=== PATIENT | male | born 1940 | race Caucasian/White ===

== ENCOUNTER → 2018-08-09 08:14 | Outpatient (CLI) | payer MEDICARE, SELFPAY ==
--- NOTE | 2018-08-09 08:40 | RAD_ITS ---
STUDY: X-RAY - LUMBAR SPINE REASON FOR EXAM: Male, 77 years old. Back pain and bilateral feet numbness TECHNIQUE: 5 view(s) of the lumbar spine were obtained. COMPARISON: 01/31/2015 FINDINGS: Normal lumbar lordosis. There is no substantial scoliosis. There is a normal alignment of the vertebrae. There is multilevel endplate spondylosis of the lumbar vertebrae. There is multi-level degenerative disc disease with multi-level disc space narrowing. There is no demonstrated fracture. The soft tissue structures are unremarkable. RAD/L/S Spine Min 4 Views IMPRESSION: Degenerative changes. No significant change since 2014. Electronically Signed: Lenin Xavier DO at 9:00 EST Tel , Service support ,
[2018-08-09 10:36] LABS: Absolute Lymphocyte Count 2.75 X10^3/ul (0.83-4.51); Absolute Neutrophil Count 6.9 X10^3/uL (2.0-7.7); Basophil# 0.03 X10^3/uL; Basophil% 0.3 % (0-1); Eosinophil# 0.17 X10^3/uL; Eosinophils% 1.6 % (0-5); Hematocrit 42.6 % (40-54); Hemoglobin 14.1 g/dl (13.0-16.5); Lymphocyte # 2.75 X10^3/ul (4.0); Lymphocyte % 25.7 % (19-41); Mean Corp Hgb Conc 33.1 g/gl (32-36); Mean Corpuscular Hgb 30.5 pg (27.0-32.0); Mean Corpuscular Volume 92.2 fL (80-94); Mean Platelet Vol. 9.9 fl (6.2-12.0); Monocyte# 0.79 X10^3/uL; Monocyte% 7.4 % (0-10); Neutrophil # 6.89 X10^3/uL (2.7-7.7); Neutrophil % 64.5 % (47-70); Platelet Count 263 K/mm3 (150-450); RBC Distribution Width CV 13.8 % (11.6-14.6); RBC Distribution Width SD 45.6 fl (35.1-43.9); Red Blood Count 4.62 M/mm3 (4.6-6.2); White Blood Count 10.7 K/mm3 (4.4-11.0)
[2018-08-09 10:37] LABS: Color, Urine Yellow (Yellow); Glucose, Dipstick Normal (Normal); Ketone-Dipstick Negative (Negative); Leukocyte Esterase-Dipstick Negative /ul (Negative); Nitrite-Dipstick Negative (Negative); Occult Blood-Urine 10 /ul (Negative); Protein-Dipstick 100 mg/dl (Negative); Urine Bilirubin Dipstick Negative (Negative); Urine Clarity Clear (Clear); Urine Urobilinogen Normal (Normal)
[2018-08-09 10:42] LABS: POSITIVE COUNT NO; POSITIVE DIFFERENTIAL NO; POSITIVE MORPHOLOGY NO
[2018-08-09 11:12] LABS: ALB/GLOB Ratio 0.9 RATIO (0.9-2.4); AST(SGOT) 22 U/L (15-37); Alanine Aminotransfer ALT/SGPT 33 U/L (16-61); Albumin, Serum 3.5 g/dL (3.2-5.0); Alkaline Phosphatase 79 U/L (45-117); Anion Gap 10 (5-15); BUN 15 mg/dL (7-18); BUN/Creat Ratio 13.3 RATIO (10-20); Calcium,Total 8.7 mg/dL (8.5-10.1); Chloride 101 mmol/L (98-107); Cholesterol 205 mg/dL (200); Creatinine, Serum 1.13 mg/dL (0.70-1.30); EST Glomerular Filtration Rate 67 mL/min (>60); Est Glom Filt Rate - Afr Amer 81 mL/min (>60); Globulin 3.9 g/dL (2.2-4.2); Glucose 93 mg/dL (74-106); High Density Lipoprotein 45 mg/dL; PSA,Total - Annual Screen 0.73 ng/mL (0.00-4.00); Potassium 3.7 mmol/L (3.5-5.1); Protein, Total 7.4 g/dL (6.4-8.2); Sodium Level 142 mmol/L (136-145); Triglycerides 185 mg/dL; Very Low Density Lipoprotein 37 mg/dL (5-40)
[2018-08-09 11:16] LABS: Vitamin B12 632 pg/mL (211-911)
--- OUTSIDE RECORDS SUMMARY | 2018-09-20 20:42 | XMS RPT_ITS ---
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, Hospital unspecified / Repository G60.9(ICD-10) 08/09/2018 Unknown Z12.5 - Encounter Charli Delvalle Active [place] for screening for [facility] malignant neoplasm Hospital of prostate / Repository Z12.5(ICD-10) 08/09/2018 Unknown M54.16 - MookCharli miles Active [place] Radiculopathy, [facility] lumbar region / Hospital M54.16(ICD-10) Repository PROCEDURES PROCEDURES No Procedure Records FoundRESULTS RESULTS L/S SPINE MIN 4 Observed: 08/09/2018 Status: F Source: [place] VIEWS 8:40 AM [facility] REPOSITORY [facility] Imaging Services [address] [place] [address] L/S Spine Min 4 Views MR#: [id number] Acct: [id number] Name: BARON MCCABE Rep #: [id number] : 1940 M 77 From: Lenin Xavier DO PCP: Charli Delvalle MD Status: REG CLI Study: L/S Spine Min 4 Views Date of Exam: 08/09/18 Exam# [id number] Ordering Dr: Charli Delvalle MD STUDY: X-RAY - LUMBAR SPINE REASON FOR EXAM: Male, 77 years old. Back pain and bilateral feet numbness TECHNIQUE: 5 view(s) of the lumbar spine were obtained. COMPARISON: 01/31/2015 FINDINGS: Normal lumbar lordosis. There is no substantial scoliosis. There is a normal alignment of the vertebrae. There is multilevel endplate spondylosis of the lumbar vertebrae. There is multi-level degenerative disc disease with multi-level disc space narrowing. There is no demonstrated fracture. The soft tissue structures are unremarkable. RAD/L/S Spine Min 4 Views IMPRESSION: Degenerative changes. No significant change since 2014. Electronically Signed: Lenin Xavier DO at 9:00 EST Tel , Service support , CC: Charli Delvalle MD [employer] Engineer: Signed URINALYSIS, ROUTINE Collected: 08/09/2018 Status: F Source: [place] (DIPSTICK) 8:23 AM [facility] REPOSITORY Order Comment: How was Urine Obtained? CLEAN CATCH TYPE CODE TESTS RESULT OUT OF RANGE REFERENCE UNITS LAB L400.3000 Yellow COLOR Normal Yellow LAB L400.3050 Clear Normal CLARITY Clear LAB L400.3200 Normal mg/dl Normal GLUCOSE, UR Normal LAB L400.3300 Negative mg/dL Normal BILIRUBIN URINE Negative LAB L400.3400 Negative mg/dl Normal KETONE UR Negative LAB L400.3465 1.002-1.030 Normal SP.GR. DIPSTX 1.010 LAB L400.3550 5.0 - 8.0 pH UR Normal 8.0 LAB L400.3600 Negative mg/dl High PROT DIPSTX 100 LAB L400.3700 Normal mg/dl Normal UROBILI Normal LAB L400.3750 Negative Normal NITRITE UR Negative LAB L400.3780 Negative /ul High 10 OCCULT BLOOD-UR LAB L400.3800 Negative /ul LEUK Normal ESTERASE Negative Performed By: #### L400.2010 #### [facility] [place], [address] CBC W/DIFF, AUTOMATED Collected: 08/09/2018 Status: F Source: [place] 8:23 AM [facility] REPOSITORY TYPE CODE TESTS RESULT OUT OF RANGE REFERENCE UNITS LAB L100.1000 4.4-11.0 K/mm3 Normal WBC 10.7 LAB L100.1200 4.6-6.2 M/mm3 Normal RBC 4.62 LAB L100.1300 13.0-16.5 g/dl Normal HGB 14.1 LAB L100.1400 40-54 % Normal HCT 42.6 LAB L100.1500 80-94 fL Normal MCV 92.2 LAB L100.1600 27.0-32.0 pg Normal MCH 30.5 LAB L100.1700 32-36 g/gl Normal MCHC 33.1 LAB L100.1810 11.6-14.6 % Normal RDW CV 13.8 LAB L100.1820 35.1-43.9 fl High RDW SD 45.6 LAB L100.1900 150-450 K/mm3 Normal PLT 263 LAB L100.2000 6.2-12.0 fl Normal MPV 9.9 LAB L100.2100 47-70 % Normal NEUT% 64.5 LAB L100.2200 19-41 % Normal LY% 25.7 LAB L100.2300 0-10 % Normal MONO% 7.4 LAB L100.2400 0-5 % Normal EO% 1.6 LAB L100.2500 0-1 % Normal BASO% 0.3 LAB L100.2550 0.0-0.9 % Normal IM GRAN % 0.500 Result Comment: IG% - Immature Granulocytes (promyelocytes, myelocytes and metamyelocytes) > 1% indicates that a LEFT SHIFT is Present. LAB L100.2620 2.0-7.7 X10 3/uL Normal Absolute Neut 6.9 LAB L100.2720 0.83-4.51 X10 3/ul Normal Absolute Lymph 2.75 Performed By: #### L100.0100 #### [facility] [address] [place], [address] COMPREHENSIVE METABOLIC Collected: 08/09/2018 Status: F Source: [place] [facility] 8:23 AM [facility] REPOSITORY TYPE CODE TESTS RESULT OUT OF RANGE REFERENCE UNITS LAB L501.0100 74-106 mg/dL Normal GLU 93 Result Comment: Please note revised GLUCOSE reference range effective 2017. LAB L501.1000 7-18 mg/dL Normal BUN 15 LAB L501.1100 0.70-1.30 mg/dL Normal CREAT,SERUM 1.13 Result Comment: The validity of the calculated GFR AND GFRAA in patients over 70 years has not been determined. Clinical correlation is essential. LAB L501.1110 >60 mL/min Normal EST GFR 67 Result Comment: Non- GFR Calc LAB L501.1115 >60 mL/min Normal EST GFR - AA 81 Result Comment: GFR Calc LAB L501.1300 10-20 RATIO Normal BUN/CRE 13.3 LAB L501.1500 6.4-8.2 g/dL T Normal PROT 7.4 LAB L501.1800 3.2-5.0 g/dL Normal ALB 3.5 LAB L501.1950 2.2-4.2 g/dL Normal GLOB 3.9 LAB L501.2000 0.9-2.4 RATIO Normal A/G 0.9 LAB L501.2200 8.5-10.1 mg/dL CA Normal 8.7 LAB L501.4100 15-37 U/L Normal AST 22 LAB L501.4305 45-117 U/L Normal ALK P 79 LAB L501.4405 16-61 U/L Normal ALT 33 LAB L501.4600 0.20-1.00 mg/dL T Normal BILI 0.50 LAB L501.5300 136-145 mmol/L NA Normal 142 LAB L501.5600 3.5-5.1 mmol/L K Normal 3.7 LAB L501.5900 98-107 mmol/L CL Normal 101 LAB L501.6100 21.0-32.0 mmol/L Normal CO2 31.0 LAB L501.6200 5-15 Normal GAP 10 Performed By: #### L500.4050, L500.4100, L501.9910 #### [facility] [address] [facility]. [place], [place], [address] LIPID PROFILE Collected: 08/09/2018 Status: F Source: [place] 8:23 AM [facility] REPOSITORY TYPE CODE TESTS RESULT OUT OF RANGE REFERENCE UNITS LAB L501.4900 200 mg/dL High CHOL 205 Result Comment: <200 mg/dL Desirable 200-240 mg/dL Borderline >240 mg/dL High Risk LAB L501.5000 mg/dL Normal TRIG 185 Result Comment: The drugs N-Acetylcysteine and Metamizole may falsely depress this assay. Serum Triglycerides Reference Interval Normal <150 mg/dL Borderline high 150 - 199 mg/dL High 200 - 499 mg/dL Very High > or = 500 mg/dL LAB L501.6400 mg/dL Normal HDL 45 Result Comment: The drugs N-Acetylcysteine and Metamizole may falsely depress this assay. Reference Range HDL <40 mg/dL Low HDL Cholesterol HDL >or= 60 mg/dL High HDL Cholesterol LAB L501.6500 0-130 mg/dL Normal LDL 123 LAB L501.6600 5-40 mg/dL Normal VLDL 37 Performed By: #### L500.4050, L500.4100, L501.9910 #### [facility] [address] [facility]. [place], [place], [address] PSA,TOTAL - ANNUAL Collected: 08/09/2018 Status: F Source: [place] SCREEN 8:23 AM [facility] REPOSITORY TYPE CODE TESTS RESULT OUT OF RANGE REFERENCE UNITS LAB L501.9910 0.00-4.00 ng/mL Normal PSA,TOT 0.73 SCREEN Result Comment: This test was performed using the TPSA assay method for the [employer] chemistry system. Values obtained with different assay methods cannot be used interchangably. When changing PSA assays in the course of monitoring a patient, additional sequential testing should be carried out to confirm baseline values. Performed By: #### L500.4050, L500.4100, L501.9910 #### [facility] [address] [place], [address] VITAMIN B12 Collected: 08/09/2018 Status: F Source: [place] 8:23 AM [facility] REPOSITORY TYPE CODE TESTS RESULT OUT OF RANGE REFERENCE UNITS LAB L503.0105 211-911 pg/mL Normal Vitamin B12 632 Performed By: #### L503.0105 #### [facility] [address] [place], [address] ALLERGIES ALLERGIES DATE TYPE / CODE NAME / CODE REACTION SEVERITY SOURCE 09/04/2014 Drug Penicillins/ Rash Unknown [facility] Allergy/4160 [id number]([facility] [address](SNOMED XNORM) Repository CT) ENCOUNTERS ENCOUNTERS ADMIT/DISCHARGE ACCOUNT ADMITTING ENCOUNTER LOCATION SOURCE NUMBER CLASS 08/09/2018 [id number] Ambulatory [place] [facility] ing:MTLAB Repository PAYERS PAYERS ENCOUNTER GUARANTOR PAYER SUBSCRIBER SOURCE 08/09/2018 Baron Ruby Primary Baron Mccabe [id number] Insurance:CHRISTOPHER Mccabe SRDOB: Community [place] [employer] [id number] Number: Repository [id number]: [phone] [id number] [phone] () Date:[id number] [address] [place] [id number]: 08/09/2018 Secondary NOT GIVENUNK [place] Insurance:SELF PAY [facility] Number: Effective Repository Date:2018-08-09
== END ==
PROVIDERS: Family Provider Family Medicine; PCP Family Medicine; Referring Provider Family Medicine; Visit Provider Family Medicine
DX: Z00.00 Encounter for general adult medical examination without abnormal findings (principal); I10 Essential (primary) hypertension; G60.9 Hereditary and idiopathic neuropathy, unspecified; Z12.5 Encounter for screening for malignant neoplasm of prostate; M54.16 Radiculopathy, lumbar region
CPT/HCPCS: 36415; 72110; 80053; 80061; 81002; 82607; 84153; 85025; G0103

== ENCOUNTER → 2019-08-15 09:26 | Outpatient (CLI) | payer MEDICARE, SELFPAY ==
[2019-08-15 12:47] LABS: Color, Urine Yellow (Yellow); Glucose, Dipstick Normal (Normal); Ketone-Dipstick Negative (Negative); Leukocyte Esterase-Dipstick Negative /ul (Negative); Nitrite-Dipstick Negative (Negative); Occult Blood-Urine 10 /ul (Negative); Protein-Dipstick 100 mg/dl (Negative); Urine Bilirubin Dipstick Negative (Negative); Urine Clarity Clear (Clear); Urine Urobilinogen Normal (Normal)
[2019-08-15 12:49] LABS: Absolute Lymphocyte Count 1.77 X10^3/uL (0.83-4.51); Basophil# 0.06 X10^3/uL; Basophil% 0.5 % (0-1); Eosinophil# 0.13 X10^3/uL; Hematocrit 43.5 % (40-54); Hemoglobin 14.2 g/dL (13.0-16.5); Lymphocyte # 1.77 X10^3/ul (4.0); Lymphocyte % 13.3 % (19-41); Mean Corp Hgb Conc 32.6 g/dL (32-36); Mean Corpuscular Hgb 29.5 pg (27.0-32.0); Mean Corpuscular Volume 90.2 fL (80-94); Mean Platelet Vol. 10.2 fl (6.2-12.0); Monocyte# 1.24 X10^3/uL; Monocyte% 9.3 % (0-10); NRBC Flagged by Analyzer 0 % (0-5); Neutrophil # 10.03 X10^3/uL (2.7-7.7); Neutrophil % 75.1 % (47-70); Platelet Count 200 K/mm3 (150-450); RBC Distribution Width CV 14.6 % (11.6-14.6); RBC Distribution Width SD 48.4 fl (35.1-43.9); Red Blood Count 4.82 M/mm3 (4.6-6.2); White Blood Count 13.3 K/mm3 (4.4-11.0)
[2019-08-15 13:15] LABS: AST(SGOT) 21 U/L (15-37); Alanine Aminotransfer ALT/SGPT 27 U/L (16-61); Albumin, Serum 3.7 g/dL (3.2-5.0); Alkaline Phosphatase 91 U/L (45-117); Anion Gap 6 (5-15); BUN 18 mg/dL (7-18); BUN/Creat Ratio 14.8 RATIO (10-20); Chloride 102 mmol/L (98-107); Cholesterol 212 mg/dL (200); Creatinine, Serum 1.22 mg/dL (0.70-1.30); EST Glomerular Filtration Rate 61 mL/min (>60); Est Glom Filt Rate - Afr Amer 74 mL/min (>60); Globulin 3.6 g/dL (2.2-4.2); Glucose 101 mg/dL (74-106); High Density Lipoprotein 45 mg/dL; PSA,Total - Annual Screen 0.85 ng/mL (0.00-4.00); Potassium 3.6 mmol/L (3.5-5.1); Protein, Total 7.3 g/dL (6.4-8.2); Sodium Level 139 mmol/L (136-145); Triglycerides 143 mg/dL; Very Low Density Lipoprotein 29 mg/dL (5-40)
[2019-08-15 14:48] LABS: Vitamin B12 755 pg/mL (211-911)
== END ==
PROVIDERS: Family Provider Family Medicine; PCP Family Medicine; Referring Provider Family Medicine; Visit Provider Family Medicine
DX: Z00.00 Encounter for general adult medical examination without abnormal findings (principal); I10 Essential (primary) hypertension; G60.9 Hereditary and idiopathic neuropathy, unspecified; Z12.5 Encounter for screening for malignant neoplasm of prostate
CPT/HCPCS: 36415; 80053; 80061; 81002; 82607; 84153; 85025; G0103

== ENCOUNTER → 2019-11-08 15:02 | Outpatient (CLI) | payer MEDICARE, SELFPAY ==
--- NOTE | 2019-11-08 15:05 | RAD_ITS ---
STUDY: X-RAY - RIGHT KNEE REASON FOR EXAM: Right knee pain, several recent falls. TECHNIQUE: 4 view(s) of the knee. COMPARISON: Radiographs 01/17/2010. FINDINGS: Normal visualized distal femur. Normal visualized proximal tibia and fibula. Normal proximal tibiofibular articulation. There is moderate joint space narrowing of the medial femorotibial compartment, increased since the prior study. Normal lateral femorotibial compartment. Normal patellofemoral articulation. There is a joint effusion. RAD/Knee 4 or More Views IMPRESSION: Arthrosis of the medial femorotibial compartment. Joint effusion. Electronically Signed: Asa Lilly MD at 9:55 EST Tel , Service support ,
== END ==
PROVIDERS: PCP Family Medicine; Referring Provider Family Medicine; Visit Provider Family Medicine
DX: M25.561 Pain in right knee (principal)
CPT/HCPCS: 73564

== ENCOUNTER 2020-01-23 17:12 | Inpatient (IN) | payer OTHER, MEDICARE, SELFPAY ==
[2020-01-23] VITALS (8 sets, daily range): BP systolic 112–157; BP diastolic 50–98; PULSE 82–90; RESP 17–26; TEMP 37.1–37.7; O2SAT 91–96; BMI 37.9; BMI 37.5
--- NOTE | 2020-01-23 17:38 | ED.VIS.GEN ---
History of Present Illness Chief Complaint: Fever Informant: Patient Onset: Today Narrative: Patient presents with a fever up to 101.5 at home today. He took Tylenol approximately 5-1/2 hours ago. Patient's only complaint is pain to his bilateral lower extremities. Last Wednesday, 5 days ago, patient had a fall at work. He got his legs caught in some fire machinery and fell approximately 2 feet to the ground. He was seen at [facility] and had x-rays which were unremarkable. He continues to have swelling and bruising to his lower extremities. He also reports mild left rib pain, worse with cough. He did strike his ribs at the time. Patient denies significant cough or shortness of breath. He denies urinary symptoms. - Past Medical History (1) HTN (hypertension) Status: Chronic Past Medical History - Allergies and Home Meds Allergies/Adverse Reactions: Allergies Penicillins [PCN] Allergy (Verified 01/23/20 17:13) Rash oxycodone Adverse Reaction (Verified 01/23/20 17:31) PT UNSURE OF REACTION Primary Care Physician: Charli Delvalle MD [Primary Care Provider] - Prior records reviewed: Yes Surgical History: repair Smoking Status: Former smoker Review of Systems General: Reports: Fever Eyes: Denies: Visual changes - bilaterally ENT: Denies: Bilateral ear pain Cardiovascular: Reports: Chest pain - Left rib pain Respiratory: Denies: Dyspnea, Cough Gastrointestinal: Denies: Abdominal pain, Nausea, Vomiting, Diarrhea Musculoskeletal: Reports: Swelling, Extremity Pain Skin: Reports: - - Ecchymoses Neurological: Denies: Headache Hematologic: Denies: Easy bruising, Easy bleeding Allergy: Denies: Uticaria Physical Exam Vital Signs/Narrative: Vital Signs Temp Pulse Resp BP Pulse Ox 01/23/20 17:28 84 23 H 95 01/23/20 17:14 98.7 F 90 17 130/80 H 94 Inital Vital Signs reviewed: Yes General: Well nourished, Well developed Head: Normocephalic ENT: Moist mucous membranes Neck: Supple Cardiovascular: Regular rate, Regular rhythm Respiratory: No distress, CTA bilaterally, Chest tenderness - Mild left anterior chest wall tenderness. No crepitus. Abdomen: Soft, Nontender Extremities: - - 3+ edema to the bilateral lower extremities. Large area of ecchymosis noted on the posterior surface of the right lower leg. Neurological: Alert, Oriented x3 Psychological: Normal affect Diagnostic/Tx/Re-eval Impressions Chest X-Ray 01/23/20 17:57 IMPRESSION: No acute thoracic pathology. Electronically Signed: Ever Ly, at 18:07 EDT Tel , Service support , Venous Duplex 01/23/20 18:03 IMPRESSION: Normal venous Doppler ultrasound of the bilateral lower extremities. Electronically Signed: Ever Ly, at 19:05 EDT Tel , Service support , 01/23/20 17:57 Chest 1 View (Portable) [RAD] Stat Laboratory Results 01/23/20 01/23/20 01/23/20 17:45 17:45 19:50 WBC 21.6 H RBC 4.08 L Hgb 12.6 L Hct 38.8 L MCV 95.1 H MCH 30.9 MCHC 32.5 RDW Std Deviation 47.0 H RDW Coeff of Louis 13.6 Plt Count 269 MPV 10.0 Immature Gran % (Auto) 1.000 H Neut % (Auto) 77.4 H Lymph % (Auto) 12.4 L [place] % (Auto) 8.9 Eos % (Auto) 0.1 Baso % (Auto) 0.2 Absolute Neuts (auto) 16.7 H Absolute Lymphs (auto) 2.68 Nucleated RBC % 0 Differential Comment SCANNED Sodium 134 L Potassium 3.6 Chloride 96 L Carbon Dioxide 30.0 Anion Gap 8 BUN 44 H Creatinine 1.77 H Estim Creat Clear Calc 31.54 Est GFR (MDRD) Af Amer 48 L Est GFR (MDRD) Non-Af 40 L BUN/Creatinine Ratio 24.9 H Glucose 129 H Lactic Acid Calcium 9.2 Urine Color Yellow Urine Clarity Sl. Cloudy Urine pH 5.0 Ur Specific [place] 1.020 Urine Protein 100 H Urine Glucose (UA) Normal Urine Ketones Negative Urine Occult Blood 50 H Urine Nitrite Negative Urine Bilirubin Negative Urine Urobilinogen Normal Ur Leukocyte Esterase 25 H Urine RBC 0-5 SEEN Urine WBC 0-5 SEEN Ur Squamous Epith Cells 0-5 SEEN Amorphous Sediment 1+ URATE Urine Bacteria 0 SEEN Hyaline Casts 0-5 SEEN Fine Granular Casts 0-5 SEEN Urine Mucus 0 SEEN 01/23/20 20:05 WBC RBC Hgb Hct MCV MCH MCHC RDW Std Deviation RDW Coeff of Louis Plt Count MPV Immature Gran % (Auto) Neut % (Auto) Lymph % (Auto) [place] % (Auto) Eos % (Auto) Baso % (Auto) Absolute Neuts (auto) Absolute Lymphs (auto) Nucleated RBC % Differential Comment Sodium Potassium Chloride Carbon Dioxide Anion Gap BUN Creatinine Estim Creat Clear Calc Est GFR (MDRD) Af Amer Est GFR (MDRD) Non-Af BUN/Creatinine Ratio Glucose Lactic Acid 1.4 Calcium Urine Color Urine Clarity Urine pH Ur Specific [place] Urine Protein Urine Glucose (UA) Urine Ketones Urine Occult Blood Urine Nitrite Urine Bilirubin Urine Urobilinogen Ur Leukocyte Esterase Urine RBC Urine WBC Ur Squamous Epith Cells Amorphous Sediment Urine Bacteria Hyaline Casts Fine Granular Casts Urine Mucus - Medical Decision Making Laboratory evaluation does reveal significant leukocytosis. Creatinine is elevated above baseline. Repeat temperature here is been up to 99.9. At this time patient does qualify as sepsis but do not have a confirmed source. He is given cefepime and vancomycin for unknown source sepsis antibiotics. I will also have him swab for Covid as I do not have another source for his infection. I will discuss patient with the hospitalist for admission. ED Disposition - Plan for ED Patient: Disposition: Acute Care Hospital [facility] Diagnosis: Sepsis Referrals: Charli Delvalle MD [Primary Care Provider] -
--- NOTE | 2020-01-23 17:57 | RAD_ITS ---
STUDY: X-RAY CHEST REASON FOR EXAM: Male, 79 years old. Fever TECHNIQUE: Frontal view of the chest COMPARISON: None. FINDINGS: The lungs are clear. There are no pleural effusions. There is no pneumothorax. The heart is normal in size. The visualized osseous structures are within normal limits. RAD/Chest 1 View (Portable) IMPRESSION: No acute thoracic pathology. Electronically Signed: Ever Ly, at 18:07 EDT Tel , Service support ,
--- NOTE | 2020-01-23 18:03 | US_ITS ---
STUDY: VENOUS DOPPLER ULTRASOUND - BILATERAL LOWER EXTREMITIES REASON FOR EXAM: Male, 79 years old. Pain and swelling TECHNIQUE: Ultrasound evaluation of the deep vein system to include brady-scale imaging and compression was performed. Brady-scale imaging and Doppler sonographic evaluation, including duplex spectral analysis and qualitative color flow sonography, was performed. COMPARISON: None. FINDINGS: RIGHT LEG Common Femoral Vein: Normal compression, spontaneity and augmentation. Normal color Doppler. Superficial Femoral Proximal: Normal compression, spontaneity and augmentation. Normal color Doppler. Superficial Femoral Middle: Normal compression, spontaneity and augmentation. Normal color Doppler. Superficial Femoral Distal: Normal compression, spontaneity and augmentation. Normal color Doppler. Popliteal Vein: Normal compression, spontaneity and augmentation. Normal color Doppler. Posterior Tibial Vein: Normal compression, spontaneity and augmentation. Normal color Doppler. The visualized soft tissues are unremarkable. LEFT LEG Common Femoral Vein: Normal compression, spontaneity and augmentation. Normal color Doppler. Superficial Femoral Proximal: Normal compression, spontaneity and augmentation. Normal color Doppler. Superficial Femoral Middle: Normal compression, spontaneity and augmentation. Normal color Doppler. Superficial Femoral Distal: Normal compression, spontaneity and augmentation. Normal color Doppler. Popliteal Vein: Normal compression, spontaneity and augmentation. Normal color Doppler. Posterior Tibial Vein: Normal compression, spontaneity and augmentation. Normal color Doppler. The visualized soft tissues are unremarkable. US/Venous Duplex Imag/Wes Extrem IMPRESSION: Normal venous Doppler ultrasound of the bilateral lower extremities. Electronically Signed: Ever Aliyah, at 19:05 EDT Tel , Service support ,
[2020-01-23 18:21] LABS: Anion Gap 8 (5-15); BUN 44 mg/dL (7-18); BUN/Creat Ratio 24.9 RATIO (10-20); Calcium,Total 9.2 mg/dL (8.5-10.1); Chloride 96 mmol/L (98-107); Creatinine, Serum 1.77 mg/dL (0.70-1.30); EST Glomerular Filtration Rate 40 mL/min (>60); Est Glom Filt Rate - Afr Amer 48 mL/min (>60); Estimated Creatinine Clearance 31.54 ml/min; Glucose 129 mg/dL (74-106); Potassium 3.6 mmol/L (3.5-5.1); Sodium Level 134 mmol/L (136-145)
[2020-01-23 18:26] LABS: Absolute Lymphocyte Count 2.68 X10^3/uL (0.83-4.51); Absolute Neutrophil Count 16.7 X10^3/uL (2.0-7.7); Basophil# 0.04 X10^3/uL; Basophil% 0.2 % (0-1); Eosinophil# 0.03 X10^3/uL; Eosinophils% 0.1 % (0-5); Hematocrit 38.8 % (40-54); Hemoglobin 12.6 g/dL (13.0-16.5); Lymphocyte # 2.68 X10^3/ul (4.0); Lymphocyte % 12.4 % (19-41); Mean Corp Hgb Conc 32.5 g/dL (32-36); Mean Corpuscular Hgb 30.9 pg (27.0-32.0); Mean Corpuscular Volume 95.1 fL (80-94); Monocyte# 1.92 X10^3/uL; Monocyte% 8.9 % (0-10); NRBC Flagged by Analyzer 0 % (0-5); Neutrophil # 16.74 X10^3/uL (2.7-7.7); Neutrophil % 77.4 % (47-70); POSITIVE DIFFERENTIAL YES; Platelet Count 269 K/mm3 (150-450); RBC Distribution Width CV 13.6 % (11.6-14.6); Red Blood Count 4.08 M/mm3 (4.6-6.2); White Blood Count 21.6 K/mm3 (4.4-11.0)
[2020-01-23 18:27] LABS: Differential Indicated SCAN CRITERIA MET
[2020-01-23 18:44] LABS: Differential Comment SCANNED
[2020-01-23 19:56] LABS: Bacteria 0 SEEN /hpf (None Seen); Mucous, Urine 0 SEEN /hpf (<or=2+)
--- NOTE | 2020-01-23 20:02 | ED.RN ---
spoke with Dr. Devlin- ordering a lactic acid for sepsis alert.
[2020-01-23 20:03] LABS: Color, Urine Yellow (Yellow); Glucose, Dipstick Normal (Normal); Ketone-Dipstick Negative (Negative); Leukocyte Esterase-Dipstick 25 /ul (Negative); Nitrite-Dipstick Negative (Negative); Occult Blood-Urine 50 /ul (Negative); Protein-Dipstick 100 mg/dl (Negative); Urine Bilirubin Dipstick Negative (Negative); Urine Clarity Sl. Cloudy (Clear); Urine Urobilinogen Normal (Normal)
[2020-01-23 20:12] LABS: Red Blood Cells-Urine 0-5 SEEN /hpf (0-5); Squamous Epithelial Cells - UA 0-5 SEEN /hpf (0-5); White Blood Cells 0-5 SEEN /hpf (0-5)
[2020-01-23 20:13] LABS: Amorphous Sediment 1+ URATE; Fine Granular Cast- Urine 0-5 SEEN /lpf (0-5); Hyaline Cast 0-5 SEEN /lpf (0-5)
[2020-01-23 20:40] LABS: Lactic Acid 1.4 mmol/L (0.4-1.9)
--- NOTE | 2020-01-23 21:28 | HP.PCM_ITS ---
Problem List (1) Cardiomyopathy Status: Chronic Qualifiers: Cardiomyopathy type: unspecified Qualified Code(s): I42.9 - Cardiomyopathy, unspecified (2) Congenital heart anomaly Status: Chronic (3) LLOYD (acute kidney injury) Status: Acute (4) SIRS (systemic inflammatory response syndrome) Status: Acute (5) Lower extremity weakness Status: Acute Qualifiers: Laterality: bilateral Qualified Code(s): R29.898 - Other symptoms and signs involving the musculoskeletal system (6) HTN (hypertension) Status: Chronic History of Present Illness Date of Admission: 01/23/20 Chief Complaint: weakness The patient is a 79 year old M who on last Wednesday had 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 Patient states that he fell roughly 2 to 3 feet. He injured his ankles and hit his head. Patient was evaluated by Worker's Comp. service, [facility], who he states did imaging and then subsequently sent him home. He does not think that he had a head CT. He denies any loss of consciousness. Since then, he is just been weak in his lower extremities been unable to get up. He has been experiencing fevers as of today and presented to the emergency room. In the emergency room, he was afebrile, however, his white count was 21,000 and he had acute kidney injury with a creatinine of 1.77. Chest x-ray was unremarkable as well as urinalysis. Patient was started on cefepime as well as vancomycin. COVID-19 testing was performed and still pending at this time. Patient denies any known sick contacts with COVID. He denies any bowel or bladder incontinen ce. He states that normally he uses a cane just to help with stabilization but normally is able to get up and down okay with with his legs but since his injury has been unable to do so. He states that he is having increased lower extremity edema as well as some skin tears to his lower extremities. [] Past Medical History Past Medical History (Chronic Problems): Chronic Problems Cardiomyopathy (Chronic) Congenital heart anomaly (Chronic) HTN (hypertension) (Chronic) Allergies Penicillins [PCN] Allergy (Verified 01/23/20 17:13) Rash oxycodone Adverse Reaction (Verified 01/23/20 17:31) PT UNSURE OF REACTION Home Medications: Ambulatory Orders Medication Instructions Recorded Acetaminophen [Tylenol Extra 500 mg PO Q4H PRN PRN 01/23/20 Strength] Calcium Carbonate [Tums] 1,000 mg PO DAILY@0800 01/23/20 Saab Extract 1,200 mg PO DAILY 01/23/20 Cider Vinegar [Apple Cider Vinegar] 300 mg PO BID 01/23/20 Hydrochlorothiazide [Hctz] 25 mg PO DAILY 01/23/20 Lisinopril [Zestril] 40 mg PO DAILY 01/23/20 Metoprolol Succinate [Toprol Xl] 100 mg PO DAILY 01/23/20 Multivitamins,Therapeutic 1 tab PO DAILY 01/23/20 [Multivitamin] Selenium 200 mcg PO DAILY 01/23/20 Verapamil HCl [Verapamil ER] 240 mg PO DAILY 01/23/20 Surgical History: repair Smoking Status: Former smoker Tobacco Use: Non-smoker Alcohol: None Drugs: None - *Family History Maternal History Items: - - No heart disease Review of Systems Constitutional: Reports: Fever. Denies: Chills Eyes: Denies: Blurred vision, Conjunctivae Inflammation HEENT: Denies: Head Aches, Sinus Congestion, Sinus Drainage Cardiovascular: Denies: Chest Pain, Palpitations Respiratory: Denies: Cough, Shortness of breath at rest, Sputum production Gastrointestinal: Denies: Abdominal Pain, Nausea, Vomiting Genitourinary: Denies: Dysuria, Incontinence Musculoskeletal: Reports: Leg Pain Skin: Reports: Lesions Neurological: Reports: Tremor - In upper extremities for years. Has not been looked into by a neurologist. He is unaware if he has an essential tremor or some other process. Comment: All review of systems were negative except as mentioned above in the history of present illness and the other review of systems. VTE Information - Inpt Only VTE Present on Admission: No VTE Mechan Device Prophylaxis: None VTE Pharm Prophylaxis ordered?: Yes Patient Problems: Active and Suspected Problems Sepsis (Acute) LLOYD (acute kidney injury) (Acute) SIRS (systemic inflammatory response syndrome) (Acute) Lower extremity weakness (Acute) - Physical Exam Vitals/I&O's: Vital Signs Temp Pulse Resp BP Pulse Ox 37.4 C H 85 20 H 119/88 H 94 01/23/20 21:20 01/23/20 21:20 01/23/20 21:20 01/23/20 21:20 01/23/20 21:20 Oxygen Delivery Method Room Air Weight: 106.594 kg Body Mass Index (BMI) 37.9 General: Alert, Cooperative, No apparent distress HEENT: Atraumatic, Normocephalic, - - No icterus Oral: Moist Mucosa, No Gingival or Mucosal Lesions/ Ulcerations Neck: No JVD, Negative Hepatojugular Reflux Lungs: Clear to auscultation, Normal air movement, No rhonchi, No wheeze Cardiovascular: Regular rate, Regular Rhythm, Normal S1, Normal S2, No murmurs Abdomen: Bowel Sounds Present, Soft, Non Tender, Non-Distended, Obese Extremities: No clubbing, No cyanosis, Edema Skin: - - Skin tear left anterior kraft. Bruising on the right lower extremity. Musculoskeletal: - - Tender palpation with palpation over his ankle. Neurological: - - No clonus. Muscle strength is diminished in the lower extremities with plantar flexion as well as dorsiflexion of the great toe. Psych/Mental Status: Normal Affect, Appropriate Laboratory Results 01/23/20 17:45: WBC 21.6 H, RBC 4.08 L, Hgb 12.6 L, Hct 38.8 L, MCV 95.1 H, MCH 30.9, MCHC 32.5, RDW Std Deviation 47.0 H, RDW Coeff of Louis 13.6, Plt Count 269, MPV 10.0, Immature Gran % (Auto) 1.000 H, Neut % (Auto) 77.4 H, Lymph % (Auto) 12.4 L, [place] % (Auto) 8.9, Eos % (Auto) 0.1, Baso % (Auto) 0.2, Absolute Neuts (auto) 16.7 H, Absolute Lymphs (auto) 2.68, Nucleated RBC % 0, Differential Comment SCANNED 01/23/20 17:45: Sodium 134 L, Potassium 3.6, Chloride 96 L, Carbon Dioxide 30.0, Anion Gap 8, BUN 44 H, Creatinine 1.77 H, Estim Creat Clear Calc 31.54, Est GFR (MDRD) Af Amer 48 L, Est GFR (MDRD) Non-Af 40 L, BUN/Creatinine Ratio 24.9 H, Glucose 129 H, Calcium 9.2 01/23/20 19:50: Urine Color Yellow, Urine Clarity Sl. Cloudy, Urine pH 5.0, Ur Specific [place] 1.020, Urine Protein 100 H, Urine Glucose (UA) Normal, Urine Ketones Negative, Urine Occult Blood 50 H, Urine Nitrite Negative, Urine Bilirubin Negative, Urine Urobilinogen Normal, Ur Leukocyte Esterase 25 H, Urine RBC 0-5 SEEN, Urine WBC 0-5 SEEN, Ur Squamous Epith Cells 0-5 SEEN, Amorphous Sediment 1+ URATE, Urine Bacteria 0 SEEN, Hyaline Casts 0-5 SEEN, Fine Granular Casts 0-5 SEEN, Urine Mucus 0 SEEN 01/23/20 20:05: Lactic Acid 1.4 01/23/20 21:00: COVID-19 (ALEXANDRA) Pending Chest x-ray reviewed and showed no acute process. Clinical Impression(s) from Imaging Studies Chest X-Ray 01/23/20 17:57 IMPRESSION: No acute thoracic pathology. Electronically Signed: Ever Ly, at 18:07 EDT Tel , Service support , Venous Duplex 01/23/20 18:03 IMPRESSION: Normal venous Doppler ultrasound of the bilateral lower extremities. Electronically Signed: Ever Ly, at 19:05 EDT Tel , Service support , Current Medications Vancomycin HCl 2,000 mg/ (Sodium Chloride) 540 mls @ 250 mls/hr IV X1 ONE Stop: 01/23/20 23:09 Assessment/Plan All Active Problems Sepsis (Acute) LLOYD (acute kidney injury) (Acute) SIRS (systemic inflammatory response syndrome) (Acute) Lower extremity weakness (Acute) 1. Systemic inflammatory response syndrome: Unclear source at this time so cannot definitively qualify this as sepsis though if source is later identified then could be then use his diagnosis. Etiology could be his from injury he sustained in his lower extremities. No evidence of any kind of clinical compartment syndrome at this time. Also patient could just also have potentially contracted an illness, such as COVID-19, that coincided with his recent injury. I would not feel that the COVID-19 would be elucidating his lower extremity weakness, however. Patient received cefepime and vancomycin in the emergency room, will continue with that and follow-up cultures and de- escalate antibiotics accordingly. Feel the risk for MRSA infection is low but will check a swab for MRSA and if that comes back negative then would recommend discontinuing vancomycin unless cultures would support the continued use of that. Patient being checked for COVID-19. No evidence of pneumonia on the chest x-ray nor any evidence of a urinary tract infection on the urinalysis. Check a d-dimer. 2. Acute kidney injury: Likely prerenal. Patient states that he has not been drinking very much. Will hold his HCTZ and lisinopril for now. Will give IV fluids. 3. Lower extremity weakness. This is subjective as well as objectively identified with decreased strength in his lower extremities. Will check an MRI of his back to see if there is been any injury. Ordering an MRI of his lumbar spine. May consider getting a lumbar of his thoracic spine if symptoms are still ongoing in the lumbar spine MRI was negative. Will have physical and occupational therapy evaluate him. 4. Recent workplace injury. 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 Because he hit his head will order head CT to evaluate for any other acute process. Clinically I do not suspect that he has had any acute issues, such as a subdural hematoma. At this time, I cannot say that his systemic inflammatory response syndrome is due to this workplace injury. 5. 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 Asked patient specifically what his congenital heart disorder was, such as PDA, he states that he does not now. Being that I do not know the extent of his cardiomyopathy would expressed caution with aggressive IV fluid. Continue with metoprolol succinate. 6. VTE prophylaxis: Moderate risk. Low molecular weight heparin. 7. Advanced care planning: Patient wishes to be full CODE STATUS. Inpatient E&M: 56177 Init Hosp L3
--- NOTE | 2020-01-23 21:58 | CT_ITS ---
STUDY: CT BRAIN WITHOUT CONTRAST REASON FOR EXAM: Male, 79 years old. Fall. RADIATION DOSAGE (If Supplied By Facility): CTDIvol = ( 44.99 ) mGy, DLP = ( 779.24 ) mGycm TECHNIQUE: Transaxial CT imaging of the brain was performed without administration of intravenous contrast material. Individualized dose optimization techniques were used for this CT. COMPARISON: None. FINDINGS: There is no acute bleed or infarct. There are chronic ischemic and atrophic changes. The ventricles are normal in configuration. There is no hydrocephalus. The visualized paranasal sinuses are clear. The mastoid air cells are well aerated. There is no skull fracture. CT/Brain/Head without Contrast IMPRESSION: No acute intracranial abnormality. Chronic ischemic and atrophic changes. Electronically Signed: Ever Ly, at 22:59 EDT Tel , Service support ,
[2020-01-23] MEDS: 0.9% Normal Saline 1,000 ML 150 ML IV (23:00)
[2020-01-24] VITALS (8 sets, daily range): BP systolic 141–162; BP diastolic 70–89; PULSE 72–89; RESP 16–22; TEMP 36.6–37.2; O2SAT 93–97
[2020-01-24 00:15] LABS: D-Dimer Quantitative (DVT/PE) 2.46 FEU/ug/m (0.27-0.49)
--- NOTE | 2020-01-24 02:43 | PCM.RX.CS ---
Consult Pharmacy has been consulted to manage selected antiobiotic: Vancomycin Type of Consult: New start Labs: Sodium 134 mmol/L (136-145) L 01/23/20 17:45 Potassium 3.6 mmol/L (3.5-5.1) 01/23/20 17:45 Chloride 96 mmol/L (98-107) L 01/23/20 17:45 Carbon Dioxide 30.0 mmol/L (21.0-32.0) 01/23/20 17:45 Anion Gap 8 (5-15) 01/23/20 17:45 BUN 44 mg/dL (7-18) H 01/23/20 17:45 Creatinine 1.77 mg/dL (0.70-1.30) H 01/23/20 17:45 Est GFR (MDRD) Af Amer 48 mL/min (>60) L 01/23/20 17:45 Est GFR (MDRD) Non-Af 40 mL/min (>60) L 01/23/20 17:45 BUN/Creatinine Ratio 24.9 RATIO (10-20) H 01/23/20 17:45 Glucose 129 mg/dL (74-106) H 01/23/20 17:45 Microbiology: Microbiology 01/23/20 21:00 Mucosa - Nasopharyngeal Coronavirus COVID-19 PCR - Final Goal Trough: 15-20 mcg/mL Pharmacy Plan for Drug Dosing: Pharmacy Service will continue to monitor and adjust dosing as required. Medications Vancomycin HCl 750 mg/ Sodium (Chloride) 265 mls @ 250 mls/hr IV Q12H PASCUAL Discontinued Medications Vancomycin HCl 2,000 mg/ (Sodium Chloride) 540 mls @ 250 mls/hr IV X1 ONE Stop: 01/23/20 23:09 Last Admin: 01/24/20 00:29 Dose: Infused Documented by: Follow-Up Labs: Trough Vancomycin Labs to be done on [date and time ordered]: 01/24 @ 9000
[2020-01-24 04:12] LABS: Basophil# 0.07 X10^3/uL; Basophil% 0.4 % (0-1); Eosinophil# 0.08 X10^3/uL; Eosinophils% 0.4 % (0-5); Hematocrit 36.7 % (40-54); Lymphocyte % 13.2 % (19-41); Mean Corp Hgb Conc 32.7 g/dL (32-36); Mean Corpuscular Hgb 30.7 pg (27.0-32.0); Mean Corpuscular Volume 93.9 fL (80-94); Mean Platelet Vol. 9.9 fl (6.2-12.0); Monocyte# 2.12 X10^3/uL; Monocyte% 11.2 % (0-10); NRBC Flagged by Analyzer 0 % (0-5); Neutrophil # 14.02 X10^3/uL (2.7-7.7); Neutrophil % 73.9 % (47-70); POSITIVE DIFFERENTIAL YES; Platelet Count 247 K/mm3 (150-450); RBC Distribution Width CV 13.6 % (11.6-14.6); RBC Distribution Width SD 46.2 fl (35.1-43.9); Red Blood Count 3.91 M/mm3 (4.6-6.2)
[2020-01-24 04:20] LABS: Differential Indicated SCAN CRITERIA MET
[2020-01-24 04:25] LABS: ALB/GLOB Ratio 0.5 RATIO (0.9-2.4); AST(SGOT) 35 U/L (15-37); Alanine Aminotransfer ALT/SGPT 29 U/L (16-61); Albumin, Serum 2.3 g/dL (3.2-5.0); Alkaline Phosphatase 75 U/L (45-117); Anion Gap 10 (5-15); BUN 47 mg/dL (7-18); BUN/Creat Ratio 29.2 RATIO (10-20); Calcium,Total 8.4 mg/dL (8.5-10.1); Chloride 97 mmol/L (98-107); Creatinine, Serum 1.61 mg/dL (0.70-1.30); EST Glomerular Filtration Rate 44 mL/min (>60); Est Glom Filt Rate - Afr Amer 54 mL/min (>60); Estimated Creatinine Clearance 34.67 ml/min; Globulin 4.7 g/dL (2.2-4.2); Glucose 141 mg/dL (74-106); Potassium 3.2 mmol/L (3.5-5.1); Sodium Level 136 mmol/L (136-145)
[2020-01-24 04:50] LABS: Anisocytosis RARE; Hypochromasia 1+; Platelet Estimate ADEQUATE (ADEQ); Polychromasia RARE
[2020-01-24] MEDS: Enoxaparin 120 MG/0.8 ML Syringe 110 MG SC ×2 (05:25→17:30)
--- NOTE | 2020-01-24 07:45 | MRI_ITS ---
STUDY: MRI LUMBAR SPINE WITHOUT CONTRAST REASON FOR EXAM: Male, 79 years old. leg weakness, unable to walk, s/p 2-3 ft fall, SIRS TECHNIQUE: Standardized fat and water weighted pulse sequences were obtained in the sagittal and axial planes. COMPARISON: 08/09/2018 FINDINGS: T12-L1: Normal endplates. Normal disc height, hydration and morphology. Normal bilateral facet joints. Normal central canal and bilateral lateral recesses. Normal bilateral intervertebral neural foramina. Normal lumbar lordosis. There is no substantial scoliosis. Normal conus medullaris that terminates at the T12/L1. L1-2: Mild bilateral facet hypertrophy and ligament flavum hypertrophy. Mild bilobed disc protrusion which produces mild spinal stenosis and mild bilateral neural foraminal stenosis. L2-3: Moderate bilateral facet hypertrophy and ligament flavum hypertrophy. Moderate broad disc protrusion produces severe spinal stenosis with moderate bilateral lateral recess stenosis with abutment of the L3 nerve roots bilaterally and moderate bilateral neural foraminal stenosis with abutment of the exiting L2 nerve roots bilaterally. L3-4: Mild bilateral facet hypertrophy and ligament flavum hypertrophy. Mild broad disc protrusion produces mild spinal stenosis with mild bilateral lateral recess stenosis, mild left neural foraminal stenosis, moderate right neural foraminal stenosis with abutment of the right L3 nerve root laterally. L4-5: Mild bilateral facet hypertrophy and ligament flavum hypertrophy. Mild broad disc protrusion produces mild focal stenosis and mild bilateral neural foraminal stenosis. L5-S1: Normal endplates. Normal disc height, hydration and morphology. Normal bilateral facet joints. Normal central canal and bilateral lateral recesses. Normal bilateral intervertebral neural foramina. Normal visualized sacral ala. Normal visualized paraspinous soft tissue structures. MRI/Spine Lumbar (Routine) IMPRESSION: Multilevel degenerative changes, as described above. Electronically Signed: Jamey Marvin MD at 9:15 EDT Tel , Service support ,
--- NOTE | 2020-01-24 07:56 | PN_ITS ---
Patient Problems: Active and Suspected Problems Sepsis (Acute) LLOYD (acute kidney injury) (Acute) SIRS (systemic inflammatory response syndrome) (Acute) Lower extremity weakness (Acute) Reason for Visit: Follow-up on debility Subjective: Patient was seen and examined. Denied any fever or chills or back pain. Unable to move his lower extremity. He is able to move his upper extremity. Denies any incontinence of urine or stool. He has decreased sensation in his lower extremity. Feels more on the left lower extremity than the right. Denies any fever or chills. His COVID?19 test was negative x2. Vitals/I&O's: Vital Signs Temp Pulse Resp BP Pulse Ox 98 F 72 16 141/89 H 94 01/24/20 06:00 01/24/20 06:00 01/24/20 06:00 01/24/20 06:00 01/24/20 06:00 Oxygen Delivery Method Room Air Weight: 105.5 kg Body Mass Index (BMI) 37.5 Intake and Output for Last 24 Hours 01/22/20 01/23/20 01/24/20 23:59 23:59 23:59 Intake Total 327.5 / 327.5 Balance 327.5 / 327.5 General: Alert, Oriented x3, Cooperative, No apparent distress, - - Morbidly obese HEENT: Atraumatic, PERRLA, EOMI, Normocephalic Oral: Moist Mucosa Neck: Supple Lungs: Clear to auscultation Cardiovascular: Regular rate, Regular Rhythm, Normal S1, Normal S2, No murmurs Abdomen: Bowel Sounds Present, Soft, Non Tender, Non-Distended, No Hepato- splenomegaly Extremities: No edema Skin: No rashes Musculoskeletal: No Tenderness to Palpation of Joints or Extremities Lymphatic: No Cervical, Supraclavicular, or Inguinal Adenopathy Neurological: Cranial nerves II-XII grossly intact, Neuro grossly intact Psych/Mental Status: Normal Affect, Appropriate Microbiology Past 72 Hours 01/23/20 21:00 Mucosa - Nasopharyngeal Coronavirus COVID-19 PCR - Final Laboratory Results 01/23/20 17:45: WBC 21.6 H, RBC 4.08 L, Hgb 12.6 L, Hct 38.8 L, MCV 95.1 H, MCH 30.9, MCHC 32.5, RDW Std Deviation 47.0 H, RDW Coeff of Louis 13.6, Plt Count 269, MPV 10.0, Immature Gran % (Auto) 1.000 H, Neut % (Auto) 77.4 H, Lymph % (Auto) 12.4 L, [place] % (Auto) 8.9, Eos % (Auto) 0.1, Baso % (Auto) 0.2, Absolute Neuts (auto) 16.7 H, Absolute Lymphs (auto) 2.68, Nucleated RBC % 0, Differential Comment SCANNED 01/23/20 17:45: Sodium 134 L, Potassium 3.6, Chloride 96 L, Carbon Dioxide 30.0, Anion Gap 8, BUN 44 H, Creatinine 1.77 H, Estim Creat Clear Calc 31.54, Est GFR (MDRD) Af Amer 48 L, Est GFR (MDRD) Non-Af 40 L, BUN/Creatinine Ratio 24.9 H, Glucose 129 H, Calcium 9.2 01/23/20 19:50: Urine Color Yellow, Urine Clarity Sl. Cloudy, Urine pH 5.0, Ur Specific [place] 1.020, Urine Protein 100 H, Urine Glucose (UA) Normal, Urine Ketones Negative, Urine Occult Blood 50 H, Urine Nitrite Negative, Urine Bilirubin Negative, Urine Urobilinogen Normal, Ur Leukocyte Esterase 25 H, Urine RBC 0-5 SEEN, Urine WBC 0-5 SEEN, Ur Squamous Epith Cells 0-5 SEEN, Amorphous Sediment 1+ URATE, Urine Bacteria 0 SEEN, Hyaline Casts 0-5 SEEN, Fine Granular Casts 0-5 SEEN, Urine Mucus 0 SEEN 01/23/20 20:05: Lactic Acid 1.4 01/23/20 21:00: COVID-19 (ALEXANDRA) Cancelled 01/23/20 23:30: D-Dimer Quant (PE/DVT) 2.46 H* 01/24/20 03:50: WBC 19.0 H, RBC 3.91 L, Hgb 12.0 L, Hct 36.7 L, MCV 93.9, MCH 30.7, MCHC 32.7, RDW Std Deviation 46.2 H, RDW Coeff of Louis 13.6, Plt Count 247, MPV 9.9, Immature Gran % (Auto) 0.900, Neut % (Auto) 73.9 H, Lymph % (Auto) 13.2 L, [place] % (Auto) 11.2 H, Eos % (Auto) 0.4, Baso % (Auto) 0.4, Absolute Neuts (auto) 14.0 H, Absolute Lymphs (auto) 2.50, Nucleated RBC % 0, Differential Comment , Diff Path Review May foll, Platelet Estimate ADEQUATE, Polychromasia RARE, Hypochromasia 1+, Anisocytosis RARE 01/24/20 03:50: Sodium 136, Potassium 3.2 L, Chloride 97 L, Carbon Dioxide 29.0, Anion Gap 10, BUN 47 H, Creatinine 1.61 H, Estim Creat Clear Calc 34.67, Est GFR (MDRD) Af Amer 54 L, Est GFR (MDRD) Non-Af 44 L, BUN/Creatinine Ratio 29.2 H, Glucose 141 H, Calcium 8.4 L, Total Bilirubin 0.80, AST 35, ALT 29, Alkaline Phosphatase 75, Total Protein 7.0, Albumin 2.3 L, Globulin 4.7 H, Al bumin/Globulin Ratio 0.5 L Current Medications Acetaminophen (Tylenol) 500 mg PO Q4H PRN PRN PRN Reason: Pain or Fever Calcium Carbonate (Tums) 1,000 mg PO DAILY@0800 [facility] Dextrose (D50w Syringe) 0 gm IV X1 PRN; Protocol PRN Reason: Hypoglycemia Enoxaparin Sodium (Lovenox) 110 mg SC Q12@0600,1800 [facility] Last Admin: 01/24/20 05:25 Dose: 110 mg Documented by: Glucagon () 1 mg IM .X1 PRN PRN Reason: Hypoglycemia Cefepime HCl 1 gm/ Sodium (Chloride) 50 mls @ 100 mls/hr IV Q12 [facility] Vancomycin IV Pharmacy to Dose (1 ea/ Sodium Chloride) 500 mls @ 250 mls/hr IV X1 PRN; Protocol PRN Reason: Rx to Dose Sodium Chloride () 250 mls @ 15 mls/hr IV .[id number] PRN PRN Reason: Saline Flush Sodium Chloride () 250 mls @ 15 mls/hr IV .[id number] PRN PRN Reason: Additional IVPB Infusion Vancomycin HCl 750 mg/ Sodium (Chloride) 265 mls @ 250 mls/hr IV Q12H [facility] Metoprolol Succinate (Toprol Xl (Beta Qi)) 100 mg PO DAILY PASCUAL Multivitamins (Multivitamin) 1 tablet PO DAILY PASCUAL Ondansetron HCl (Zofran) 4 mg IV Q8H PRN PRN PRN Reason: NAUSEA/VOMITING Sodium Chloride () 10 - 40 ml IV UD PRN PRN Reason: SALINE FLUSH STROKE Vital Signs/Narrative: Vital Signs Temp Pulse Resp BP Pulse Ox 01/24/20 06:00 98 F 72 16 141/89 H 94 Medical Necessity - Tobacco Use Smoking Status: Former smoker Tobacco Use: Non-smoker Assessment/Plan All Active Problems Sepsis (Acute) LLOYD (acute kidney injury) (Acute) SIRS (systemic inflammatory response syndrome) (Acute) Lower extremity weakness (Acute) 79-year-old male with past medical history of cardiomyopathy/congenital heart disease, hypertension who had a fall on 01/19/20 from a height. Patient presented with fever and inability to move. 1. Fever, SIRS, unclear etiology, no source of infection COV ID?[id number] is negative, WBC appears improved Blood cultures are negative so far We will discontinue antibiotics We will monitor further 2. Paraplegia, status post fall recently MRI of the lumbar spine shows multilevel degenerative changes Patient still with significant weakness and numbness We will consult telemetry neurology for further recommendations 3. Elevated d-dimer, unclear etiology, Doppler ultrasound lower extremities is negative Unable to do CTA of the chest due to LLOYD VQ scan on 01/25/20 Tinea on therapeutic Lovenox 4. Acute kidney injury, likely prerenal, improved, Not on IV fluids at the moment on account of cardiomyopathy Off hydrochlorothiazide and lisinopril Repeat blood work in a.m. 5. Cardiomyopathy/congenital heart disease Continue on metoprolol and verapamil, Obtain 2D echo 6. DVT PPx- on therapeutic Lovenox Inpatient E&M: [id number] Subs Hosp L2
[2020-01-24] MEDS: Metoprolol(XL)Succ 100 MG Tablet PO (09:11)
[2020-01-24] MEDS: Multivitamins,Therapeutic Tablet 1 TABLET PO (09:11)
[2020-01-24] MEDS: Calcium Carbonate 500 MG Tablet 1000 MG PO (09:11)
--- NOTE | 2020-01-24 10:30 | CASEMGMT ---
CELESTE TURNER assessment: Phone interview with patient for initial transition planning/care coordination assessment. CELESTE TURNER introduced self and role at [facility], pt voices understanding and consents to assessment at this time. Pt is A/Ox4 at this time and answers questions appropriately at this time. Care providers, pharmacy, and demographics verified at this time. Presentation: Fever, bilat leg pain, work related injury to legs after fall Admitting dx: SIRS, LE weakness PCP: Paul Delvalle Specialists: Pt states no current specialists. Preferred Pharmacy: [facility] Insurance: OBW(fall injury), [facility] Prescription Benefit: Hum[employer] Living Will/HPOA: Pt states does not have LW/HPOA and pt declines AD info at this time. LNOK: Keiko Orozco, ; Alex Orozco II, son Living Arrangements: Pt states lives with in split level home with steps to go to all areas of home. Pt states is normally independent with ADL's but has not been able to get up on own since injury at the end of last week. Pt states son will come and carry him to bathroom for BM. Transportation: Pt states drives self and states no transportation concerns at this time. DME/HHC: Pt states has several canes and a HCP shower. Pt states no hx of HHC or SNF in the past. Pt unsure of plan for discharge at this time d/t unable to ambulate at this time. 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 Pt states does not smoke or drink ETOH. Pt states no further concerns/needs at this time. CM to follow for PT/OT evals and for any further discharge planning/needs. Advised pt to ask for CM if any further questions/concerns/needs arise, voices understanding. Pt Goal: Home Plan: Home [place] CELESTE TURNER
[2020-01-24 12:05] LABS: Pathologist Review Reviewed
--- NOTE | 2020-01-24 14:08 | CASEMGMT ---
GIRISH reviewed therapy notes and patient did not do well with therapy. SW also noted that he said he would go to [facility] if he had to go somewhere as his daughter works there. GIRISH spoke with patient, introduced self and role at [facility]. GIRISH asked if it would be okay if SW made the referral to [facility]. GIRISH explained that if he improves and does not need assisted he does not have to go, but it is better to have it set up and not need it rather than the opposite. He said that would be fine. GIRISH called Laura at [facility] and left her a voice mail as well as faxed referral. Patient was moved to Med Surg 3 so GIRISH updated MS 3 GIRISH, Lesley Joseph. Await return call from Laura. Keshia MANE SENIOR CLIMATE ADVISOR
--- NOTE | 2020-01-24 15:26 | CASEMGMT ---
GIRISH received a call from Laura at [facility]. She said they cannot take patient as they are not Worker's Comp certified. SW spoke with patient letting him know this information. SW let him know [facility] has a physician that is Worker's Comp certified or SW can do some research and see what other facilities might be an option. He said he was fine with [facility]. He does have the name and number of the Worker's Comp person he has been working with. At the time he was not able to give it to SW. GIRISH let MS 3 SW know that she will need to get this information from patient. GIRISH explained we will likely have to do a C9. Keshia MANE CANE PUSHER
--- NOTE | 2020-01-24 15:53 | MRI_ITS ---
STUDY: MRI CERVICAL SPINE WITH AND WITHOUT CONTRAST REASON FOR EXAM: Male, 79 years old. 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 COMPARISON: None FINDINGS: Normal foramen magnum and brainstem-cervical cord junction. Normal craniovertebral junction. Normal anterior atlantoaxial articulation. Normal odontoid process. Normal cervical lordosis. Normal vertebral bodies and posterior osseous elements. C2-3: Normal endplates. Normal disc height, signal and morphology. Normal central canal and intervertebral neural foramina. C3-4: Normal endplates. Normal disc height, signal and morphology. Normal central canal and intervertebral neural foramina. C4-5: Normal endplates. Normal disc height, signal and morphology. Normal central canal and intervertebral neural foramina. C5-6: Narrowed disc space and mild bulging disc osteophyte complex. Mild narrowing of the central canal. Severe bilateral neuroforaminal stenosis secondary to bony hypertrophy. C6-7: Normal endplates. Normal disc height, signal and morphology. Normal central canal and intervertebral neural foramina. C7-T1: Normal endplates. Normal disc height, signal and morphology. Normal central canal and intervertebral neural foramina. Normal cervical cord. No enhancing lesions following contrast administration Normal visualized soft tissue structures. MRI/Spine Cervical W/WO Contrast IMPRESSION: Spinal stenosis at C5-6 secondary to mild bulging disc osteophyte complex. No evidence for cord compression or focal cord lesion. Electronically Signed: Santosh Estevez MD at 20:27 EDT , Service support ,
--- NOTE | 2020-01-24 15:55 | MRI_ITS ---
STUDY: MRI THORACIC SPINE WITH AND WITHOUT CONTRAST REASON FOR EXAM: Male, 79 years old. 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 COMPARISON: None. FINDINGS: Normal kyphosis of the thoracic spine. There is no substantial scoliosis. The intervertebral disc space heights are well-maintained however there is mild multilevel endplate spurring. Tiny right posterolateral disc protrusion at T8-9 mildly narrowing the spinal canal and impinging upon the cord.. Normal visualized thoracic cord. Normal conus medullaris that terminates at T12-L1 The soft tissue structures are unremarkable. There is no enhancing abnormality. MRI/Spine Thoracic W/WO Contrast IMPRESSION: Mild spondylosis. Tiny right posterolateral disc protrusion at T8-9 mildly narrowing the spinal canal and impinging upon the cord. No evidence for acute fracture or other significant bony pathology. No evidence for cord lesion or epidural abscess Electronically Signed: Santosh Estevez MD at 20:32 EDT , Service support ,
--- NOTE | 2020-01-24 16:23 | CASEMGMT ---
Addendum entered by Mau Crump 01/24/20 16:52: CELESTE TURNER called [employer] and spoke with Keshia. She was made aware plans are to transfer pt to a tertiary care hospital and CELESTE TURNER inquired of where pt could go under Worker's Comp. She states, according to her records, Worker's Comp claim has not been started yet and she is awaiting a call from [employer]. She states the managed organization for Worker's Comp is [facility]. She advises for pt to be transferred to facility within network with pt's insurance [employer], in case hospitalization is not covered under Worker's Comp. Original Note: Insurance review for in-network facilities for [employer] PPO are as follows. CELESTE TURNER also called [employer] and spoke with commercial sales representative, Pauline, and she also confirmed these are in-network. [facility] ([facility]), [facility], [facility], [facility], and [facility]. Kane LYONSN CELESTE TURNER
[2020-01-24] MEDS: 0.9% Saline Lock 10 ML Syringe IV ×3 (17:47→19:24)
[2020-01-24] MEDS: 0.9% Normal Saline 1,000 ML 75 ML IV (17:49)
[2020-01-24] MEDS: LORazepam 2 MG/ML Syringe 1 MG IV (17:56)
[2020-01-24] MEDS: Morphine 2 MG/ML Syringe IV (19:24)
--- NOTE | 2020-01-24 21:58 | NURSING ---
Copies of thoracic & cervical MRI results faxed to [facility] per their request at [phone].
--- NOTE | 2020-01-24 23:45 | DS.PCM_ITS ---
Discharge Date and Diagnosis - Problem List Patient Problems: Active and Suspected Problems Sepsis (Acute) LLOYD (acute kidney injury) (Acute) SIRS (systemic inflammatory response syndrome) (Acute) Lower extremity weakness (Acute) Date of Admission: 01/23/20 Date of Discharge: 01/24/20 - Primary Discharge Diagnosis Active and Suspected Problems Sepsis (Acute) LLOYD (acute kidney injury) (Acute) SIRS (systemic inflammatory response syndrome) (Acute) Lower extremity weakness (Acute) - Secondary Discharge Diagnosis Chronic Problems Cardiomyopathy (Chronic) Congenital heart anomaly (Chronic) HTN (hypertension) (Chronic) Hospital Course and Treatment Imaging Results: 01/24/20 15:53 MRI Cervical [Spine Cervical W/WO Contrast] [MRI] Stat 01/24/20 15:55 MRI Thoracic [Spine Thoracic W/WO Contrast] [MRI] Stat Clinical Impression(s) from Imaging Studies Chest X-Ray 01/23/20 17:57 IMPRESSION: No acute thoracic pathology. Electronically Signed: Ever Ly at 18:07 EDT Tel , Service support , Venous Duplex 01/23/20 18:03 IMPRESSION: Normal venous Doppler ultrasound of the bilateral lower extremities. Electronically Signed: Ever Ly at 19:05 EDT Tel , Service support , Brain CT 01/23/20 21:58 IMPRESSION: No acute intracranial abnormality. Chronic ischemic and atrophic changes. Electronically Signed: Ever Ly at 22:59 EDT Tel , Service support , Lumbar Spine MRI 01/24/20 07:45 IMPRESSION: Multilevel degenerative changes, as described above. Electronically Signed: Jamey Marvin MD at 9:15 EDT Tel , Service support , Cervical Spine MRI 01/24/20 15:53 IMPRESSION: Spinal stenosis at C5-6 secondary to mild bulging disc osteophyte complex. No evidence for cord compression or focal cord lesion. Electronically Signed: Santosh Estevez MD at 20:27 EDT , Service support , Thoracic Spine MRI 01/24/20 15:55 IMPRESSION: Mild spondylosis. Tiny right posterolateral disc protrusion at T8-9 mildly narrowing the spinal canal and impinging upon the cord. No evidence for acute fracture or other significant bony pathology. No evidence for cord lesion or epidural abscess Electronically Signed: Santosh Estevez MD at 20:32 EDT , Service support , Operations: None Procedures: None Summary of Care Provided: The patient is a 79 year old M presents with fever. Patient was admitted underwent a infectious work-up, including COVID-19 testing and blood cultures. All of which are negative thus far. There is only been about 24 hours since blood cultures were drawn. Patient was placed placed on initial broad-spectrum antibiotics but were then subsequent discontinued. Patient is a complaint was just weakness. Patient sustained a weakness after a fall. The fall occurred on the eighth. He stated that he was at work and was on a loaders and then fell roughly 2 to [address] he fell as he landed on his ankles and then hit his head. Denied any loss of consciousness. Patient stated that he was weak ever since then. Stated he was evaluated by [facility], Worker's Comp. group, did some x-rays and told that nothing was broken. Patient was evaluated by the tele-neurologist service [facility], here recommended imaging of his back. Patient did have imaging that showed spinal stenosis of the lumbar spine as well as a herniated disc at T8-9. Repeat consultation with [facility], recommended transfer to a another facility where patient to be evaluated by neurology as well as surgical services including neurosurgery spine surgery. [facility] I spoke with the neurosurgeon who is more concerned about the patient's spinal stenosis in the lumbar region rather than the thoracic region. He stated he would see the patient in consultation but would want the patient further work-up in regards to potential infectious etiology. Spoke with Dr. Albarran, hospitalist at [facility], who agreed to accept the patient. [] Patient Problems: Active and Suspected Problems Sepsis (Acute) LLOYD (acute kidney injury) (Acute) SIRS (systemic inflammatory response syndrome) (Acute) Lower extremity weakness (Acute) - Physical Exam Vitals/I&O's: Vital Signs Temp Pulse Resp BP Pulse Ox 37.2 C 85 22 H 162/89 H 93 01/24/20 20:42 01/24/20 20:42 01/24/20 20:55 01/24/20 20:42 01/24/20 20:42 Oxygen Delivery Method Room Air Weight: 105.5 kg Body Mass Index (BMI) 37.5 Intake and Output for Last 24 Hours 01/22/20 01/23/20 01/24/20 23:59 23:59 23:59 Intake Total 327.5 / 327.5 2751.25 / 2751.25 Output Total 200 / 200 Balance 327.5 / 327.5 2551.25 / 2551.25 Microbiology Past 72 Hours 01/24/20 05:10 Mucosa - Nasopharyngeal Coronavirus COVID-19 PCR - Final 01/23/20 21:00 Mucosa - Nasopharyngeal Coronavirus COVID-19 PCR - Final Laboratory Results 01/23/20 23:30: D-Dimer Quant (PE/DVT) 2.46 H* 01/24/20 03:50: WBC 19.0 H, RBC 3.91 L, Hgb 12.0 L, Hct 36.7 L, MCV 93.9, MCH 30.7, MCHC 32.7, RDW Std Deviation 46.2 H, RDW Coeff of Louis 13.6, Plt Count 247, MPV 9.9, Immature Gran % (Auto) 0.900, Neut % (Auto) 73.9 H, Lymph % (Auto) 13.2 L, Sublette % (Auto) 11.2 H, Eos % (Auto) 0.4, Baso % (Auto) 0.4, Absolute Neuts (auto) 14.0 H, Absolute Lymphs (auto) 2.50, Nucleated RBC % 0, Differential Comment , Diff Path Review Reviewed, Platelet Estimate ADEQUATE, Polychromasia RARE, Hypochromasia 1+, Anisocytosis RARE 01/24/20 03:50: Sodium 136, Potassium 3.2 L, Chloride 97 L, Carbon Dioxide 29.0, Anion Gap 10, BUN 47 H, Creatinine 1.61 H, Estim Creat Clear Calc 34.67, Est GFR (MDRD) Af Amer 54 L, Est GFR (MDRD) Non-Af 44 L, BUN/Creatinine Ratio 29.2 H , Glucose 141 H, Calcium 8.4 L, Total Bilirubin 0.80, AST 35, ALT 29, Alkaline Phosphatase 75, Total Protein 7.0, Albumin 2.3 L, Globulin 4.7 H, Albumin/ Globulin Ratio 0.5 L Current Medications Acetaminophen (Tylenol) 500 mg PO Q4H PRN PRN PRN Reason: Pain or Fever Calcium Carbonate (Tums) 1,000 mg PO DAILY@0800 [facility] Last Admin: 01/24/20 09:11 Dose: 1,000 mg Documented by: Dextrose (D50w Syringe) 0 gm IV X1 PRN; Protocol PRN Reason: Hypoglycemia Enoxaparin Sodium (Lovenox) 110 mg SC Q12@0600,1800 [facility] Last Admin: 01/24/20 17:30 Dose: 110 mg Documented by: Glucagon () 1 mg IM .X1 PRN PRN Reason: Hypoglycemia Sodium Chloride () 250 mls @ 15 mls/hr IV .[id number] PRN PRN Reason: Saline Flush Sodium Chloride () 250 mls @ 15 mls/hr IV .[id number] PRN PRN Reason: Additional IVPB Infusion Sodium Chloride () 1,000 mls @ 75 mls/hr IV .[id number] [facility] Stop: 01/25/20 06:19 Last Infusion: 01/24/20 21:24 Dose: 75 mls/hr Documented by: Metoprolol Succinate (Toprol Xl (Beta Qi)) 100 mg PO DAILY [facility] Last Admin: 01/24/20 09:11 Dose: 100 mg Documented by: Multivitamins (Multivitamin) 1 tablet PO DAILY [facility] Last Admin: 01/24/20 09:11 Dose: 1 tablet Documented by: Ondansetron HCl (Zofran) 4 mg IV Q8H PRN PRN PRN Reason: NAUSEA/VOMITING Sodium Chloride () 10 - 40 ml IV UD PRN PRN Reason: SALINE FLUSH Last Admin: 01/24/20 19:24 Dose: 10 ml Documented by: Verapamil HCl (Calan Sr) 240 mg PO DAILY [facility] Home Medications: Medications to take at Discharge Acetaminophen [Tylenol Extra Strength] 500 mg PO Q4H PRN PRN 01/23/20 Calcium Carbonate [Tums] 1,000 mg PO DAILY@0800 01/23/20 Saab Extract 1,200 mg PO DAILY 01/23/20 Cider Vinegar [Apple Cider Vinegar] 300 mg PO BID 01/23/20 Hydrochlorothiazide [Hctz] 25 mg PO DAILY 01/23/20 Lisinopril [Zestril] 40 mg PO DAILY 01/23/20 Metoprolol Succinate [Toprol Xl] 100 mg PO DAILY 01/23/20 Multivitamins,Therapeutic [Multivitamin] 1 tab PO DAILY 01/23/20 Selenium 200 mcg PO DAILY 01/23/20 Verapamil HCl [Verapamil ER] 240 mg PO DAILY 01/23/20 Primary Care Physician: Charli Delvalle MD [Primary Care Provider] - Disposition: Acute care Hospital Minutes spent on discharge:: 40 Patient Condition:: Stable Medical Necessity - Tobacco Use Smoking Status: Former smoker Tobacco Use: Non-smoker Meaningful Use Info Meaningful Use Diagnoses (Choose all that apply): None applicable
[2020-01-25 00:25] VITALS: BP 150/62; PULSE 86; RESP 22; TEMP 37.4; O2SAT 93
[2020-01-25 02:30] VITALS: BP 150/62; PULSE 86; RESP 22; TEMP 37.4; O2SAT 93
--- NOTE | 2020-01-25 02:36 | NURSING ---
Squad here to transport pt to [facility].
== END 2020-01-25 02:43 | disposition short-term general hospital (02) | DRG 872 ==
LOC: ED 21:09 → ICU 21:50 → MS3 01-24 13:50
PROVIDERS: Emergency Provider Emergency Medicine; PCP Family Medicine; Visit Provider Internal Medicine
DX: A41.9 Sepsis, unspecified organism (principal); N17.9 Acute kidney failure, unspecified; I42.4 Endocardial fibroelastosis; G82.20 Paraplegia, unspecified; I11.9 Hypertensive heart disease without heart failure; Z87.891 Personal history of nicotine dependence; Z79.899 Other long term (current) drug therapy; E66.01 Morbid (severe) obesity due to excess calories; Z68.37 Body mass index [BMI] 37.0-37.9, adult; W01.0XXA Fall on same level from slipping, tripping and stumbling without subsequent striking against object, initial encounter; Y93.89 Activity, other specified; Y92.89 Other specified places as the place of occurrence of the external cause; Y99.0 Civilian activity done for income or pay; R79.1 Abnormal coagulation profile
CPT/HCPCS: 70450; 71045; 72148; 72156; 72157; 80048; 80053; 81001; 83605; 85025; 85379; 87040; 87081; 87635; 93970; 97162; 97167; 99285; A9575; G2023; J7030; J7040; J7050; P9612; Q9957; A4216; U0002

== ENCOUNTER 2020-02-01 13:30 | Inpatient (IN) | payer OTHER, MEDICARE, SELFPAY ==
[2020-01-23 22:05] VITALS: BMI 37.5
[2020-02-01 13:59] VITALS: BP 119/71; PULSE 64; RESP 18; TEMP 36.4; O2SAT 93
[2020-02-01 14:02] VITALS: BMI 34.4
[2020-02-01 14:20] VITALS: BMI 34.4
[2020-02-01 15:01] VITALS: PULSE 64; RESP 18; O2SAT 96
[2020-02-01] MEDS: Doxycycline 100 MG CAPSULE PO (18:15)
--- NOTE | 2020-02-01 22:16 | HP.PCM_ITS ---
Problem List (1) Debility Status: Acute (2) Fall Status: Acute (3) Fever Status: Acute (4) Lumbar spinal stenosis Status: Chronic (5) Bilateral leg weakness Status: Acute (6) Cardiomyopathy Status: Chronic Qualifiers: (7) LLOYD (acute kidney injury) Status: Acute (8) SIRS (systemic inflammatory response syndrome) Status: Acute (9) HTN (hypertension) Status: Chronic History of Present Illness Date of Admission: 02/01/20 Chief Complaint: Here for rehabilitation, strengthening, prior to discharge home with . 01/23/2020 The patient is a 79 year old Male with below past medical history presented to [facility] Emergency Department with fever. 01/23/2020 Chest X-ray negative. 01/23/2020 Doppler ultrasound bilateral lower extremity NEGATIVE. 01/23/2020 CT brain negative. Fever 101.5, Tylenol 5.5 hours ago. 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 Mild left rib pain. WBC 21.6, BUN 44, Cr 1.77, UA negative. Fever 99.9, Check COVID-19. Cefepime, Vancomycin given. 01/23/2020 Admit to Hospital. Cefepime, Vancomycin continued. Hold Lisinopril, Hold Hydrochlorothiazide, give IV Fluids for acute kidney injury. 01/24/2020 MRI cervical spine C5-6 spinal stenosis. 01/24/2020 MRI thoracic spine mild spondylosis. 01/24/2020 MRI lumbar spine multilevel degenerative changes. 01/24/2020 COVID-19 negative x 2. WBC improved, blood cultures negative to date. Stop antibiotics. Paraplegia status post fall. Elevated D-dimer, Doppler ultrasound bilateral lower extremity negative, CTA chest unable due to acute kidney injury. Acute kidney injury improved. 01/24/2020 Tele Neurology consult for bilateral lower extremity weakness. Consider lumbar puncture, consider nerve conduction study, consider EMG. Consider [facility] for in person Neurology exam. 01/24/2020 Transfer to [facility] to evaluate lumbar spinal stenosis, paraplegia. At [place], patient was evaluated for fever of unknown origin. Infectious Disease recommended Doxycycline for short course, organism unknown. He had bilateral knee effusions, under arthrocentesis, fluid showed gout crystals, treated with prednisone taper. Neurosurgery consulted for lumbar spinal stenosis, surgery was not recommended. 02/01/2020 Admit to TCU with debility, here for rehabilitation, strengthening, prior to discharge home with . Past Medical History Past Medical History (Chronic Problems): Chronic Problems Cardiomyopathy (Chronic) Congenital heart anomaly (Chronic) Lumbar spinal stenosis (Chronic) HTN (hypertension) (Chronic) Allergies acetaminophen [From [facility]] Allergy (Verified 01/23/20 23:03) PT UNSURE OF REACTION bacitracin [From Neosporin ([id number])] Allergy (Verified 01/23/20 23:03) PT UNSURE OF REACTION hydrocodone [From [facility]] Allergy (Verified 01/23/20 23:03) PT UNSURE OF REACTION neomycin [From Neosporin ([id number])] Allergy (Verified 01/23/20 23:03) PT UNSURE OF REACTION Penicillins [PCN] Allergy (Verified 01/23/20 17:13) Rash polymyxin B [From Neosporin ([id number])] Allergy (Verified 01/23/20 23:03) PT UNSURE OF REACTION sulfamethoxazole [From Bactrim] Allergy (Verified 02/01/20 14:15) PT UNSURE OF REACTION trimethoprim [From Bactrim] Allergy (Verified 02/01/20 14:15) PT UNSURE OF REACTION oxycodone Adverse Reaction (Verified 01/23/20 17:31) PT UNSURE OF REACTION Home Medications: Ambulatory Orders Medication Instructions Recorded Acetaminophen [Tylenol Extra 500 mg PO Q4H PRN PRN 01/23/20 Strength] Hydrochlorothiazide [Hctz] 25 mg PO DAILY 01/23/20 Lisinopril [Zestril] 40 mg PO DAILY 01/23/20 Metoprolol Succinate [Toprol Xl] 100 mg PO DAILY 01/23/20 Multivitamins,Therapeutic 1 tab PO DAILY 01/23/20 [Multivitamin] Selenium 200 mcg PO DAILY 01/23/20 Verapamil HCl [Verapamil ER] 240 mg PO DAILY 01/23/20 Doxycycline 100 mg PO BID 02/01/20 Furosemide [Lasix] 20 mg PO DAILY 02/01/20 Prednisone See Taper PO DAILY 02/01/20 Surgical History: noncontributory Psychiatric History: No pertinent psych hx Lives: Spouse/ Significant Other Smoking Status: Former smoker Tobacco Use: Non-smoker Alcohol: None Drugs: None - *Family History Maternal History Items: - - No heart disease Review of Systems Constitutional: Denies: Chills, Fever, Weight Change HEENT: Denies: Head Aches, Sinus Congestion, Sinus Drainage Cardiovascular: Denies: Chest Pain, Palpitations Respiratory: Denies: Cough, Shortness of breath at rest, Sputum production Gastrointestinal: Denies: Abdominal Pain, Nausea, Vomiting Genitourinary: Denies: Dysuria Musculoskeletal: Denies: Joint Pain, Joint Tenderness Skin: Denies: Rash, Wounds Neurological: Denies: Numbness, Tingling, Focal weakness Psychiatric: Denies: Anxiety, Depression, Homicidal Ideations, Suicidal Ideations Hematologic/ Lymphatic: Denies: Easy Bruising, Easy Bleeding VTE Information - Inpt Only VTE Present on Admission: No VTE Mechan Device Prophylaxis: Knee High NAZIA Hose VTE Pharm Prophylaxis ordered?: Yes Patient Problems: Active and Suspected Problems Debility (Acute) Fall (Acute) Fever (Acute) Bilateral leg weakness (Acute) - Physical Exam Vitals/I&O's: Vital Signs Temp Pulse Resp BP Pulse Ox 97.5 F L 64 18 119/71 96 02/01/20 13:59 02/01/20 15:01 02/01/20 15:01 02/01/20 13:59 02/01/20 15:01 Oxygen Delivery Method Room Air Weight: 96.627 kg Body Mass Index (BMI) 34.4 General: Alert, Oriented x3, Cooperative HEENT: Atraumatic, PERRLA, EOMI, Normocephalic Neck: Supple, No JVD, Negative Carotid Bruits Lungs: Clear to auscultation, Normal air movement Cardiovascular: Regular rate, No murmurs Abdomen: Bowel Sounds Present, Soft, Non Tender Extremities: No edema, Capillary Refill Less than 3 Seconds Skin: No rashes, No breakdown Musculoskeletal: No Tenderness to Palpation of Joints or Extremities Neurological: Cranial nerves II-XII grossly intact Psych/Mental Status: Normal Affect, Appropriate Current Medications Acetaminophen (Tylenol) 500 mg PO Q4H PRN PRN PRN Reason: Pain 1-10 or Fever Doxycycline Monohydrate (Doxycycline) 100 mg PO BID [facility] Stop: 02/15/20 18:01 Last Admin: 02/01/20 18:15 Dose: 100 mg Documented by: Furosemide (Lasix) 20 mg PO DAILY [facility] Hydrochlorothiazide (Hctz) 25 mg PO DAILY [facility] Lisinopril (Zestril) 40 mg PO DAILY [facility] Metoprolol Succinate (Toprol Xl (Beta Qi)) 100 mg PO DAILY [facility] Multivitamins (Multivitamin) 1 tablet PO DAILY@0800 [facility] Prednisone () 40 mg PO DAILY@0800 [facility]; Taper Stop: 02/14/20 07:59 Tuberculin PPD (Tubersol, Aplisol, Ppd) 5 tu ID X1 ONE Stop: 02/02/20 10:01 Tuberculin PPD (Tubersol, Aplisol, Ppd) 5 tu ID X1 ONE Stop: 02/09/20 10:01 Verapamil HCl (Calan Sr) 240 mg PO DAILY [facility] Assessment/Plan All Active Problems Sepsis (Acute) LLOYD (acute kidney injury) (Acute) SIRS (systemic inflammatory response syndrome) (Acute) Lower extremity weakness (Acute) Debility (Acute) Fall (Acute) Fever (Acute) Bilateral leg weakness (Acute) 79 year old male with below past medical history hospitalized, ruled out for sepsis, complicated by lumbar spinal stenosis, bilateral lower extremity weakness, admitted to TCU with debility, here for rehabilitation, strengthening, prior to discharge home with . * Debility - PT/OT. * Pain - Tylenol 500MG Q4H PRN pain (1-10). * Bowel - Miralax 17GM daily, Senna/colace 1 tablet BID, Dulcolax 10MG daily PRN. * Adult immunization - Administer Prevnar 13, Pneumovax 23, Fluzone as appropriate. * DVT prophylaxis - Lovenox 40MG SC daily. * Infectious Disease - Doxycycline 100MG BID thru 02/15/2020. * Cardiomyopathy - Metoprolol succinate 100MG daily, Lisinopril 40MG daily, Lasix 20MG daily. * Hypertension - Metoprolol succinate 100MG daily, Verapamil 240MG daily, Lisinopril 40MG daily, HCTZ 25MG daily. * Nutrition - MVI daily. * Lumbar spinal stenosis - No surgical intervention necessary. * Gout of knee - Finish prednisone taper.
[2020-02-02 05:35] VITALS: BP 121/76; PULSE 72
[2020-02-02] MEDS: Verapamil SR 240 MG Tablet PO (05:35)
[2020-02-02] MEDS: Polyethylene Glycol 3350 17 GM PACKET PO (05:35)
[2020-02-02] MEDS: Furosemide 20 MG Tablet PO (05:35)
[2020-02-02] MEDS: Lisinopril 40 MG Tablet PO (05:35)
[2020-02-02] MEDS: Senna/Docusate Sodium 1 Tablet PO (05:35)
[2020-02-02] MEDS: Metoprolol(XL)Succ 100 MG Tablet PO (05:35)
[2020-02-02] MEDS: Doxycycline 100 MG CAPSULE PO ×2 (05:35→17:02)
[2020-02-02] MEDS: hydroCHLOROthiazide 25 MG Tablet PO (05:35)
[2020-02-02 06:22] LABS: Hematocrit 39.6 % (40-54); Hemoglobin 12.6 g/dL (13.0-16.5); Mean Corp Hgb Conc 31.8 g/dL (32-36); Mean Corpuscular Volume 94.3 fL (80-94); Mean Platelet Vol. 9.4 fl (6.2-12.0); POSITIVE COUNT YES; POSITIVE DIFFERENTIAL YES; POSITIVE MORPHOLOGY YES; Platelet Count 622 K/mm3 (150-450); RBC Distribution Width CV 14.1 % (11.6-14.6); RBC Distribution Width SD 48.2 fl (35.1-43.9); White Blood Count 28.1 K/mm3 (4.4-11.0)
[2020-02-02 06:30] LABS: Differential Indicated MANUAL DIFF
[2020-02-02 06:45] LABS: Anion Gap 7 (5-15); BUN 66 mg/dL (7-18); BUN/Creat Ratio 42.9 RATIO (10-20); Calcium,Total 8.8 mg/dL (8.5-10.1); Chloride 103 mmol/L (98-107); Creatinine, Serum 1.54 mg/dL (0.70-1.30); EST Glomerular Filtration Rate 47 mL/min (>60); Est Glom Filt Rate - Afr Amer 57 mL/min (>60); Estimated Creatinine Clearance 36.25 ml/min; Glucose 119 mg/dL (74-106); Potassium 4.2 mmol/L (3.5-5.1); Sodium Level 140 mmol/L (136-145)
[2020-02-02 06:56] LABS: Total Cells Counted 100 (MANUAL DIFF)
[2020-02-02 06:57] LABS: Absolute Neutrophil Count 22.5 X10^3/uL (2.0-7.7); Eosinophil 1 % (0-5); Lymphocyte 10 % (19-41); Monocyte 9 % (0-10); Neutrophil # 22.46 X10^3/uL (2.7-7.7); Neutrophil-Band 1 % (0-5); Neutrophil-Segmented 79 % (47-70)
[2020-02-02 06:58] LABS: Monocyte# 2.53 X10^3/uL
[2020-02-02] MEDS: Multivitamins,Therapeutic Tablet 1 TABLET PO (08:06)
[2020-02-02] MEDS: predniSONE 10 MG Tablet 20 MG PO (08:06)
[2020-02-02] MEDS: Tuberculin,Purif.prot.deriv. 50 TU/ML Vial 5 ML ID (09:57)
--- NOTE | 2020-02-02 10:28 | PHA.CONS_ITS ---
<Rachell Renteria - Last Filed: 02/02/20 10:28> Progress Note - Pharmacy Subjective: TCU Admission Objective: Allergies acetaminophen [From [facility]] Allergy (Verified 01/23/20 23:03) PT UNSURE OF REACTION bacitracin [From Neosporin ([id number])] Allergy (Verified 01/23/20 23:03) PT UNSURE OF REACTION hydrocodone [From [facility]] Allergy (Verified 01/23/20 23:03) PT UNSURE OF REACTION neomycin [From Neosporin ([id number])] Allergy (Verified 01/23/20 23:03) PT UNSURE OF REACTION Penicillins [PCN] Allergy (Verified 01/23/20 17:13) Rash polymyxin B [From Neosporin ([id number])] Allergy (Verified 01/23/20 23:03) PT UNSURE OF REACTION sulfamethoxazole [From Bactrim] Allergy (Verified 02/01/20 14:15) PT UNSURE OF REACTION trimethoprim [From Bactrim] Allergy (Verified 02/01/20 14:15) PT UNSURE OF REACTION oxycodone Adverse Reaction (Verified 01/23/20 17:31) PT UNSURE OF REACTION Current Medications Generic Name Dose Route Start Last Admin Trade Name Freq PRN Reason Stop Dose Admin Acetaminophen 500 mg 02/01/20 14:05 Tylenol PO Q4H PRN PRN Pain 1-10 or Fever Bisacodyl 10 mg 02/01/20 22:36 Dulcolax PO DAILY PRN PRN Constipation Doxycycline Monohydrate 100 mg 02/01/20 18:00 02/02/20 05:35 Doxycycline PO 02/15/20 18:01 100 mg BID [facility] Administration Enoxaparin Sodium 40 mg 02/03/20 06:00 Lovenox SC DAILY@0600 [facility] Furosemide 20 mg 02/02/20 06:00 02/02/20 05:35 Lasix PO 20 mg DAILY [facility] Administration Hydrochlorothiazide 25 mg 02/02/20 06:00 02/02/20 05:35 Hctz PO 25 mg DAILY [facility] Administration Lisinopril 40 mg 02/02/20 06:00 02/02/20 05:35 Zestril PO 40 mg DAILY [facility] Administration Metoprolol Succinate 100 mg 02/02/20 06:00 02/02/20 05:35 Toprol Xl (Beta Qi) PO 100 mg DAILY [facility] Administration Multivitamins 1 tablet 02/02/20 08:00 02/02/20 08:06 Multivitamin PO 1 tablet DAILY@0800 [facility] Administration Polyethylene Glycol 17 gm 02/02/20 06:00 02/02/20 05:35 Miralax PO 17 gm DAILY [facility] Administration Prednisone 40 mg 02/02/20 08:00 02/02/20 08:06 PO 02/14/20 07:59 40 mg DAILY@0800 [facility] Administration Taper Senna/Docusate Sodium 1 tablet 02/02/20 06:00 02/02/20 05:35 Senokot-S, Meryl-Colace PO 1 tablet BID [facility]AL Administration Tuberculin PPD 5 tu 02/09/20 10:00 Tubersol, Aplisol, Ppd ID 02/09/20 10:01 X1 ONE Verapamil HCl 240 mg 02/02/20 06:00 02/02/20 05:35 Calan Sr PO 240 mg DAILY [facility]AL Administration Problem List Debility (Acute) Fall (Acute) Fever (Acute) Lumbar spinal stenosis (Chronic) Bilateral leg weakness (Acute) Vital Signs Temp Pulse Resp BP Pulse Ox 97.5 F L 72 18 121/76 H 96 02/01/20 13:59 02/02/20 05:35 02/01/20 15:01 02/02/20 05:35 02/01/20 15:01 Oxygen Delivery Method Room Air Weight: 96.627 kg Body Mass Index (BMI) 34.4 Sodium 140 mmol/L (136-145) 02/02/20 05:34 Potassium 4.2 mmol/L (3.5-5.1) 02/02/20 05:34 Chloride 103 mmol/L (98-107) 02/02/20 05:34 Carbon Dioxide 30.0 mmol/L (21.0-32.0) 02/02/20 05:34 Anion Gap 7 (5-15) 02/02/20 05:34 BUN 66 mg/dL (7-18) H 02/02/20 05:34 Creatinine 1.54 mg/dL (0.70-1.30) H 02/02/20 05:34 Est GFR (MDRD) Af Amer 57 mL/min (>60) L 02/02/20 05:34 Est GFR (MDRD) Non-Af 47 mL/min (>60) L 02/02/20 05:34 BUN/Creatinine Ratio 42.9 RATIO (10-20) H 02/02/20 05:34 Glucose 119 mg/dL (74-106) H 02/02/20 05:34 Assessment/Plan: 1. Pain: acetaminophen 500mg PO Q4H PRN pain 1-10/10 or fever. Please continue to monitor for increased pain and PRN usage. 2. DVT prophylaxis: enoxaparin 40mg SC daily. Please continue to monitor renal function, platelets, and for S/S of bleeding/DVT. 3. Infectious disease: doxycycline 100mg PO BID thru 02/15/20. Please continue to monitor for S/S of infection, diarrhea, and rash. 4. Cardiomyopathy/hypertension: metoprolol succinate 100mg PO daily, lisinopril 40mg PO daily, hydrochlorothiazide 25mg PO daily, furosemide 20mg PO daily, verapamil 240mg PO daily. Please continue to monitor BP (last 121/76 mmHg), HR (last 72 bpm), potassium and renal function. 5. Gout of knee: prednisone taper (40mg PO DAILYCM x 3 days, then 30mg x 3 days, then 20mg x 3 days, then 10mg x 3 days) thru 02/13/20. Please continue to monitor for pain, WBC, blood sugars, and swelling. 6. Nutrition: multivitamin 1T PO DAILYCM. Please continue to monitor. Psychotropic Medications: None Unnecessary Medications: None Bowel Regimen: Miralax 17gm PO daily, senna/docusate 1T PO BID and bisacodyl 10mg PO daily PRN constipation. Please continue to monitor for constipation/d iarrhea and PRN usage. Date of Note:: 02/02/20 - Provider Comments Provider responsibility: Provider responsible to enter orders to implement recommendations <Brandon Rodriguez Chi - Last Filed: 02/02/20 13:56> Progress Note - Pharmacy Subjective: [] Objective: Allergies acetaminophen [From [facility]] Allergy (Verified 01/23/20 23:03) PT UNSURE OF REACTION bacitracin [From Neosporin ([id number])] Allergy (Verified 01/23/20 23:03) PT UNSURE OF REACTION hydrocodone [From [facility]] Allergy (Verified 01/23/20 23:03) PT UNSURE OF REACTION neomycin [From Neosporin ([id number]-[id number])] Allergy (Verified 01/23/20 23:03) PT UNSURE OF REACTION Penicillins [PCN] Allergy (Verified 01/23/20 17:13) Rash polymyxin B [From Neosporin ([id number]-[id number])] Allergy (Verified 01/23/20 23:03) PT UNSURE OF REACTION sulfamethoxazole [From Bactrim] Allergy (Verified 02/01/20 14:15) PT UNSURE OF REACTION trimethoprim [From Bactrim] Allergy (Verified 02/01/20 14:15) PT UNSURE OF REACTION oxycodone Adverse Reaction (Verified 01/23/20 17:31) PT UNSURE OF REACTION Current Medications Generic Name Dose Route Start Last Admin Trade Name Freq PRN Reason Stop Dose Admin Acetaminophen 500 mg 02/01/20 14:05 Tylenol PO Q4H PRN PRN Pain 1-10 or Fever Bisacodyl 10 mg 02/01/20 22:36 Dulcolax PO DAILY PRN PRN Constipation Doxycycline Monohydrate 100 mg 02/01/20 18:00 02/02/20 05:35 Doxycycline PO 02/15/20 18:01 100 mg BID [facility] Administration Enoxaparin Sodium 40 mg 02/03/20 06:00 Lovenox SC DAILY@0600 [facility] Furosemide 20 mg 02/02/20 06:00 02/02/20 05:35 Lasix PO 20 mg DAILY [facility] Administration Hydrochlorothiazide 25 mg 02/02/20 06:00 02/02/20 05:35 Hctz PO 25 mg DAILY [facility] Administration Lisinopril 40 mg 02/02/20 06:00 02/02/20 05:35 Zestril PO 40 mg DAILY PAS[facility]AL Administration Metoprolol Succinate 100 mg 02/02/20 06:00 02/02/20 05:35 Toprol Xl (Beta Qi) PO 100 mg DAILY [facility] Administration Multivitamins 1 tablet 02/02/20 08:00 02/02/20 08:06 Multivitamin PO 1 tablet DAILY@0800 [facility] Administration Polyethylene Glycol 17 gm 02/02/20 06:00 02/02/20 05:35 Miralax PO 17 gm DAILY [facility] Administration Prednisone 40 mg 02/02/20 08:00 02/02/20 08:06 PO 02/14/20 07:59 40 mg DAILY@0800 [facility]AL Administration Taper Senna/Docusate Sodium 1 tablet 02/02/20 06:00 02/02/20 05:35 Senokot-S, Meryl-Colace PO 1 tablet BID [facility] Administration Tuberculin PPD 5 tu 02/09/20 10:00 Tubersol, Aplisol, Ppd ID 02/09/20 10:01 X1 ONE Verapamil HCl 240 mg 02/02/20 06:00 02/02/20 05:35 Calan Sr PO 240 mg DAILY [facility]AL Administration Problem List Debility (Acute) Fall (Acute) Fever (Acute) Lumbar spinal stenosis (Chronic) Bilateral leg weakness (Acute) Vital Signs Temp Pulse Resp BP Pulse Ox 97.5 F L 72 18 121/76 H 96 02/01/20 13:59 02/02/20 05:35 02/01/20 15:01 02/02/20 05:35 02/01/20 15:01 Oxygen Delivery Method Room Air Weight: 96.627 kg Body Mass Index (BMI) 34.4 Sodium 140 mmol/L (136-145) 02/02/20 05:34 Potassium 4.2 mmol/L (3.5-5.1) 02/02/20 05:34 Chloride 103 mmol/L (98-107) 02/02/20 05:34 Carbon Dioxide 30.0 mmol/L (21.0-32.0) 02/02/20 05:34 Anion Gap 7 (5-15) 02/02/20 05:34 BUN 66 mg/dL (7-18) H 02/02/20 05:34 Creatinine 1.54 mg/dL (0.70-1.30) H 02/02/20 05:34 Est GFR (MDRD) Af Amer 57 mL/min (>60) L 02/02/20 05:34 Est GFR (MDRD) Non-Af 47 mL/min (>60) L 02/02/20 05:34 BUN/Creatinine Ratio 42.9 RATIO (10-20) H 02/02/20 05:34 Glucose 119 mg/dL (74-106) H 02/02/20 05:34 Assessment/Plan: Psychotropic Medications: Unnecessary Medications: Bowel Regimen: - Provider Comments Provider responsibility: Provider responsible to enter orders to implement recommendations Provider Comments to Recommendations by Pharmacy: Agree
[2020-02-02 12:20] LABS: Pathologist Review Reviewed
--- NOTE | 2020-02-02 12:54 | CASEMGMT ---
Social Work Discussed code status with pt. Pt confirmed full code. MOLST form completed and placed in chart. Erum Stevens MSW LPN CMA
[2020-02-02 14:18] VITALS: PULSE 72; RESP 18; O2SAT 96
[2020-02-02 15:03] VITALS: BP 136/74; PULSE 76; RESP 18; TEMP 35.9; O2SAT 95
[2020-02-03 06:02] VITALS: BP 134/87; PULSE 68; RESP 18; TEMP 36.1; O2SAT 95
[2020-02-03 06:05] VITALS: PULSE 66
[2020-02-03] MEDS: Lisinopril 40 MG Tablet PO (06:05)
[2020-02-03] MEDS: Furosemide 20 MG Tablet PO (06:05)
[2020-02-03] MEDS: Doxycycline 100 MG CAPSULE PO ×2 (06:05→17:29)
[2020-02-03] MEDS: Metoprolol(XL)Succ 100 MG Tablet PO (06:05)
[2020-02-03] MEDS: Verapamil SR 240 MG Tablet PO (06:05)
[2020-02-03] MEDS: hydroCHLOROthiazide 25 MG Tablet PO (06:05)
[2020-02-03] MEDS: Enoxaparin 40 MG/0.4 ML Syringe SC (06:06)
[2020-02-03] MEDS: predniSONE 10 MG Tablet 20 MG PO (08:52)
[2020-02-03] MEDS: Multivitamins,Therapeutic Tablet 1 TABLET PO (08:52)
[2020-02-03 14:03] VITALS: BP 122/77; PULSE 70; RESP 18; TEMP 35.9; O2SAT 96
[2020-02-04 04:00] VITALS: BP 161/100; PULSE 74; RESP 20; TEMP 36.3; O2SAT 95
[2020-02-04 05:40] VITALS: BP 161/100; PULSE 74
[2020-02-04] MEDS: Metoprolol(XL)Succ 100 MG Tablet PO (05:40)
[2020-02-04] MEDS: Verapamil SR 240 MG Tablet PO (05:40)
[2020-02-04] MEDS: Furosemide 20 MG Tablet PO (05:40)
[2020-02-04] MEDS: Doxycycline 100 MG CAPSULE PO ×2 (05:41→17:38)
[2020-02-04] MEDS: Senna/Docusate Sodium 1 Tablet PO (05:41)
[2020-02-04] MEDS: Enoxaparin 40 MG/0.4 ML Syringe SC (05:41)
[2020-02-04] MEDS: Polyethylene Glycol 3350 17 GM PACKET PO (05:42)
[2020-02-04] MEDS: Lisinopril 40 MG Tablet PO (05:45)
[2020-02-04] MEDS: hydroCHLOROthiazide 25 MG Tablet PO (05:47)
[2020-02-04] MEDS: Multivitamins,Therapeutic Tablet 1 TABLET PO (07:51)
[2020-02-04] MEDS: predniSONE 10 MG Tablet 20 MG PO (07:51)
[2020-02-04 15:07] VITALS: BP 144/72; PULSE 67; RESP 16; TEMP 36.4; O2SAT 96
[2020-02-05 04:00] VITALS: BP 130/82; PULSE 62; RESP 16; O2SAT 97
[2020-02-05 05:08] VITALS: BP 130/82; PULSE 62
[2020-02-05] MEDS: hydroCHLOROthiazide 25 MG Tablet PO (05:08)
[2020-02-05] MEDS: Metoprolol(XL)Succ 100 MG Tablet PO (05:08)
[2020-02-05] MEDS: Verapamil SR 240 MG Tablet PO (05:08)
[2020-02-05] MEDS: Lisinopril 40 MG Tablet PO (05:08)
[2020-02-05] MEDS: Furosemide 20 MG Tablet PO (05:08)
[2020-02-05] MEDS: Doxycycline 100 MG CAPSULE PO ×2 (05:08→17:00)
[2020-02-05] MEDS: Enoxaparin 40 MG/0.4 ML Syringe SC (05:09)
[2020-02-05] MEDS: predniSONE 10 MG Tablet 20 MG PO (07:54)
[2020-02-05] MEDS: Multivitamins,Therapeutic Tablet 1 TABLET PO (07:54)
--- NOTE | 2020-02-05 12:13 | NURSING ---
Pt states he speaks to daily on his cell phone
[2020-02-05 15:04] VITALS: BP 132/63; PULSE 68; RESP 14; TEMP 36.4; O2SAT 96
[2020-02-05] MEDS: Nystatin Powder 15gm Bottle 1 APPLIC TOPICAL (21:29)
[2020-02-06 04:17] VITALS: BP 141/81; PULSE 78; RESP 20; TEMP 36.4; O2SAT 95
[2020-02-06 04:18] VITALS: BP 141/81; PULSE 78
[2020-02-06] MEDS: Metoprolol(XL)Succ 100 MG Tablet PO (04:18)
[2020-02-06] MEDS: Doxycycline 100 MG CAPSULE PO ×2 (04:19→17:49)
[2020-02-06] MEDS: hydroCHLOROthiazide 25 MG Tablet PO (04:19)
[2020-02-06] MEDS: Furosemide 20 MG Tablet PO (04:19)
[2020-02-06] MEDS: Lisinopril 40 MG Tablet PO (04:19)
[2020-02-06] MEDS: Enoxaparin 40 MG/0.4 ML Syringe SC (04:19)
[2020-02-06] MEDS: Verapamil SR 240 MG Tablet PO (04:19)
[2020-02-06] MEDS: Nystatin Powder 15gm Bottle 1 APPLIC TOPICAL ×2 (04:22→20:16)
[2020-02-06] MEDS: Multivitamins,Therapeutic Tablet 1 TABLET PO (08:12)
[2020-02-06] MEDS: predniSONE 10 MG Tablet 20 MG PO (08:12)
[2020-02-06 10:00] VITALS: RESP 18
[2020-02-06 16:00] VITALS: BP 113/66; PULSE 67; RESP 16; TEMP 36.3; O2SAT 95
[2020-02-07 04:43] VITALS: BP 147/84; PULSE 75; RESP 16; TEMP 36.6; O2SAT 97
[2020-02-07] MEDS: Verapamil SR 240 MG Tablet PO (04:47)
[2020-02-07 04:48] VITALS: PULSE 75
[2020-02-07] MEDS: Doxycycline 100 MG CAPSULE PO ×2 (04:48→17:01)
[2020-02-07] MEDS: Nystatin Powder 15gm Bottle 1 APPLIC TOPICAL ×2 (04:48→17:01)
[2020-02-07] MEDS: Enoxaparin 40 MG/0.4 ML Syringe SC (04:48)
[2020-02-07] MEDS: hydroCHLOROthiazide 25 MG Tablet PO (04:48)
[2020-02-07] MEDS: Metoprolol(XL)Succ 100 MG Tablet PO (04:48)
[2020-02-07] MEDS: Furosemide 20 MG Tablet PO (04:48)
[2020-02-07] MEDS: Lisinopril 40 MG Tablet PO (04:49)
[2020-02-07] MEDS: predniSONE 10 MG Tablet 20 MG PO (09:38)
[2020-02-07] MEDS: Multivitamins,Therapeutic Tablet 1 TABLET PO (09:38)
[2020-02-07 10:41] VITALS: BP 107/56; PULSE 61; RESP 16; TEMP 36.4; O2SAT 92
--- NOTE | 2020-02-07 12:12 | CASEMGMT ---
Social Work IDT met with patient and via conference call for care plan meeting. Discussed patient's progress in therapy. Pt is CGA with FWW for transfers and ambulating 275 ft. Pt is supervised for grooming, UE ADLS, toileting. Pt is min assist for bathing, mod for LE ADLs and tub transfers. Pt can stand for about 6 minutes at a time. states she can assist with those things at home. Pt completed a flight of steps CGA. Pt enjoys Sudoku, received puzzles to do in room, and will continue with 1:1 visits with Activities. Pt is on cardiac diet, intake is 75-100%. Explained [employer] insurance and provided plan of care with [facility] 02/11 and estimated DC date 02/14. Pt requesting to DC home 02/08 with . IDT agreeable. No HHC or DME needs. Plan: DC home with 02/08 with no HHC or DME needs. LUL PowellW
--- NOTE | 2020-02-07 13:28 | CASEMGMT ---
BIMS and PHQ-9 assessment completed on this day. Josh Burnett MSW, ALHAJI
[2020-02-07 18:17] VITALS: BP 118/72; PULSE 73; RESP 14; TEMP 36.7; O2SAT 98
[2020-02-07 18:18] VITALS: PULSE 73; RESP 14
[2020-02-08 04:00] VITALS: BP 136/75; PULSE 65; RESP 18; TEMP 36.5; O2SAT 95
[2020-02-08 05:20] VITALS: BP 136/75; PULSE 65
[2020-02-08] MEDS: Lisinopril 40 MG Tablet PO (05:20)
[2020-02-08] MEDS: Verapamil SR 240 MG Tablet PO (05:20)
[2020-02-08] MEDS: Doxycycline 100 MG CAPSULE PO ×2 (05:20→16:59)
[2020-02-08] MEDS: Furosemide 20 MG Tablet PO (05:20)
[2020-02-08] MEDS: hydroCHLOROthiazide 25 MG Tablet PO (05:20)
[2020-02-08] MEDS: Metoprolol(XL)Succ 100 MG Tablet PO (05:20)
[2020-02-08] MEDS: Enoxaparin 40 MG/0.4 ML Syringe SC (05:20)
[2020-02-08] MEDS: Nystatin Powder 15gm Bottle 1 APPLIC TOPICAL ×2 (05:23→20:31)
[2020-02-08] MEDS: Multivitamins,Therapeutic Tablet 1 TABLET PO (07:45)
[2020-02-08] MEDS: predniSONE 10 MG Tablet 20 MG PO (07:45)
--- NOTE | 2020-02-08 08:13 | DCINST_ITS ---
- Discharge Diagnoses Current Active Problems: Current Active and Chronic Problems Debility (Acute) Fall (Acute) Fever (Acute) Lumbar spinal stenosis (Chronic) Bilateral leg weakness (Acute) You will use the following diet at home:: No restrictions, Regular Your food should be the consistency of: Regular Your liquids should be the consistency of: Regular/Thin Discharge Activity: Return to Normal Activity, May Shower, Use Walker May resume sexual activity in: No Restrictions Weight Bearing Status: Weight bearing as tolerated Call your doctor if you observe: Fever of 101 or Higher, Inability to urinate, Inability to have a bowel movement, Shortness of breath, Chest pain, Uncontrolled pain Allergies/Adverse Reactions: Allergies acetaminophen [From [place]] Allergy (Verified 01/23/20 23:03) PT UNSURE OF REACTION bacitracin [From Neosporin ([id number])] Allergy (Verified 01/23/20 23:03) PT UNSURE OF REACTION hydrocodone [From [place]] Allergy (Verified 01/23/20 23:03) PT UNSURE OF REACTION neomycin [From Neosporin (qgn-lck-dvnen)] Allergy (Verified 01/23/20 23:03) PT UNSURE OF REACTION Penicillins [PCN] Allergy (Verified 01/23/20 17:13) Rash polymyxin B [From Neosporin (das-apo-jzhvx)] Allergy (Verified 01/23/20 23:03) PT UNSURE OF REACTION sulfamethoxazole [From Bactrim] Allergy (Verified 02/01/20 14:15) PT UNSURE OF REACTION trimethoprim [From Bactrim] Allergy (Verified 02/01/20 14:15) PT UNSURE OF REACTION oxycodone Adverse Reaction (Verified 01/23/20 17:31) PT UNSURE OF REACTION Medications to take at Discharge Acetaminophen [Tylenol] 500 mg PO Q4H PRN PRN 01/23/20 Hydrochlorothiazide [Hctz] 25 mg PO DAILY 01/23/20 Lisinopril [Zestril] 40 mg PO DAILY 01/23/20 Metoprolol Succinate [Toprol Xl] 100 mg PO DAILY 01/23/20 Multivitamins,Therapeutic [Multivitamin] 1 tab PO DAILY 01/23/20 Selenium 200 mcg PO DAILY 01/23/20 Verapamil HCl [Verapamil ER] 240 mg PO DAILY 01/23/20 Doxycycline 100 mg PO BID #10 cap 02/08/20 Furosemide [Lasix] 20 mg PO DAILY #30 tab 02/08/20 Nystatin Powder [Mycostatin Powder] 1 applic TOPICAL BID bottle 02/08/20 The following prescriptions were given: Doxycycline 100 mg PO BID #10 cap Transmission Status: Pending to [id number] Furosemide [Lasix] 20 mg PO DAILY #30 tab Transmission Status: Pending to [id number] Primary Care Physician: Charli Delvalle MD [Primary Care Provider] - Please follow up with your Primary Care Physician in: 1 week. Test Results: Test results from this visit will be discussed in further detail at your follow- up appointment, if applicable. Please Follow Up With: Sonny Thakkar ([place] [facility]) When: [phone] Please Follow Up With: SAWYER Szymanski Ba, MD When: f/u 1 week Proposed Discharge Date: 02/09/20
--- NOTE | 2020-02-08 08:15 | DS.PCM_ITS ---
Discharge Date and Diagnosis - Problem List Patient Problems: Active and Suspected Problems Debility (Acute) Fall (Acute) Fever (Acute) Bilateral leg weakness (Acute) Date of Admission: 02/01/20 Date of Discharge: 02/09/20 - Primary Discharge Diagnosis Acute Problems: Active Problems Debility (Acute) Fall (Acute) Fever (Acute) Bilateral leg weakness (Acute) - Secondary Discharge Diagnosis Chronic Problems: Chronic Problems Cardiomyopathy (Chronic) Congenital heart anomaly (Chronic) Lumbar spinal stenosis (Chronic) HTN (hypertension) (Chronic) Hospital Course and Treatment Imaging Results: 02/02/20 09:20 Diet: Cardiac/Low Cholesterol Food consistency:: Regular Liquid Consistency:: Regular/Thin Is pt able to select menu?: Yes Operations: None Procedures: None Summary of Care Provided: The patient is a 79 year old Male with below past medical history hospitalized, ruled out for sepsis, complicated by lumbar spinal stenosis, bilateral lower extremity weakness, admitted to TCU with debility, here for rehabilitation, stre ngthening, prior to discharge home with . Discharge home with . Patient Problems: Active and Suspected Problems Debility (Acute) Fall (Acute) Fever (Acute) Bilateral leg weakness (Acute) - Physical Exam Vitals/I&O's: Vital Signs Temp Pulse Resp BP Pulse Ox 97.7 F L 65 18 136/75 H 95 02/08/20 04:00 02/08/20 05:20 02/08/20 04:00 02/08/20 05:20 02/08/20 04:00 Oxygen Delivery Method Room Air Weight: 96.661 kg Body Mass Index (BMI) 34.4 Intake and Output for Last 24 Hours 02/06/20 02/07/20 02/08/20 23:59 23:59 23:59 Intake Total 720 / 720 960 / 960 Balance 720 / 720 960 / 960 Current Medications Acetaminophen (Tylenol) 500 mg PO Q4H PRN PRN PRN Reason: Pain 1-10 or Fever Bisacodyl (Dulcolax) 10 mg PO DAILY PRN PRN PRN Reason: Constipation Doxycycline Monohydrate (Doxycycline) 100 mg PO BID [facility] Stop: 02/15/20 18:01 Last Admin: 02/08/20 05:20 Dose: 100 mg Documented by: Enoxaparin Sodium (Lovenox) 40 mg SC DAILY@0600 [facility] Last Admin: 02/08/20 05:20 Dose: 40 mg Documented by: Furosemide (Lasix) 20 mg PO DAILY [facility] Last Admin: 02/08/20 05:20 Dose: 20 mg Documented by: Hydrochlorothiazide (Hctz) 25 mg PO DAILY [facility] Last Admin: 02/08/20 05:20 Dose: 25 mg Documented by: Lisinopril (Zestril) 40 mg PO DAILY [facility] Last Admin: 02/08/20 05:20 Dose: 40 mg Documented by: Metoprolol Succinate (Toprol Xl (Beta Qi)) 100 mg PO DAILY [facility] Last Admin: 02/08/20 05:20 Dose: 100 mg Documented by: Multivitamins (Multivitamin) 1 tablet PO DAILY@0800 [facility] Last Admin: 02/08/20 07:45 Dose: 1 tablet Documented by: Nystatin (Mycostatin Powder) 1 applic TOPICAL BID [facility]; Protocol Last Admin: 02/08/20 05:23 Dose: 1 applicatio Documented by: Polyethylene Glycol (Miralax) 17 gm PO DAILY [facility] Last Admin: 02/08/20 05:14 Dose: Not Given Documented by: Prednisone () 20 mg PO DAILY@0800 [facility]; Taper Stop: 02/14/20 07:59 Last Admin: 02/08/20 07:45 Dose: 20 mg Documented by: Senna/Docusate Sodium (Senokot-S, Meryl-Colace) 1 tablet PO BID [facility] Last Admin: 02/08/20 05:14 Dose: Not Given Documented by: Tuberculin PPD (Tubersol, Aplisol, Ppd) 5 tu ID X1 ONE Stop: 02/09/20 10:01 Verapamil HCl (Calan Sr) 240 mg PO DAILY [facility] Last Admin: 02/08/20 05:20 Dose: 240 mg Documented by: Discharge Diet: No Restrictions Discharge Activity: Return to Normal Activity, May Shower, Use Walker May resume sexual activity in: No Restrictions Weight Bearing Status: Weight bearing as tolerated Call your doctor if you observe: Fever of 101 or Higher, Inability to urinate, Inability to have a bowel movement, Shortness of breath, Chest pain, Uncontrolled pain Home Medications: Medications to take at Discharge Acetaminophen [Tylenol] 500 mg PO Q4H PRN PRN 01/23/20 Hydrochlorothiazide [Hctz] 25 mg PO DAILY 01/23/20 Lisinopril [Zestril] 40 mg PO DAILY 01/23/20 Metoprolol Succinate [Toprol Xl] 100 mg PO DAILY 01/23/20 Multivitamins,Therapeutic [Multivitamin] 1 tab PO DAILY 01/23/20 Selenium 200 mcg PO DAILY 01/23/20 Verapamil HCl [Verapamil ER] 240 mg PO DAILY 01/23/20 Doxycycline 100 mg PO BID #10 cap 02/08/20 Furosemide [Lasix] 20 mg PO DAILY #30 tab 02/08/20 Nystatin Powder [Mycostatin Powder] 1 applic TOPICAL BID bottle 02/08/20 Following Prescrptions Were Given to Patient: Doxycycline 100 mg PO BID #10 cap [facility] Furosemide [Lasix] 20 mg PO DAILY #30 tab [facility] Primary Care Physician: Charli Delvalle MD [Primary Care Provider] - Please follow up with your Primary Care Physician in: 1 week. Please Follow Up With: Sonny Thakkar ([place] [facility]) When: [phone] Please Follow Up With: SAWYER Szymanski Ba, MD When: f/u 1 week Disposition: Home Minutes spent on discharge:: 30 Patient Condition:: Stable Medical Necessity - Tobacco Use Smoking Status: Former smoker Tobacco Use: Non-smoker Meaningful Use Info Meaningful Use Diagnoses (Choose all that apply): None applicable
[2020-02-08 14:45] VITALS: BP 137/52; PULSE 65; RESP 18; TEMP 36.4; O2SAT 99
[2020-02-09 04:54] VITALS: BP 147/82; PULSE 72; RESP 18; TEMP 36.4; O2SAT 98
[2020-02-09 05:02] VITALS: BP 147/82; PULSE 72
[2020-02-09] MEDS: Enoxaparin 40 MG/0.4 ML Syringe SC (05:02)
[2020-02-09] MEDS: Metoprolol(XL)Succ 100 MG Tablet PO (05:02)
[2020-02-09] MEDS: Furosemide 20 MG Tablet PO (05:03)
[2020-02-09] MEDS: Doxycycline 100 MG CAPSULE PO (05:03)
[2020-02-09] MEDS: Lisinopril 40 MG Tablet PO (05:03)
[2020-02-09] MEDS: Verapamil SR 240 MG Tablet PO (05:03)
[2020-02-09] MEDS: hydroCHLOROthiazide 25 MG Tablet PO (05:03)
[2020-02-09] MEDS: Nystatin Powder 15gm Bottle 1 APPLIC TOPICAL (05:07)
[2020-02-09 05:27] LABS: Absolute Lymphocyte Count 5.29 X10^3/uL (0.83-4.51); Absolute Neutrophil Count 13.5 X10^3/uL (2.0-7.7); Basophil# 0.05 X10^3/uL; Basophil% 0.2 % (0-1); Eosinophil# 0.11 X10^3/uL; Eosinophils% 0.5 % (0-5); Hemoglobin 12.8 g/dL (13.0-16.5); Lymphocyte # 5.29 X10^3/ul (4.0); Lymphocyte % 25.6 % (19-41); Mean Corp Hgb Conc 31.2 g/dL (32-36); Mean Corpuscular Hgb 29.6 pg (27.0-32.0); Mean Corpuscular Volume 94.7 fL (80-94); Mean Platelet Vol. 9.3 fl (6.2-12.0); Monocyte# 1.34 X10^3/uL; Monocyte% 6.5 % (0-10); NRBC Flagged by Analyzer 0 % (0-5); Neutrophil # 13.52 X10^3/uL (2.7-7.7); Neutrophil % 65.4 % (47-70); POSITIVE DIFFERENTIAL YES; Platelet Count 408 K/mm3 (150-450); RBC Distribution Width CV 14.2 % (11.6-14.6); RBC Distribution Width SD 49.3 fl (35.1-43.9); Red Blood Count 4.33 M/mm3 (4.6-6.2); White Blood Count 20.7 K/mm3 (4.4-11.0)
[2020-02-09 05:52] LABS: Anion Gap 6 (5-15); BUN 70 mg/dL (7-18); BUN/Creat Ratio 41.4 RATIO (10-20); Calcium,Total 8.7 mg/dL (8.5-10.1); Chloride 100 mmol/L (98-107); Creatinine, Serum 1.69 mg/dL (0.70-1.30); EST Glomerular Filtration Rate 42 mL/min (>60); Est Glom Filt Rate - Afr Amer 51 mL/min (>60); Estimated Creatinine Clearance 33.03 ml/min; Glucose 104 mg/dL (74-106); Potassium 3.8 mmol/L (3.5-5.1); Sodium Level 139 mmol/L (136-145)
[2020-02-09 06:19] LABS: Differential Indicated SCAN CRITERIA MET
[2020-02-09 06:36] LABS: Differential Comment SCANNED
[2020-02-09 06:37] LABS: Reactive Lymphocyte 2+
[2020-02-09] MEDS: predniSONE 10 MG Tablet 20 MG PO (07:46)
[2020-02-09] MEDS: Multivitamins,Therapeutic Tablet 1 TABLET PO (07:46)
[2020-02-09 08:56] VITALS: RESP 16; TEMP 36.6; O2SAT 98
[2020-02-09 08:58] VITALS: PULSE 72; RESP 18; O2SAT 98
--- NOTE | 2020-02-09 10:51 | MDS.RN ---
Information for the mds was obtained from review of the clinical record, interview of resident, staff, and direct observation of resident's care.
== END 2020-02-09 09:48 | disposition home or self-care (01) | DRG 552 ==
PROVIDERS: Admitting Provider Family Medicine Geriatric Medicine; PCP Family Medicine; Visit Provider Family Medicine Geriatric Medicine
DX: M48.061 Spinal stenosis, lumbar region without neurogenic claudication (principal); I42.9 Cardiomyopathy, unspecified; G82.20 Paraplegia, unspecified; I10 Essential (primary) hypertension; Q24.9 Congenital malformation of heart, unspecified; Z87.891 Personal history of nicotine dependence; M10.9 Gout, unspecified
CPT/HCPCS: 36415; 80048; 85025; 97110; 97116; 97162; 97166; 97530; 97535; 97802

== ENCOUNTER → 2020-09-17 14:34 | Outpatient (CLI) | payer MEDICARE, SELFPAY ==
[2020-09-17 18:26] LABS: Uric Acid 5.7 mg/dL (3.5-7.2)
== END ==
PROVIDERS: PCP Family Medicine; Referring Provider Family Medicine; Visit Provider Family Medicine
DX: M10.9 Gout, unspecified (principal)
CPT/HCPCS: 36415; 84550

== ENCOUNTER → 2020-09-27 11:37 | Outpatient (CLI) | payer MEDICARE, SELFPAY ==
[2020-09-27 14:58] LABS: Absolute Lymphocyte Count 2.93 X10^3/uL (0.83-4.51); Absolute Neutrophil Count 7.7 X10^3/uL (2.0-7.7); Basophil# 0.04 X10^3/uL; Basophil% 0.3 % (0-1); Eosinophils% 1.7 % (0-5); Hematocrit 42.9 % (40-54); Hemoglobin 13.6 g/dL (13.0-16.5); Lymphocyte # 2.93 X10^3/ul (4.0); Lymphocyte % 25.2 % (19-41); Mean Corp Hgb Conc 31.7 g/dL (32-36); Mean Corpuscular Hgb 29.9 pg (27.0-32.0); Mean Corpuscular Volume 94.3 fL (80-94); Mean Platelet Vol. 10.6 fl (6.2-12.0); Monocyte# 0.74 X10^3/uL; Monocyte% 6.4 % (0-10); NRBC Flagged by Analyzer 0 % (0-5); Neutrophil # 7.67 X10^3/uL (2.7-7.7); Neutrophil % 65.9 % (47-70); Platelet Count 268 K/mm3 (150-450); RBC Distribution Width CV 14.5 % (11.6-14.6); RBC Distribution Width SD 50.3 fl (35.1-43.9); Red Blood Count 4.55 M/mm3 (4.6-6.2); White Blood Count 11.6 K/mm3 (4.4-11.0)
[2020-09-27 15:19] LABS: ALB/GLOB Ratio 0.9 RATIO (0.9-2.4); AST(SGOT) 12 U/L (15-37); Alanine Aminotransfer ALT/SGPT 26 U/L (16-61); Albumin, Serum 3.5 g/dL (3.2-5.0); Alkaline Phosphatase 105 U/L (45-117); Anion Gap 7 (5-15); BUN 20 mg/dL (7-18); BUN/Creat Ratio 17.5 RATIO (10-20); Calcium,Total 8.7 mg/dL (8.5-10.1); Chloride 100 mmol/L (98-107); Cholesterol 195 mg/dL (200); Creatinine, Serum 1.14 mg/dL (0.70-1.30); EST Glomerular Filtration Rate 66 mL/min (>60); Est Glom Filt Rate - Afr Amer 80 mL/min (>60); Globulin 3.9 g/dL (2.2-4.2); Glucose 85 mg/dL (74-106); High Density Lipoprotein 47 mg/dL; PSA,Total - Annual Screen 0.88 ng/mL (0.00-4.00); Potassium 3.4 mmol/L (3.5-5.1); Protein, Total 7.4 g/dL (6.4-8.2); Sodium Level 138 mmol/L (136-145); Triglycerides 139 mg/dL; Very Low Density Lipoprotein 28 mg/dL (5-40)
== END ==
PROVIDERS: PCP Family Medicine; Referring Provider Family Medicine; Visit Provider Family Medicine
DX: I10 Essential (primary) hypertension (principal); Z13.89 Encounter for screening for other disorder; Z13.0 Encounter for screening for diseases of the blood and blood-forming organs and certain disorders involving the immune mechanism; Z12.5 Encounter for screening for malignant neoplasm of prostate
CPT/HCPCS: 36415; 80053; 80061; 81002; 84153; 85025; G0103

== ENCOUNTER → 2020-09-30 13:46 | Outpatient (CLI) | payer MEDICARE, SELFPAY ==
[2020-09-30 15:40] LABS: Color, Urine Yellow (Yellow); Glucose, Dipstick Normal (Normal); Ketone-Dipstick 5 mg/dl (Negative); Leukocyte Esterase-Dipstick 25 /ul (Negative); Nitrite-Dipstick Negative (Negative); Occult Blood-Urine Negative /ul (Negative); Protein-Dipstick 100 mg/dl (Negative); Urine Bilirubin Dipstick Negative (Negative); Urine Clarity Clear (Clear); Urine Urobilinogen Normal (Normal)
== END ==
PROVIDERS: PCP Family Medicine; Referring Provider Family Medicine; Visit Provider Family Medicine
DX: I10 Essential (primary) hypertension (principal)
CPT/HCPCS: 81002

== ENCOUNTER → 2020-11-01 11:49 | Outpatient (CLI) | payer MEDICARE, SELFPAY ==
[2020-11-01 15:35] LABS: Uric Acid 6.1 mg/dL (3.5-7.2)
== END ==
PROVIDERS: PCP Family Medicine
DX: M10.9 Gout, unspecified (principal)
CPT/HCPCS: 36415; 84550

== ENCOUNTER → 2020-11-15 10:21 | Outpatient (CLI) | payer MEDICARE, SELFPAY ==
[2020-11-13 13:32] VITALS: BMI 39.0
--- NOTE | 2020-11-15 10:23 | ECHOCS_ITS ---
Reason For Study: MURMUR Procedure This was a 2D Doppler, Color Flow transthoracic echocardiogram. The study was technically difficult. Due to body habitus. Contrast injection was performed. Exam performed in department. Left Ventricle Normal LV size. Mild concentric left ventricular hypertrophy. The estimated ejection fraction is 53 %. Mild global left ventricular systolic dysfunction. Stage 1 diastolic dysfunction. There is borderline global hypokinesis of the left ventricle. Right Ventricle Normal RV size. Normal systolic function. Atria The left atrium is mildly enlarged. Normal right atrium. Mitral Valve Normal mitral valve. Tricuspid Valve Normal tricuspid valve. Aortic Valve Trisinus/trileaflet aortic valve. Mild focal aortic valve calcification. Pulmonic Valve Normal pulmonic valve. Great Vessels Normal aortic root. The pulmonary artery is normal size. Normal inferior vena cava. Pericardium/Pleural No pericardial effusion. Medication 22 gauge I.V. with prn adaptor inserted into right arm. Diluted definity 3.0ml given slow IV push to enhance endocardial definition. MMode/2D Measurements & Calculations LVIDd: 5.4 cm IVSd: 1.2 cm LVOT diam: 2.2 cm LVIDs: 3.5 cm LVPWd: 1.3 cm RVDd: 4.2 cm FS: 34.7 % LVOT area: 4.0 cm2 Ao root diam: 3.5 cm LAV(MOD-bp): 72.5 ml LA A4 area: 22.5 cm2 LAV(MOD-bp) Indexed: 33.4 ml/m2 LAV(MOD-sp2): 70.8 ml LAV(MOD-sp4): 70.9 ml LA dimension(2D): 4.5 cm RA A4 area: 14.9 cm2 Time Measurements MV dec time: 0.19 sec Doppler Measurements & Calculations MV E max konstantin: 91.6 cm/sec Lat Peak E' Konstantin: 6.3 cm/sec Med Peak E' Konstantin: 4.6 cm/sec MV A max konstantin: 105.2 cm/sec E/E' lat: 14.6 E/E' med: 19.7 MV E/A: 0.87 Ao V2 max: 185.0 cm/sec LV V1 max: 108.8 cm/sec SV(LVOT): 95.6 ml Ao max P.8 mmHg LV V1 max P.8 mmHg Ao V2 mean: 133.5 cm/sec LV V1 mean P.9 mmHg Ao mean P.8 mmHg LV V1 mean: 81.5 cm/sec Ao V2 VTI: 36.4 cm LV V1 VTI: 24.2 cm EILEEN(I,D): 2.6 cm2 EILEEN(V,D): 2.3 cm2 PA V2 max: 86.2 cm/sec Interpretation Summary Normal LV size. The estimated ejection fraction is 53 %. Mild global left ventricular systolic dysfunction. Stage 1 diastolic dysfunction. Mild concentric left ventricular hypertrophy. The left atrium is mildly enlarged. Contrast injection was performed. Ordering Physician: Adrián Bragg Referring Physician: Charli Delvalle Performed By: Huong Mcclain, SHELBY, RVT
== END ==
PROVIDERS: PCP Family Medicine; Referring Provider Internal Medicine Cardiovascular Disease; Visit Provider Internal Medicine Cardiovascular Disease
DX: R01.1 Cardiac murmur, unspecified (principal)
CPT/HCPCS: 93306; Q9957; A4216; C8929

== ENCOUNTER 2021-02-21 11:53 | Emergency (ER) | payer MEDICARE, SELFPAY ==
[2020-11-13 13:32] VITALS: BMI 39.0
[2021-02-21 11:54] VITALS: BP 157/87; PULSE 52; RESP 20; TEMP 36.6; O2SAT 96; BMI 39.5
[2021-02-21 13:05] VITALS: BP 153/100; PULSE 66; RESP 20; TEMP 36.7; O2SAT 97
--- NOTE | 2021-02-21 13:05 | VDLE_ITS ---
Reason For Study: Swelling RIGHT LEFT GSV is normal. GSV is normal. CFV is compressible, spontaneous, phasic, CFV is compressible, spontaneous, phasic, competent and demonstrates normal competent, and demonstrates normal augmentation. augmentation. FV is compressible, spontaneous, phasic, FV is compressible, spontaneous, phasic, competent and demonstrates normal competent and demonstrates normal augmentation. augmentation. POP V is compressible, spontaneous, phasic, POP V is compressible, spontaneous, phasic, competent and demonstrates normal competent and demonstrates normal augmentation. augmentation. T/P Trunk is compressible. T/P Trunk is compressible. PTV is compressible. PTV is compressible. RT PerV is compressible. LT PerV is compressible. Procedure This is a venous duplex using B-mode, color flow and spectral Doppler. Exam performed portable in ED. Calf veins only visualized at mid and distal calf due to edema. A preliminary report was called and/or faxed to [facility]. VL/Venous Duplex US - Wes Extrem Interpretation Summary No evidence for acute deep venous thrombosis bilateral lower extremities with p atent and compressible bilateral great saphenous veins. See limitation of calf vein visua lization Ordering Physician: Shelley Warren Referring Physician: Charli Delvalle Performed By: Lesley Duarte RVT
--- NOTE | 2021-02-21 13:05 | EKG12_ITS ---
Test Reason : Blood Pressure : / mmHG Vent. Rate : 061 BPM Atrial Rate : 138 BPM P-R Int : 156 ms QRS Dur : 080 ms QT Int : 450 ms P-R-T Axes : 253 029 -34 degrees QTc Int : 453 ms Normal sinus rhythm , PVC's, and Paced Rhythm ST & T wave abnormality, consider inferior ischemia Abnormal ECG Confirmed by MOI HUGHES, CATY ([id number]), newspaper managing editor ROMIE SIEGEL ([id number]) on 02/24/2021 1:33:04 PM Referred By: SHRAVAN/JAM Confirmed By:CATY PRATER MD
--- NOTE | 2021-02-21 13:06 | EDS_ITS ---
HPI History of Present Illness Chief Complaint: Cellulitis Detail of Chief Complaint: Patient with redness and swelling in his legs he noticed about 4 weeks ago. Informant: patient Narrative Narrative: Patient presents to the ER with pain in his right leg and swelling diffusely. Patient states of been swollen for about 4 weeks. He was in [place] for 3 weeks and just came back 5 days ago. He denies chest pain. He states that he is always short of breath and has noticed may be some increased exertional dyspnea. Patient [place] fever or chills or sweats. Patient noticed that both legs are weeping. [facility] Medical History (Updated 02/21/21 @ 15:[address] Shelley Warren, ) LLOYD (acute kidney injury) Bilateral leg weakness Chronic diastolic heart failure Congenital heart anomaly Debility Essential hypertension Fall Fever Gout Lower extremity weakness Lumbar spinal stenosis Nonrheumatic aortic (valve) stenosis with insufficiency Obesity Paroxysmal atrial fibrillation Sepsis SIRS (systemic inflammatory response syndrome) Home Medications hydrochlorothiazide 25 mg PO DAILY 01/23/20 [History Last Taken Unknown] multivitamin with folic acid 1 tab PO DAILY 01/23/20 [History Last Taken Unknown] selenium 200 mcg PO DAILY 01/23/20 [History Last Taken Unknown] allopurinol 100 mg tablet 200 mg PO DAILY tab 11/12/20 [History Last Taken Unknown] apple cider vinegar 300 mg tablet 900 mg PO DAILY tab 11/12/20 [History Last Taken Unknown] calcium carbonate 500 mg (1,250 mg)-vitamin D3 125 unit tablet 1 tab PO BID 11/12/20 [History Last Taken Unknown] lisinopril 20 mg tablet 20 mg PO BID tab 11/12/20 [History Last Taken Unknown] metoprolol succinate 50 mg tablet,extended release 24 hr 50 mg PO BID tab 11/12/20 [History Last Taken Unknown] primidone 50 mg tablet 50 mg PO BID tab 11/12/20 [History Last Taken Unknown] sour saab extract 1,000 mg capsule 1,200 mg PO DAILY 11/12/20 [History Last Taken Unknown] turmeric root extract 500 mg capsule 500 mg PO DAILY 11/12/20 [History Last Taken Unknown] verapamil 120 mg tablet,extended release 120 mg PO BID tab 11/12/20 [History Last Taken Unknown] furosemide [Lasix] 40 mg PO BID #14 tab 02/21/21 [Rx Last Taken Unknown] Allergy/AdvReac Type Severity Reaction Status Date / Time procaine [From Novocain] Allergy Unknown unknown Verified 02/21/21 11:57 acetaminophen [From [place]] Allergy PT UNSURE Verified 02/21/21 11:57 OF REACTION bacitracin Allergy PT UNSURE Verified 02/21/21 11:57 [From Neosporin OF REACTION ([id number])] hydrocodone [From [place]] Allergy PT UNSURE Verified 02/21/21 11:57 OF REACTION neomycin Allergy PT UNSURE Verified 02/21/21 11:57 [From Neosporin OF REACTION ([id number])] Penicillins [PCN] Allergy Rash Verified 02/21/21 11:57 polymyxin B Allergy PT UNSURE Verified 02/21/21 11:57 [From Neosporin OF REACTION ([id number])] sulfamethoxazole Allergy PT UNSURE Verified 02/21/21 11:57 [From Bactrim] OF REACTION trimethoprim [From Bactrim] Allergy PT UNSURE Verified 02/21/21 11:57 OF REACTION oxycodone AdvReac PT UNSURE Verified 02/21/21 11:57 OF REACTION Family History Father Cancer prostate Surgical History History of amputation of toe History of cardioversion (1989) History of foot surgery History of hernia repair History of left heart catheterization (1989) Previous back surgery Social History (Updated 11/13/20 @ 14:[address] Adrián Bragg MD) Smoking Status: Former smoker alcohol intake: never substance use type: does not use caffeine: Yes (4 drinks daily) ROS ROS ED Constitutional Constitutional ED: Reports systems reviewed and no addt'l complaints, except as documented; Denies body ache(s), change in weight or chills Eyes Eyes: Denies acute decrease in peripheral vision, change in vision, double vision or loss of vision ENT ENT ED: Reports none; Denies ear pain, lip swelling, loss taste/smell, neck pain, otalgia or sore throat Cardiovascular Cardiovascular: Reports none; Denies abdominal pain, chest pain with activity, leg edema, lightheadedness, palpitations, rapid heart rate or syncope Respiratory/Chest Respiratory/Chest: Reports none; Denies change in mental status, dry cough, dyspnea, hemoptysis, shortness of breath at rest or shortness of breath with exertion Gastrointestinal Gastrointestinal: Reports none; Denies abdominal pain, change in stool character, diarrhea, hematemesis, hematochezia, melena, rectal bleeding or vomiting Genitourinary Genitourinary ED: Reports none; Denies abdominal discomfort, anuria, dysuria, genital pain or polyuria Musculoskeletal Musculoskeletal: Reports none and other Details: Right leg pain and edema to both lower extremities ; Denies arthralgias, back pain, difficulty walking, extremity pain, muscle weakness or myalgias Integumentary Reports none; Denies abscess or rash Neurologic Neurologic: Reports none; Denies abnormal gait, confusion, focal weakness, frequent falls, headache(s), loss of vision, numbness, paresthesias, radicular pain, vertigo or weakness Psychiatric Psychiatric: Reports systems reviewed and no addt'l complaints, except as documented and none; Denies behavioral changes, confusion, difficulty concent rating, hallucinations, suicidal ideation, tactile hallucinations or visual hallucinations Endocrine Endocrinology: Denies none, cold intolerance, excessive sweating, fatigue or heat intolerance Hematologic/Lymphatic Hematologic/Lymphatic: Reports none; Denies anemia, easy bleeding or easy bruising Allergic/Immunologic Allergic/Immunologic ED: Denies as per HPI, none, lip swelling, mouth swelling, throat swelling, tongue swelling or hives EXAM Physical Exam Const Vital Signs: 02/21/21 11:54 02/21/21 13:05 02/21/21 13:49 Temperature 98 F 98.1 F Temperature Source Temporal Oral Pulse Rate 52 L 66 Respiratory Rate 20 H 20 H Respiratory Effort Normal Non-Labored Respiratory Pattern Normal Blood Pressure 157/87 H 153/100 H Blood Pressure Mean 110 117 Pulse Ox 96 97 Oxygen Delivery Method Room Air Room Air 02/21/21 14:00 Temperature 98.3 F Temperature Source Temporal Pulse Rate 64 Respiratory Rate 21 H Respiratory Effort Respiratory Pattern Blood Pressure 120/94 H Blood Pressure Mean 102 Pulse Ox 95 Oxygen Delivery Method Room Air Positive well nourished and well developed General Appearance ED: well developed and NAD HEENT Reports TM's clear and moist mucous membranes normocephalic and atraumatic; Negative for trauma or tenderness Tympanic Membrane ED: Yes TM's clear Eyes PERRL and EOMs intact bilaterally General Eye ED: Negative for pale conjunctiva or scleral icterus Neck no lymphadenopathy, supple and no JVD General: Negative for tenderness Chest Wall inspection of chest normal and palpation of chest normal Chest: Negative for tenderness Resp normal respiratory effort and clear to auscultation bilaterally Effort and Inspection: Negative for respiratory distress or pain with movement Auscultation: Negative for rhonchi, wheezes or diminished lung sounds Cardio regular rate, regular rhythm, S1 normal heart sound, S2 normal heart sound and no murmurs Peripheral Pulses: pulses 2+ throughout GI normal to inspection, nondistended, normoactive bowel sounds, soft to palpation, non-tender, non-distended and no masses Back/Spine no CVA tenderness and no thoracic nor lumbar tenderness Extremity normal to inspection Extremity Narrative: Patient has diffuse erythema and cellulitic changes to the right leg with diffuse edema to both lower extremities +3. The edema goes up to the thighs. General Extremety ED: Negative for edema General Extremity: Negative for edema Neuro oriented x3, CN's II-XII intact bilaterally, no sensory deficits noted and gait normal Sensorium / Orientation: awake, alert, oriented to person, oriented to place and oriented to time Motor Exam: strength 5/5 throughout and strength abnormal Psych mental status grossly normal Skin no rashes or lesions noted and no wounds MDM MDM MDM Narrative Medical decision making narrative: I was concerned about CHF given patient's significant edema and cellulitis of the right lower extremity given patient had pain and erythema. I recommended admission and discussed case with hospitalist Dr. Reji Castañeda who presented to the emergency department to evaluate patient. Hospitalist did not feel patient required admission and did not feel his exam was consistent with cellulitis. Recommended against antibiotics and discharged home with prescription for Lasix 40 mg twice daily and follow-up with primary care physician. Patient advised to return if fever, chills, sweats, increased redness to the legs, or condition should worsen anyway. Lab Data Attestation: I reviewed the patient's lab results. Labs: Laboratory Results - last 24 hr 02/21/21 02/21/21 02/21/21 13:35 13:35 13:35 WBC 12.6 H RBC 4.09 L Hgb 11.9 L Hct 38.0 L MCV 92.9 MCH 29.1 MCHC 31.3 L RDW Std Deviation 57.6 H RDW Coeff of Louis 16.9 H Plt Count 264 MPV 9.8 Immature Gran % (Auto) 0.600 Neut % (Auto) 64.7 Lymph % (Auto) 23.1 [place] % (Auto) 9.4 Eos % (Auto) 1.7 Baso % (Auto) 0.5 Absolute Neuts (auto) 8.2 H Absolute Lymphs (auto) 2.91 Nucleated RBC % 0 Sodium 137 Potassium 3.8 Chloride 100 Carbon Dioxide 31.0 Anion Gap 6 BUN 18 Creatinine 1.30 Estim Creat Clear Calc 42.26 Est GFR (MDRD) Af Amer 69 Est GFR (MDRD) Non-Af 57 L BUN/Creatinine Ratio 13.8 Glucose 104 Lactic Acid 1.7 Calcium 9.2 Troponin I < 0.015 B-Natriuretic Peptide 02/21/21 13:35 WBC RBC Hgb Hct MCV MCH MCHC RDW Std Deviation RDW Coeff of Louis Plt Count MPV Immature Gran % (Auto) Neut % (Auto) Lymph % (Auto) [place] % (Auto) Eos % (Auto) Baso % (Auto) Absolute Neuts (auto) Absolute Lymphs (auto) Nucleated RBC % Sodium Potassium Chloride Carbon Dioxide Anion Gap BUN Creatinine Estim Creat Clear Calc Est GFR (MDRD) Af Amer Est GFR (MDRD) Non-Af BUN/Creatinine Ratio Glucose Lactic Acid Calcium Troponin I B-Natriuretic Peptide 248.8 H Radiography Diagnostic Testing: Radiology Impression Chest X-Ray 02/21/21 14:05 IMPRESSION: Cardia megaly and mild degree of vascular congestion. Electronically Signed: Tommy Castellon MD at 14:43 EDT , Service support , 1 view chest x-ray obtained interpreted by myself is cardiomegaly and pulmonary congestion. Radiology in agreement. Discharge Plan Triage Chief Complaint: Cellulitis ED Provider: Shelley Warren Dx/Rx/DC Orders Clinical Impression: CHF (congestive heart failure), Chronic venous insufficiency Instructions: ED CHF Left Side, ED Peripheral Edema, Bilateral Prescriptions: New furosemide [Lasix] 40 mg tablet 40 mg PO BID Qty: 14 RF: 0 No Action apple cider vinegar 300 mg tablet 900 mg PO DAILY RF: 0 Tart Saab Extract 1,000 mg capsule 1,200 mg PO DAILY RF: 0 calcium carbonate-vitamin D3 500 mg(1,250mg) -125 unit tablet 1 tab PO BID RF: 0 allopurinol 100 mg tablet 200 mg PO DAILY RF: 0 turmeric root extract 500 mg capsule 500 mg PO DAILY RF: 0 primidone 50 mg tablet 50 mg PO BID RF: 0 selenium 200 MCG tablet 200 mcg PO DAILY RF: 0 hydrochlorothiazide 25 MG tablet 25 mg PO DAILY RF: 0 multivitamin with folic acid 1 TABLET tablet 1 tab PO DAILY RF: 0 verapamil 120 mg tablet extended release 120 mg PO BID RF: 0 metoprolol succinate 50 mg tablet extended release 24 hr 50 mg PO BID RF: 0 lisinopril 20 mg tablet 20 mg PO BID RF: 0 Primary Care Provider: Charli Delvalle Referrals: Charli Delvalle MD [Primary Care Provider] - 3-5 Days Disposition Disposition: Home, self care
[2021-02-21 13:45] LABS: Absolute Lymphocyte Count 2.91 X10^3/uL (0.83-4.51); Absolute Neutrophil Count 8.2 X10^3/uL (2.0-7.7); Basophil# 0.06 X10^3/uL; Basophil% 0.5 % (0-1); Eosinophil# 0.21 X10^3/uL; Eosinophils% 1.7 % (0-5); Hemoglobin 11.9 g/dL (13.0-16.5); Lymphocyte # 2.91 X10^3/ul (0.83-4.51); Lymphocyte % 23.1 % (19-41); Mean Corp Hgb Conc 31.3 g/dL (32-36); Mean Corpuscular Hgb 29.1 pg (27.0-32.0); Mean Corpuscular Volume 92.9 fL (80-94); Mean Platelet Vol. 9.8 fl (6.2-12.0); Monocyte# 1.18 X10^3/uL; Monocyte% 9.4 % (0-10); NRBC Flagged by Analyzer 0 % (0-5); Neutrophil # 8.19 X10^3/uL (2.7-7.7); Neutrophil % 64.7 % (47-70); Platelet Count 264 K/mm3 (150-450); RBC Distribution Width CV 16.9 % (11.6-14.6); RBC Distribution Width SD 57.6 fl (35.1-43.9); Red Blood Count 4.09 M/mm3 (4.6-6.2); White Blood Count 12.6 K/mm3 (4.4-11.0)
[2021-02-21 14:00] VITALS: BP 120/94; PULSE 64; RESP 21; TEMP 36.8; O2SAT 95
[2021-02-21 14:03] LABS: Anion Gap 6 (5-15); BUN 18 mg/dL (7-18); BUN/Creat Ratio 13.8 RATIO (10-20); Calcium,Total 9.2 mg/dL (8.5-10.1); Chloride 100 mmol/L (98-107); EST Glomerular Filtration Rate 57 mL/min (>60); Est Glom Filt Rate - Afr Amer 69 mL/min (>60); Estimated Creatinine Clearance 42.26 ml/min; Glucose 104 mg/dL (74-106); Potassium 3.8 mmol/L (3.5-5.1); Sodium Level 137 mmol/L (136-145)
--- NOTE | 2021-02-21 14:05 | RAD_ITS ---
STUDY: X-RAY CHEST REASON FOR EXAM: Male, 80 years old. Dyspnea. Bilateral lower extremity edema. TECHNIQUE: Single AP portable view of the chest. COMPARISON: Comparison is made with prior study dated 01/23/2020. FINDINGS: EKG electrodes are seen. Mild degree of vascular congestion. There is no demonstrated pleural abnormality. There is moderate cardiac enlargement. Normal mediastinum and cale. Normal visualized pulmonary arteries. There is atherosclerotic tortuosity of the aortic arch and descending thoracic aorta. There are diffuse degenerative changes of the visualized thoracic spine. Normal visualized ribs, clavicles, and shoulders. There is no demonstrated abnormality of the visualized soft tissue structures of the upper abdomen. RAD/Chest 1 View (Portable) IMPRESSION: Cardia megaly and mild degree of vascular congestion. Electronically Signed: Tommy Castellon MD at 14:43 EDT , Service support ,
[2021-02-21 14:11] LABS: BNP,B-Type NATRIURETIC PEPTIDE 248.8 pg/mL (0-100)
[2021-02-21 14:14] LABS: Lactic Acid 1.7 mmol/L (0.4-1.9)
[2021-02-21] MEDS: 0.9% Normal Saline 1,000 ML 15 ML IV (14:45)
[2021-02-21] MEDS: Furosemide 40 MG/4 ML Vial IV (14:46)
[2021-02-21 15:31] VITALS: BP 166/79; PULSE 67; RESP 22; O2SAT 95
--- NOTE | 2021-02-21 16:57 | CON.PCM.HO_ITS ---
Assessment & Plan Assessment/Plan (1) Leg edema: PLAN: 1. Lower extremity edema with venous stasis changes * This is bilaterally though worse more so on his right. Clinically I do not feel the patient has cellulitis and I do not advise any additional antibiotics. Patient with his wound so could be susceptible to developing cellulitis but do not feel that patient has any clinical evidence of cellulitis at this time. Patient does have marked edema bilaterally and has weeping due to that. Patient's only diuretic is HCTZ. I have advised patient be put on furosemide 40 mg twice daily and have a close outpatient follow-up with his PCP. Patient denies any sleep apnea and is currently and his , who is currently not present, has never informed him of snoring or any apneic episodes. I would advise outpatient polysomnogram to evaluate for sleep apnea. This patient does pulmonary hypertension. Patient's weight has gone up 15 kg since last year. Though some of the weight may be inaccurate but overall his weight has gone up significantly from a year ago and I feel that that per the reason why his legs are more edematous at this time. I do not feel the patient warrants admission as he is otherwise hemodynamically stable and I have informed the emergency room physician as such. HPI Consult Data Date of Consult: 02/21/21 HPI Narrative HPI Narrative: BARON MCCABE, is a 80 M who presents pain in his lower extremities. Patient states that his lower extremities have progressively gotten more swollen and are weeping. Presented to the emergency room with bilateral swollen legs with erythema. Patient received one-time dose of furosemide as well as clindamycin. The hospitalist service was contacted for evaluation. Patient denies any recent weight changes though his weight in our system shows he is currently 100 level in kilograms but back in January 2020 he was 96.6 kg. Patient is on HCTZ. [facility] Medical History LLOYD (acute kidney injury) Bilateral leg weakness Chronic diastolic heart failure Congenital heart anomaly Debility Essential hypertension Fall Fever Gout Lower extremity weakness Lumbar spinal stenosis Nonrheumatic aortic (valve) stenosis with insufficiency Obesity Paroxysmal atrial fibrillation Sepsis SIRS (systemic inflammatory response syndrome) Home Medications hydrochlorothiazide 25 mg PO DAILY 01/23/20 [History Last Taken Unknown] multivitamin with folic acid 1 tab PO DAILY 01/23/20 [History Last Taken Unknown] selenium 200 mcg PO DAILY 01/23/20 [History Last Taken Unknown] allopurinol 100 mg tablet 200 mg PO DAILY tab 11/12/20 [History Last Taken Un known] apple cider vinegar 300 mg tablet 900 mg PO DAILY tab 11/12/20 [History Last Taken Unknown] calcium carbonate 500 mg (1,250 mg)-vitamin D3 125 unit tablet 1 tab PO BID 11/12/20 [History Last Taken Unknown] lisinopril 20 mg tablet 20 mg PO BID tab 11/12/20 [History Last Taken Unknown] metoprolol succinate 50 mg tablet,extended release 24 hr 50 mg PO BID tab 11/12/20 [History Last Taken Unknown] primidone 50 mg tablet 50 mg PO BID tab 11/12/20 [History Last Taken Unknown] sour ceron extract 1,000 mg capsule 1,200 mg PO DAILY 11/12/20 [History Last Taken Unknown] turmeric root extract 500 mg capsule 500 mg PO DAILY 11/12/20 [History Last Taken Unknown] verapamil 120 mg tablet,extended release 120 mg PO BID tab 11/12/20 [History Last Taken Unknown] furosemide [Lasix] 40 mg PO BID #14 tab 02/21/21 [Rx Last Taken Unknown] Allergy/AdvReac Type Severity Reaction Status Date / Time procaine [From Novocain] Allergy Unknown unknown Verified 02/21/21 11:57 acetaminophen [From [place]] Allergy PT UNSURE Verified 02/21/21 11:57 OF REACTION bacitracin Allergy PT UNSURE Verified 02/21/21 11:57 [From Neosporin OF REACTION ([id number])] hydrocodone [From [place]] Allergy PT UNSURE Verified 02/21/21 11:57 OF REACTION neomycin Allergy PT UNSURE Verified 02/21/21 11:57 [From Neosporin OF REACTION ([id number])] Penicillins [PCN] Allergy Rash Verified 02/21/21 11:57 polymyxin B Allergy PT UNSURE Verified 02/21/21 11:57 [From Neosporin OF REACTION ([id number])] sulfamethoxazole Allergy PT UNSURE Verified 02/21/21 11:57 [From Bactrim] OF REACTION trimethoprim [From Bactrim] Allergy PT UNSURE Verified 02/21/21 11:57 OF REACTION oxycodone AdvReac PT UNSURE Verified 02/21/21 11:57 OF REACTION Family History Father Cancer prostate Surgical History History of amputation of toe History of cardioversion (1989) History of foot surgery History of hernia repair History of left heart catheterization (1989) Previous back surgery Social History Smoking Status: Former smoker alcohol intake: never substance use type: does not use caffeine: Yes (4 drinks daily) ROS ROS Narrative No fever or chills. All review of systems were negative except as mentioned above in the history of present illness and the other review of systems. Physical Exam Const alert HEENT normocephalic Eyes PERRL Resp normal respiratory effort and clear to auscultation bilaterally Cardio regular rate, regular rhythm, S1 normal heart sound and S2 normal heart sound GI normal to inspection, nondistended, normoactive bowel sounds, non-tender and non-distended GI Narrative: Obese Extremity Extremity Narrative: Bilateral tot lower extremity edema with venous stasis dermatitis and weeping bilaterally. Skin Skin Narrative: Weeping lower extremities. Lab / Micro Data Result Diagrams: 02/21/21 13:35 02/21/21 13:35 Labs: Laboratory Results - last 24 hr 02/21/21 02/21/21 02/21/21 13:35 13:35 13:35 WBC 12.6 H RBC 4.09 L Hgb 11.9 L Hct 38.0 L MCV 92.9 MCH 29.1 MCHC 31.3 L RDW Std Deviation 57.6 H RDW Coeff of Louis 16.9 H Plt Count 264 MPV 9.8 Immature Gran % (Auto) 0.600 Neut % (Auto) 64.7 Lymph % (Auto) 23.1 [place] % (Auto) 9.4 Eos % (Auto) 1.7 Baso % (Auto) 0.5 Absolute Neuts (auto) 8.2 H Absolute Lymphs (auto) 2.91 Nucleated RBC % 0 Sodium 137 Potassium 3.8 Chloride 100 Carbon Dioxide 31.0 Anion Gap 6 BUN 18 Creatinine 1.30 Estim Creat Clear Calc 42.26 Est GFR (MDRD) Af Amer 69 Est GFR (MDRD) Non-Af 57 L BUN/Creatinine Ratio 13.8 Glucose 104 Lactic Acid 1.7 Calcium 9.2 Troponin I < 0.015 B-Natriuretic Peptide 02/21/21 13:35 WBC RBC Hgb Hct MCV MCH MCHC RDW Std Deviation RDW Coeff of [place] Plt Count MPV Immature Gran % (Auto) Neut % (Auto) Lymph % (Auto) [place] % (Auto) Eos % (Auto) Baso % (Auto) Absolute Neuts (auto) Absolute Lymphs (auto) Nucleated RBC % Sodium Potassium Chloride Carbon Dioxide Anion Gap BUN Creatinine Estim Creat Clear Calc Est GFR (MDRD) Af Amer Est GFR (MDRD) Non-Af BUN/Creatinine Ratio Glucose Lactic Acid Calcium Troponin I B-Natriuretic Peptide 248.8 H Radiology Impression Chest X-Ray 02/21/21 14:05 IMPRESSION: Cardia megaly and mild degree of vascular congestion. Electronically Signed: Tommy Castellon MD at 14:43 EDT , Service support , Charges/Coding Visit Charges Office Visits / Consults: [id number] OP Consult L3
== END 2021-02-21 15:52 | disposition home or self-care (01) ==
PROVIDERS: Emergency Provider Emergency Medicine; PCP Family Medicine
DX: I87.2 Venous insufficiency (chronic) (peripheral) (principal); I11.0 Hypertensive heart disease with heart failure; I50.32 Chronic diastolic (congestive) heart failure; Z79.899 Other long term (current) drug therapy; Z87.891 Personal history of nicotine dependence
CPT/HCPCS: 71045; 80048; 83605; 83880; 84484; 85025; 87040; 93005; 93970; 96365; 96375; 99285; J7030; A4216; J1940

== ENCOUNTER 2021-08-09 14:20 | Inpatient (IN) | payer MEDICARE, SELFPAY ==
[2021-08-09] VITALS (15 sets, daily range): BP systolic 130–154; BP diastolic 62–82; PULSE 53–74; RESP 18–23; TEMP 36.6–37.4; O2SAT 70–95; BMI 37.9; BMI 37.1
--- NOTE | 2021-08-09 14:43 | EKG12_ITS ---
Test Reason : SOB Blood Pressure : / mmHG Vent. Rate : 073 BPM Atrial Rate : 073 BPM P-R Int : 160 ms QRS Dur : 082 ms QT Int : 494 ms P-R-T Axes : -17 -07 -17 degrees QTc Int : 544 ms Normal sinus rhythm Voltage criteria for left ventricular hypertrophy Inferior infarct , age undetermined Abnormal ECG Confirmed by MOI HUGHES, CAYT ([id number]), copy editor ROMIE SIEGEL ([id number]) on 08/12/2021 9:00:47 AM Referred By: RICARDO Confirmed By:CATY PRATER MD
--- NOTE | 2021-08-09 14:45 | ED.VIS.DYS ---
HPI History of Present Illness Chief Complaint: Shortness of Breath Informant: patient and spouse/S.O. Narrative Narrative: 80-year-old male presenting to the emergency room for shortness of breath. Symptoms began Thanks evening. States for Thanksgiving he had the full spread of ham mashed potatoes and gravy corn etc. He notes progressive worsening of his shortness of breath. He denies any change in leg swelling. He has a history of nonischemic cardiomyopathy and aortic valve replacement. His echocardiogram in the spring 2020 demonstrates an ejection fraction of 53% and stage I diastolic dysfunction. He follows with Dr. Bragg locally for cardiology. He has never had heart attack that he is aware of and has no prior PCI. The patient does not wear oxygen at home. 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 Debility Essential hypertension Fall Fever Gout Lower extremity weakness Lumbar spinal stenosis Multiple premature ventricular complexes Obesity Paroxysmal atrial fibrillation Sepsis SIRS (systemic inflammatory response syndrome) Home Medications multivitamin with folic acid 1 tab PO DAILY 01/23/20 [History Last Taken Unknown] apple cider vinegar 300 mg tablet 900 mg PO DAILY tab 11/12/20 [History Last Taken Unknown] lisinopril 20 mg tablet 20 mg PO BID tab 11/12/20 [History Last Taken Unknown] metoprolol succinate 50 mg tablet,extended release 24 hr 50 mg PO BID tab 11/12/20 [History Last Taken Unknown] furosemide [Lasix] 40 mg PO BID #14 tab 02/21/21 [Rx Last Taken Unknown] allopurinol 100 mg tablet 300 mg PO DAILY tab 03/12/21 [History Last Taken Unknown] carbidopa ER 25 mg-levodopa 100 mg tablet,extended release 1 tab PO TID 07/04/21 [History Last Taken Unknown] verapamil 120 mg tablet,extended release 120 mg PO DAILY tab 07/28/21 [History Last Taken Unknown] Allergy/AdvReac Type Severity Reaction Status Date / Time procaine [From Novocain] Allergy Unknown unknown Verified 08/09/21 14:21 acetaminophen [From [place]] Allergy PT UNSURE Verified 08/09/21 14:21 OF REACTION bacitracin Allergy PT UNSURE Verified 08/09/21 14:21 [From Neosporin OF REACTION ([id number])] hydrocodone [From [place]] Allergy PT UNSURE Verified 08/09/21 14:21 OF REACTION neomycin Allergy PT UNSURE Verified 08/09/21 14:21 [From Neosporin OF REACTION ([id number])] Penicillins [PCN] Allergy Rash Verified 08/09/21 14:21 polymyxin B Allergy PT UNSURE Verified 08/09/21 14:21 [From Neosporin OF REACTION ([id number])] sulfamethoxazole Allergy PT UNSURE Verified 08/09/21 14:21 [From Bactrim] OF REACTION trimethoprim [From Bactrim] Allergy PT UNSURE Verified 08/09/21 14:21 OF REACTION oxycodone AdvReac PT UNSURE Verified 08/09/21 14:21 OF REACTION Family History Father Cancer prostate Surgical History History of amputation of toe History of cardioversion (1989) History of foot surgery History of hernia repair History of left heart catheterization (1989) Previous back surgery Social History Smoking Status: Former smoker alcohol intake: never substance use type: does not use caffeine: Yes (4 drinks daily) ROS ROS ED Constitutional Constitutional ED: Denies chills, fever(s) or weight loss Eyes Eyes: Denies change in vision or diplopia ENT ENT ED: Denies ear pain, rhinorrhea or sore throat Cardiovascular Cardiovascular: Denies chest pain, orthopnea, palpitations or racing heartbeat Respiratory/Chest Respiratory/Chest: Reports cough, dyspnea and dyspnea on exertion; Denies orthopnea Gastrointestinal Gastrointestinal: Denies abdominal pain, diarrhea, nausea or vomiting Genitourinary Genitourinary ED: Denies dysuria, hematuria or urinary frequency Musculoskeletal Musculoskeletal: Denies arthralgias or myalgias Integumentary Denies abscess or rash Neurologic Neurologic: Denies headache(s) or weakness Psychiatric Psychiatric: Denies anxiety, depression, suicidal ideation or suicidal thoughts Endocrine Endocrinology: Denies polydipsia, polyphagia or polyuria Allergic/Immunologic Allergic/Immunologic ED: Denies mouth swelling, tongue swelling or urticaria EXAM Physical Exam Const Vital Signs: 08/09/21 14:26 08/09/21 14:31 08/09/21 14:35 Temperature 99.3 F H Temperature Source Oral Pulse Rate 74 73 Respiratory Rate 20 H 20 H Respiratory Effort Short of Breath Accessory Muscle Use Respiratory Depth Shallow Respiratory Pattern Tachypnea Blood Pressure 130/70 H Blood Pressure Mean 90 Pulse Ox 70 94 Oxygen Delivery Method Room Air Nasal Cannula Nasal Cannula Oxygen Flow Rate (L/min) 4 4 08/09/21 14:36 Temperature 99.3 F H Temperature Source Oral Pulse Rate 73 Respiratory Rate 22 H Respiratory Effort Respiratory Depth Respiratory Pattern Blood Pressure 130/70 H Blood Pressure Mean 90 Pulse Ox 94 Oxygen Delivery Method Nasal Cannula Oxygen Flow Rate (L/min) 4 Positive well nourished, well developed and obese General Appearance ED: well developed Nutritional Appearance: obese HEENT Reports normocephalic, head/scalp atraumatic and moist mucous membranes; Denies TM's clear atraumatic Tympanic Membrane ED: Negative for TM's clear Eyes PERRL and EOMs intact bilaterally Neck no lymphadenopathy, supple and no JVD Resp normal respiratory effort and clear to auscultation bilaterally Cardio regular rate, regular rhythm and no murmurs GI normal to inspection, nondistended, normoactive bowel sounds and non-tender Palpation: soft Back/Spine no CVA tenderness and normal ROM; Negative for normal to inspection Extremity normal to inspection General Extremety ED: Negative for edema General Extremity: Negative for edema Neuro oriented x3 and CN's II-XII intact bilaterally Sensorium / Orientation: alert Motor Exam: strength 5/5 throughout Psych mental status grossly normal Mood & Affect: Negative for depressed or tearful Skin no rashes or lesions noted and no wounds Rashes: no rashes MDM MDM EKG Initial EKG: Attestation: I personally reviewed and interpreted this EKG as follows: Comments: Normal sinus rhythm with a ventricular rate of 73 bpm. Discharge Plan Triage Chief Complaint: Shortness of Breath Other Complaint: Weakness ED Provider: Tomás Rodriguez Dx/Rx/DC Orders Prescriptions: No Action apple cider vinegar 300 mg tablet 900 mg PO DAILY RF: 0 allopurinol 100 mg tablet 300 mg PO DAILY RF: 0 carbidopa-levodopa 25-100 mg tablet extended release 1 tab PO TID RF: 0 multivitamin with folic acid 1 TABLET tablet 1 tab PO DAILY RF: 0 metoprolol succinate 50 mg tablet extended release 24 hr 50 mg PO BID RF: 0 lisinopril 20 mg tablet 20 mg PO BID RF: 0 furosemide [Lasix] 40 mg tablet 40 mg PO BID Qty: 14 RF: 0 verapamil 120 mg tablet extended release 120 mg PO DAILY RF: 0 Primary Care Provider: Charli Delvalle
[2021-08-09 14:50] LABS: Absolute Lymphocyte Count 1.67 X10^3/uL (0.83-4.51); Absolute Neutrophil Count 6.4 X10^3/uL (2.0-7.7); Basophil# 0.03 X10^3/uL; Basophil% 0.3 % (0-1); Hematocrit 40.1 % (40-54); Hemoglobin 13.3 g/dL (13.0-16.5); Lymphocyte # 1.67 X10^3/ul (0.83-4.51); Lymphocyte % 18.6 % (19-41); Mean Corp Hgb Conc 33.2 g/dL (32-36); Mean Corpuscular Hgb 30.7 pg (27.0-32.0); Mean Corpuscular Volume 92.6 fL (80-94); Mean Platelet Vol. 9.6 fl (6.2-12.0); Monocyte# 0.84 X10^3/uL; Monocyte% 9.3 % (0-10); NRBC Flagged by Analyzer 0 % (0-5); Neutrophil # 6.39 X10^3/uL (2.7-7.7); Neutrophil % 71.1 % (47-70); Platelet Count 215 K/mm3 (150-450); RBC Distribution Width CV 14.7 % (11.6-14.6); RBC Distribution Width SD 50.4 fl (35.1-43.9); Red Blood Count 4.33 M/mm3 (4.6-6.2)
--- NOTE | 2021-08-09 15:00 | RAD_ITS ---
INDICATION: chf EXAMINATION/TECHNIQUE: X-RAY - XR Chest 1 View COMPARISON: 02/21/2021 FINDINGS: LIFE-SUPPORT AND LINES: 1. None HEART AND VESSELS: The cardiac silhouette, pulmonary vasculature have unchanged appearance. No evidence of congestive failure. LUNGS AND PLEURAL SPACES: Diffuse interstitial and hazy parenchymal infiltrate at the lung bases greater on the RIGHT than LEFT. There has been mild worsening in the interval. No pulmonary mass is noted. MEDIASTINUM AND HILAR REGIONS: No masses adenopathy noted. No areas of calcification. Visualized upper airway is normal in position. BONY ELEMENTS: No acute bony changes noted. RAD/Chest 1 View (Portable) IMPRESSION: 1. Stable borderline cardiomegaly. No evidence of congestive failure. There is mild central congestion. 2. Interval worsening of diffuse atypical infiltrate greater on the RIGHT than LEFT. No carrie consolidation or effusion Electronically Signed: Jamey Ortiz MD at 15:14 EST Tel , Service support ,
[2021-08-09 15:05] LABS: ALB/GLOB Ratio 0.7 RATIO (0.9-2.4); AST(SGOT) 58 U/L (15-37); Alanine Aminotransfer ALT/SGPT 32 U/L (16-61); Alkaline Phosphatase 95 U/L (45-117); Anion Gap 10 (5-15); BUN 41 mg/dL (7-18); BUN/Creat Ratio 19.4 RATIO (10-20); Calcium,Total 8.5 mg/dL (8.5-10.1); Chloride 98 mmol/L (98-107); Creatinine, Serum 2.11 mg/dL (0.70-1.30); EST Glomerular Filtration Rate 32 mL/min (>60); Est Glom Filt Rate - Afr Amer 39 mL/min (>60); Estimated Creatinine Clearance 26.04 ml/min; Globulin 4.5 g/dL (2.2-4.2); Glucose 115 mg/dL (74-106); Potassium 3.1 mmol/L (3.5-5.1); Protein, Total 7.5 g/dL (6.4-8.2); Sodium Level 137 mmol/L (136-145); Troponin-I HS 99 pg/mL (3.0-78.0)
[2021-08-09 15:18] LABS: BNP,B-Type NATRIURETIC PEPTIDE 64.2 pg/mL (0-100)
--- NOTE | 2021-08-09 15:52 | CT_ITS ---
STUDY: CTA CHEST REASON FOR EXAM: Male, 80 years old. Pulmonary embolism RADIATION DOSAGE (If Supplied By Facility): CTDIvol = ( 12.67 ) mGy, DLP = ( 477.61 ) mGycm TECHNIQUE: The examination was performed with the intravenous administration of IV 100mL Isovue-370. Post-processing of the angiographic images was performed, with multiplanar reformation and 3D reconstruction. Individualized dose optimization techniques were used for this CT. COMPARISON: None. FINDINGS: CTA: PULMONARY ARTERIES: There is normal configuration and contrast opacification of pulmonary outflow tract, main pulmonary arteries, segmental and intersegmental pulmonary arteries bilaterally without evidence of intraluminal filling defects. AORTIC ARCH: The aortic arch and descending aorta have normal configuration. No evidence of dissection or aneurysmal dilatation. HEART: Cardiac contour is normal. No evidence pericardial effusion. Scattered coronary vascular calcifications are present. CT CHEST: LUNGS: [Scattered areas of groundglass infiltrate noted most notable at the RIGHT lung base, however noted in the upper lungs bilaterally. Areas of developing interstitial scar and fibrosis noted. No effusion. PLEURAL SPACES: Unremarkable, no effusion or pneumothorax.. MEDIASTINUM AND LYMPH NODES: Unremarkable. No significant adenopathy. BONES: Mild thoracic spondylosis, no fracture or destructive bony process noted. No canal stenosis. ABDOMEN: Within normal limits. Other: None IMPRESSIONS: 1. No CTA evidence of pulmonary embolism. 2. No CTA evidence of aortic aneurysm or dissection 3. Normal CT appearance of the heart and pericardium. Coronary vascular calcifications are present. 4. Diffuse groundglass infiltrate most notable on the RIGHT including RIGHT lower lobe, as well as upper lobes. Pattern is consistent with atypical viral/ Covid pneumonia. No effusion. Electronically Signed: Jamey Ortiz MD at 16:53 EST Tel , Service support , CT/CTA Chest W/WO Contrast
[2021-08-09] MEDS: dexAMETHasone 4 MG Tablet 6 MG PO (16:25)
[2021-08-09 16:32] LABS: CPK Total, Creatine Kinase 810 U/L (39-308); LDH 361 U/L (87-241)
[2021-08-09 16:47] LABS: Fibrinogen 623 mg/dl (203-444)
[2021-08-09 16:54] LABS: D-Dimer Quantitative (DVT/PE) 0.94 FEU/ug/m (0.27-0.49)
[2021-08-09 16:59] LABS: Procalcitonin 0.19 ng/mL (0.00-0.09)
--- NOTE | 2021-08-09 17:41 | HP.PCM.HOS_ITS ---
HPI - General General Date of Admission: 08/09/21 Date of Service: 08/09/21 Chief Complaint: Cough, dyspnea. HPI Narrative The patient is a 80 y/o M w/ PMHx: Chronic combined Systolic/Diastolic CHF, HTN, HLD, PAF, Parkinson's disease, Obesity who presents to the [facility] ED on 08/09/21 with history of unvaccinated COVID status with onset on 08/07/21 [place] [facility] [place] [facility] notable cough and dyspnea which has progressively worsened prompting ED evaluation. Patient's has also been feeling similarly ill since that timeline and is also unvaccinated. Patient has not had any fevers, chills, headache, sore throat, alteration sense of taste or smell, body aches, nausea, vomiting, diarrhea associated yet with the onset of his symptoms for Covid. Work-up in the ED included T 98.2, heart rate 67, BP 134/82, respiratory rate 20, 93% on 5 L nasal cannula, CBC with WBC 9, hemoglobin 13.3, platelets 215 without marked shift, fibrinogen 623, D-dimer 0.94, CMP with potassium 3.1, BUN/creatinine 41/2.11 with creatinine clearance 26, glucose 115, AST/ALT 58/32, LDH 361, TCK 810, initial troponin high-sensitivity 99, CRP 96.2, BNP 64.2, procalcitonin 0.19, rapid Covid antigen positive, chest x-ray with stable borderline cardiomegaly with no evidence of congestive heart failure with mild central congestion, interval worsening diffuse atypical infiltrates right greater than left with no carrie consolidation or effusions, CTPA with no evidence of PE, aortic aneurysm or dissection, diffuse groundglass infiltrates more notable on the right including right lower lobe as well as upper lobes, pattern consistent with Covid pneumonia with no evidence of any effusions. In the ED patient administered Decadron 6 mg p.o. x1.p PFSH Medical History LLOYD (acute kidney injury) Arrhythmia Bilateral leg weakness Chronic combined systolic and diastolic CHF (congestive heart failure) Congenital heart anomaly Debility Essential hypertension Fall Fever Gout Lower extremity weakness Lumbar spinal stenosis Multiple premature ventricular complexes Obesity Paroxysmal atrial fibrillation Sepsis SIRS (systemic inflammatory response syndrome) Home Medications multivitamin with folic acid 1 tab PO DAILY 01/23/20 [History Last Taken Unknown] lisinopril 20 mg tablet 20 mg PO BID tab 11/12/20 [History Last Taken Unknown] metoprolol succinate 50 mg tablet,extended release 24 hr 50 mg PO BID tab 11/12/20 [History Last Taken Unknown] furosemide [Lasix] 40 mg PO BID #14 tab 02/21/21 [Rx Last Taken Unknown] allopurinol 100 mg tablet 300 mg PO DAILY tab 03/12/21 [History Last Taken Unknown] carbidopa ER 25 mg-levodopa 100 mg tablet,extended release 1 tab PO TID 07/04/21 [History Last Taken Unknown] verapamil 120 mg tablet,extended release 120 mg PO DAILY tab 07/28/21 [History Last Taken Unknown] Allergy/AdvReac Type Severity Reaction Status Date / Time procaine [From Novocain] Allergy Unknown unknown Verified 08/09/21 14:21 acetaminophen [From [place]] Allergy PT UNSURE Verified 08/09/21 14:21 OF REACTION bacitracin Allergy PT UNSURE Verified 08/09/21 14:21 [From Neosporin OF REACTION ([id number])] hydrocodone [From [place]] Allergy PT UNSURE Verified 08/09/21 14:21 OF REACTION neomycin Allergy PT UNSURE Verified 08/09/21 14:21 [From Neosporin OF REACTION ([id number])] Penicillins [PCN] Allergy Rash Verified 08/09/21 14:21 polymyxin B Allergy PT UNSURE Verified 08/09/21 14:21 [From Neosporin OF REACTION ([id number])] sulfamethoxazole Allergy PT UNSURE Verified 08/09/21 14:21 [From Bactrim] OF REACTION trimethoprim [From Bactrim] Allergy PT UNSURE Verified 08/09/21 14:21 OF REACTION oxycodone AdvReac PT UNSURE Verified 08/09/21 14:21 OF REACTION Family History (Updated 08/09/21 @ 18:[address] Regina Monreal MD) Father Cancer prostate Mother Dementia Surgical History History of amputation of toe History of cardioversion (1989) History of foot surgery History of hernia repair History of left heart catheterization (1989) Previous back surgery Social History (Updated 08/09/21 @ 18:[address] Regina Monreal MD) household members: spouse Smoking Status: Former smoker how long ago did patient quit smoking: Quit > 30 years prior, smoked ~ 1 pack/week. alcohol intake: never substance use type: does not use caffeine: Yes (4 drinks daily) ROS ROS Narrative Admission Review of Systems: CONSTITUTIONAL: No weight loss, fever, chills, + weakness or fatigue. HEENT: Eyes: No visual loss, blurred vision, double vision or yellow sclerae. Ears, Nose, Throat: No hearing loss, sneezing. SKIN: No rash or itching, lesions, wounds. CARDIOVASCULAR: No chest pain, chest pressure or chest discomfort, palpitations, edema, orthopnea, syncopal events. RESPIRATORY: + shortness of breath, cough, No marked sputum, wheezing, hemoptysis. GASTROINTESTINAL: + anorexia, No nausea, vomiting, diarrhea, No abdominal pain, melena, BRBPR. GENITOURINARY: No dysuria, frequency, urgency or retention. NEUROLOGICAL: + headache, No dizziness, syncope, paralysis, ataxia, numbness or tingling in the extremities, focal weakness, change in bowel or bladder control, seizure. MUSCULOSKELETAL: + muscle, back pain, joint pain or stiffness. HEMATOLOGIC: No anemia, bleeding or bruising. LYMPHATICS: No enlarged nodes. No history of splenectomy. PSYCHIATRIC: No history of depression or anxiety. ENDOCRINOLOGIC: No reports of sweating, cold or heat intolerance. No polyuria or polydipsia. ALLERGIES: No history of asthma, hives, eczema or rhinitis. Vital Signs Vital Signs Vital Signs: 08/09/21 14:26 08/09/21 14:31 08/09/21 14:35 Temperature 99.3 F H Temperature Source Oral Pulse Rate 74 73 Respiratory Rate 20 H 20 H Respiratory Effort Short of Breath Accessory Muscle Use Respiratory Depth Shallow Respiratory Pattern Tachypnea Blood Pressure 130/70 H Blood Pressure Mean 90 Pulse Ox 70 94 Oxygen Delivery Method Room Air Nasal Cannula Nasal Cannula Oxygen Flow Rate (L/min) 4 4 08/09/21 14:36 08/09/21 14:53 08/09/21 15:28 Temperature 99.3 F H Temperature Source Oral Pulse Rate 73 69 Respiratory Rate 22 H 23 H Respiratory Effort Respiratory Depth Respiratory Pattern Blood Pressure 130/70 H 143/74 H Blood Pressure Mean 90 97 Pulse Ox 94 95 93 Oxygen Delivery Method Nasal Cannula Nasal Cannula Room Air Oxygen Flow Rate (L/min) 4 4 08/09/21 16:28 08/09/21 17:23 Temperature 98.2 F 98.2 F Temperature Source Oral Oral Pulse Rate 70 67 Respiratory Rate 18 20 H Respiratory Effort Respiratory Depth Respiratory Pattern Blood Pressure 146/78 H 134/82 H Blood Pressure Mean 100 99 Pulse Ox 92 93 Oxygen Delivery Method Nasal Cannula Nasal Cannula Oxygen Flow Rate (L/min) 4 5 Weight Weight: 234 lb 12.8 oz Body Mass Index (BMI) 37.9 Physical Exam Narrative Physical Examination: General: Awake, alert, oriented x 3 and cooperative, seated upright in the ED bed, fatigued and ill-appearing, mildly increased respiratory rate. Skin: Normal color, normal turgor, no icterus, no cyanosis. HEENT: AT/NC, EOMI, PERRLA, moderately dry MM, no carotid bruits or JVD noted. Lungs: Diffusely diminished, greater bases, increased respiratory rate, no rales, ronchi or wheezing. Heart: Regular rate with regular rhythm; no gallop, rub audible. Abdomen: Soft, obese, no obvious TTP, unable to discern distention given habitus, distant hyperactive bowel sounds, unable to discern HSM secondary to habitus. Extremities: No cyanosis, clubbing, or edema. Neurological: Patient awake, alert, oriented as noted, cognitive function intact; pupils equally reactive to light and accommodation, cranial nerves II- XII grossly normal, moving all 4 extremities, no focal deficits, strength moderately to severely global decrease secondary to acute presentation. Psychiatric: Affect appears fatigued, ill-appearing, no acute evidence of depressive or anxiety feelings. Results Lab / Micro Data Result Diagrams: 08/09/21 14:35 08/09/21 14:35 Labs: Laboratory Results - last 24 hr 08/09/21 14:35: WBC 9.0, RBC 4.33 L, Hgb 13.3, Hct 40.1, MCV 92.6, MCH 30.7, MCHC 33.2, RDW Std Deviation 50.4 H, RDW Coeff of [place] 14.7 H, Plt Count 215, MPV 9.6, Immature Gran % (Auto) 0.700, Neut % (Auto) 71.1 H, Lymph % (Auto) 18.6 L, [place] % (Auto) 9.3, Eos % (Auto) 0.0, Baso % (Auto) 0.3, Absolute Neuts (auto) 6.4, Absolute Lymphs (auto) 1.67, Nucleated RBC % 0 08/09/21 14:35: Sodium 137, Potassium 3.1 L, Chloride 98, Carbon Dioxide 29.0, Anion Gap 10, BUN 41 H, Creatinine 2.11 H, Estim Creat Clear Calc 26.04, Est GFR (MDRD) Af Amer 39 L, Est GFR (MDRD) Non-Af 32 L, BUN/Creatinine Ratio 19.4, Glucose 115 H, Calcium 8.5, Total Bilirubin 0.50, AST 58 H, ALT 32, Alkaline Phosphatase 95, Troponin I High Sens 99 H, Total Protein 7.5, Albumin 3.0 L, Globulin 4.5 H, Albumin/Globulin Ratio 0.7 L 08/09/21 14:35: B-Natriuretic Peptide 64.2 08/09/21 14:35: Fibrinogen 623 H, D-Dimer Quant (PE/DVT) 0.94 H* 08/09/21 14:35: Lactate Dehydrogenase 361 H, Total Creatine Kinase 810 H, C-Re act Prot Ext Range 96.20 H 08/09/21 14:35: Procalcitonin 0.19 H Micro: Microbiology 08/09/21 14:35 Nasal Secretion SARS-CoV-2 Antigen (Rapid) - Final SARS-CoV-2 (COVID 19) Radiology Impression Chest X-Ray 08/09/21 15:00 IMPRESSION: 1. Stable borderline cardiomegaly. No evidence of congestive failure. There is mild central congestion. 2. Interval worsening of diffuse atypical infiltrate greater on the RIGHT than LEFT. No carrie consolidation or effusion Electronically Signed: Jamey Ortiz MD at 15:14 EST Tel , Service support , Chest CTA 08/09/21 15:52 Assessment & Plan Assessment/Plan (1) Pneumonia due to COVID-19 virus: (2) LLOYD (acute kidney injury): (3) Hypoxia: PLAN: The patient is a 80 y/o M w/ PMHx: Chronic combined Systolic/ Diastolic CHF, HTN, HLD, PAF, Parkinson's disease, Obesity who presents to the [facility] ED on 08/09/21 with history of unvaccinated COVID status with onset on 08/07/21 while at a very large [place] gathering notable cough and dyspnea which has progressively worsened prompting ED evaluation. #1. Acute Hypoxia secondary to Acute Bilateral Pneumonia secondary to Acute Viral Syndrome, COVID-19 with unvaccinated status: Will admit to the [facility] telemetry, maintain on COVID precautions, will maintain on oxygen with wean as tolerated to room air, PRN albuterol, HOB, IS parameters w/ pending sputum cult ures, respiratory viral panel and urine antigens, will Ferritin and cycle cardiac enzymes, all other COVID panel labs performed per ED, will continue supportive care including q 2 hour turning including prone given no prone bed availability and judicious hydration, closely monitor for worsening status for ARDS and multiorgan failure, will initiate and continue IV decadron x 10 doses, given presentation with LLOYD with CrCl < 30 patient is not candidate for remdesivir. If respiratory status worsens and patient requires airvo or BIPAP transition will initiate barcitinib regimen additionally with ID involvement. #2. Acute kidney injury: Secondary to acute presentation as noted #1 with poor oral intake. Admission BUN/Cr 41/2.11, prior baseline creatinine noted to be primarily 1.1-1.2. Will very judiciously hydrate given CHF history as well as acute presentation #1, hold nephrotoxic medications and repeat chemistry in AM. If renal function does improve enough with appropriate creatinine clearance may be able to initiate remdesivir. #3. Indeterminate cardiac enzyme: EKG in ED with sinus rhythm with no acute evidence of ischemia, CXR w/ Covid pneumonia, CTPA with no evidence of pulmonary embolism or dissection with bilateral Covid pneumonia, initial trop 99. Will place on a monitored bed and trend cardiac enzymes. Likely elevated secondary to demand ischemia. We will continue patient cardiac medications in addition to aspirin. #4. Hypokalemia: Admission K+ 3.1, magnesium level requested, supplementation given, repeat level in AM. #5. Chronic combined diastolic/systolic CHF: Currently appears compensated, chest x-ray with Covid pneumonia, CTPA with Covid pneumonia appearance with no acute evidence of PE, judiciously hydrating given #1, #2, temporarily holding Lasix and lisinopril given acute kidney injury, will continue patient home metoprolol regimen, not on statin therapy. #6. Hypertension: Continue home regimen including verapamil, metoprolol with hold parameters as needed. Will resume patient Lasix and lisinopril as able pending renal function in a.m., PRN hydralazine. #7. Hyperlipidemia: Not on regimen, defer to outpatient. #8. PAF: Patient does not chronically anticoagulated, continue patient's metoprolol and verapamil regimen. #9. Parkinson's disease: We will maintain on fall precautions, PT and OT requested, continue patient Sinemet regimen. #10. Gout: We will continue patient home allopurinol regimen. #11. Obesity: Weight loss and lifestyle changes encouraged. #12. DVT prophylaxis: SCDs, renally dose Lovenox per Covid protocol. #13. CODE status: Patient does not have healthcare power of immigration attorney nor living will in place discussed CODE status at length including difference between FULL code, DNR-CCA and DNR-CC status. Following discussions about the differences in these status, requested Full Code status. Given patient presentation with bilateral Covid pneumonia and significant oxygen requirements early in the course discussed likely prognosis. Patient is amenable to air Vo and BiPAP if also necessary. Advanced Care Planning Face to Face Time: 16 minutes. Charges/Coding Visit Charges Inpatient E&M: 71936 Init Hosp L3 Procedures Hospitalists Procedures: 32416 Advncd Care Plan 30 Min
[2021-08-09 18:54] LABS: Ferritin 704 ng/mL (26-388); Magnesium 2.1 mg/dL (1.6-2.6)
[2021-08-09] MEDS: 0.9% Normal Saline 1,000 ML 100 ML IV (21:16)
[2021-08-09] MEDS: Aspirin 325 MG Tablet PO (21:17)
[2021-08-09] MEDS: Potassium Chloride Oral Tablet 20 MEQ 40 MEQ PO (21:17)
[2021-08-09] MEDS: 0.9% Saline Lock 10 ML Syringe IV (21:17)
[2021-08-09 21:21] LABS: Troponin-I HS 84 pg/mL (3.0-78.0)
[2021-08-09] MEDS: Metoprolol(XL)Succ 50 MG Tablet PO (21:26)
[2021-08-10] VITALS (16 sets, daily range): BP systolic 146–172; BP diastolic 75–86; PULSE 49–98; RESP 18–20; TEMP 36.3–36.5; O2SAT 88–98
[2021-08-10 02:09] LABS: Troponin-I HS 80 pg/mL (3.0-78.0)
--- NOTE | 2021-08-10 06:07 | PN.HOSP_ITS ---
Subjective Subjective Patient with no acute overnights per self and per nursing report. Patient up this morning in the bedside chair noting that he feels improved since initial ED presentation however he has been requiring up to 6 L nasal cannula. Patient's nurse did note that she had attempted to wean him while he was in bed however when he even got up to the bedside chair to eat this morning he had significant work of breathing and fatigue. Again discussed importance of I-S and positional changes including prone with patient and he is understandable. Patient denies fevers, chills, nausea, emesis, abdominal pain, chest pain. Objective Data Objective Data Vital Signs: Vital Signs Temp Pulse Resp BP Pulse Ox 97.5 F L 53 L 18 146/75 H 98 08/10/21 03:19 08/10/21 04:00 08/10/21 03:19 08/10/21 03:19 08/10/21 03:19 Oxygen Flow Rate (L/min) 6 Oxygen Delivery Method Nasal Cannula Weight: 229 lb 4.492 oz Body Mass Index (BMI) 37.1 Intake & Output: Intake and Output for Last 24 Hours 08/08/21 08/09/21 08/10/21 23:59 23:59 23:59 Intake Total 100 / 100 Balance 100 / 100 Lab / Micro Data Result Diagrams: 08/10/21 07:07 08/10/21 07:07 Labs: Laboratory Results - last 24 hr 08/09/21 14:35: WBC 9.0, RBC 4.33 L, Hgb 13.3, Hct 40.1, MCV 92.6, MCH 30.7, MCHC 33.2, RDW Std Deviation 50.4 H, RDW Coeff of Louis 14.7 H, Plt Count 215, MPV 9.6, Immature Gran % (Auto) 0.700, Neut % (Auto) 71.1 H, Lymph % (Auto) 18.6 L, Patrick % (Auto) 9.3, Eos % (Auto) 0.0, Baso % (Auto) 0.3, Absolute Neuts (auto) 6.4, Absolute Lymphs (auto) 1.67, Nucleated RBC % 0 08/09/21 14:35: Sodium 137, Potassium 3.1 L, Chloride 98, Carbon Dioxide 29.0, Anion Gap 10, BUN 41 H, Creatinine 2.11 H, Estim Creat Clear Calc 26.04, Est GFR (MDRD) Af Amer 39 L, Est GFR (MDRD) Non-Af 32 L, BUN/Creatinine Ratio 19.4, Glucose 115 H, Calcium 8.5, Total Bilirubin 0.50, AST 58 H, ALT 32, Alkaline Phosphatase 95, Troponin I High Sens 99 H, Total Protein 7.5, Albumin 3.0 L, Globulin 4.5 H, Albumin/Globulin Ratio 0.7 L 08/09/21 14:35: B-Natriuretic Peptide 64.2 08/09/21 14:35: Fibrinogen 623 H, D-Dimer Quant (PE/DVT) 0.94 H* 08/09/21 14:35: Lactate Dehydrogenase 361 H, Total Creatine Kinase 810 H, C- React Prot Ext Range 96.20 H 08/09/21 14:35: Procalcitonin 0.19 H 08/09/21 14:35: Magnesium 2.1, Ferritin 704 H 08/09/21 20:50: Troponin I High Sens 84 H 08/10/21 00:54: Troponin I High Sens 80 H Micro: Microbiology 08/09/21 14:35 Nasal Secretion SARS-CoV-2 Antigen (Rapid) - Final SARS-CoV-2 (COVID 19) Radiography Diagnostic Testing: Radiology Impression Chest X-Ray 08/09/21 15:00 IMPRESSION: 1. Stable borderline cardiomegaly. No evidence of congestive failure. There is mild central congestion. 2. Interval worsening of diffuse atypical infiltrate greater on the RIGHT than LEFT. No carrie consolidation or effusion Electronically Signed: Jamey Ortiz MD at 15:14 EST Tel , Service support , Chest CTA 08/09/21 15:52 Physical Exam Narrative Physical Examination: General: Awake, alert, oriented x 3 and cooperative, seated upright in the [facility] bedside chair, still fatigued, more comfortable than day prior appearing. Skin: Normal color, normal turgor, no icterus, no cyanosis except bilateral lower extremities venous stasis skin changes. HEENT: AT/NC, EOMI, PERRLA, improved MMM. Lungs: Remains diffusely diminished, greater bases, ongoing mildly increased respiratory rate, no rales, ronchi or wheezing. Heart: Regular rate with regular rhythm; no gallop, rub audible. Abdomen: Soft, obese, NTTP, no obvious distention but habitus makes exam difficult, normalized bowel sounds. Extremities: No cyanosis, clubbing, or edema. See skin. Neurological: Patient awake, alert, oriented as noted, cognitive function intact; pupils equally reactive to light and accommodation, cranial nerves II- XII grossly normal, moving all 4 extremities, no focal deficits, strength moderately to severely global decrease secondary to acute presentation. Psychiatric: Affect appears improved but still fatigued, no acute evidence of depressive or anxiety feelings. Assessment & Plan Assessment/Plan (1) Pneumonia due to COVID-19 virus: (2) LLOYD (acute kidney injury): (3) Hypoxia: PLAN: The patient is a 80 y/o M w/ PMHx: Chronic combined Systolic/Diastolic CHF, HTN, HLD, PAF, Parkinson's disease, Obesity who presents to the [facility] ED on 08/09/21 with history of unvaccinated COVID status with onset on 08/07/21 while at a very large [employer] gathering notable cough and dyspnea which has progressively worsened prompting ED evaluation. #1. Acute Hypoxia secondary to Acute Bilateral Pneumonia secondary to Acute Viral Syndrome, COVID-19 with unvaccinated status: Patient admitted to [facility] telemetry, maintained on COVID precautions, maintained on oxygen with wean as tolerated to room air, PRN albuterol, HOB, IS parameters w/ pending sputum cultures, awaiting respiratory viral panel, negative urine antigens, cycled cardiac enzymes with initial 99--> down to 80, likely secondary demand ischemia, will continue supportive care including q 2 hour turning including prone given no prone bed availability and judicious hydration, closely monitor for worsening status for ARDS and multiorgan failure, patient had been initiated and is continued on IV decadron x 10 doses, upon presentation patient with LLOYD with CrCl < 30 thus patient was not candidate for remdesivir, 08/10/2021 creatinine clearance has improved to 31.76 with BUN/creatinine 42/1.73. This is certainly not patient baseline but given small improvement will initiate IV remdesivir and closely monitor renal function and if does worsen to a creatinine clearance of 30 or less will necessitate hold/discontinuation. If respiratory status worsens and patient requires airvo or BIPAP transition will initiate barcitinib regimen additionally with ID involvement. #2. Acute kidney injury: Secondary to acute presentation as noted #1 with poor oral intake. Admission BUN/Cr 41/2.11, prior baseline creatinine noted to be primarily 1.1-1.2. Patient was very judiciously hydrated given underlying CHF history concurrently, hold nephrotoxic medicines, repeat 08/10/2021 BUN/creatinine 42/1.73, improved enough that creatinine clearance greater than 30 with as noted #1 initiation of remdesivir however we will closely follow function and if worsens again will necessitate discontinuation. Still holding nephrotoxic regimen. #3. Indeterminate cardiac enzyme: EKG in ED with sinus rhythm with no acute evidence of ischemia, CXR w/ Covid pneumonia, CTPA with no evidence of pulmonary embolism or dissection with bilateral Covid pneumonia, initial trop 99-->down to 80 likely secondary to acute demand. Will place on a monitored bed and trend cardiac enzymes. We will continue patient cardiac medications in addition to a spirin. #4. Hypokalemia: Admission K+ 3.1, magnesium level requested, supplementation given, repeat level 08/10/21 K 3.9. #5. Chronic combined diastolic/systolic CHF: Currently appears compensated, chest x-ray with Covid pneumonia, CTPA with Covid pneumonia appearance with no acute evidence of PE, judiciously hydrating given #1, #2, temporarily holding Lasix and lisinopril given acute kidney injury although has been improving as noted above, will continue patient home metoprolol regimen with hold parameters as needed, not on statin therapy. #6. Hypertension: Continue home regimen including verapamil, metoprolol with hold parameters as needed. Will resume patient Lasix and lisinopril as able pending renal function in a.m., PRN hydralazine. #7. Hyperlipidemia: Not on regimen, defer to outpatient. #8. PAF: Patient does not chronically anticoagulated, continue patient's metoprolol and verapamil regimen with hold parameters as needed. #9. Parkinson's disease: We will maintain on fall precautions, PT and OT requested, continue patient Sinemet regimen. #10. Gout: We will continue patient home allopurinol regimen. #11. Obesity: Weight loss and lifestyle changes encouraged. #12. DVT prophylaxis: SCDs, renally dose Lovenox per Covid protocol. #13. CODE status: No healthcare power of mixing machine tender cork rod nor living will in place. was present for initial discussions. Full Code status. Charges/Coding Visit Charges Inpatient E&M: 84118 Subs Hosp L2
[2021-08-10 07:47] LABS: Absolute Neutrophil Count 3.5 X10^3/uL (2.0-7.7); Basophil# 0.01 X10^3/uL; Basophil% 0.2 % (0-1); Hematocrit 39.7 % (40-54); Hemoglobin 12.9 g/dL (13.0-16.5); Lymphocyte % 23.8 % (19-41); Mean Corp Hgb Conc 32.5 g/dL (32-36); Mean Corpuscular Hgb 30.4 pg (27.0-32.0); Mean Corpuscular Volume 93.6 fL (80-94); Mean Platelet Vol. 10.1 fl (6.2-12.0); Monocyte# 0.28 X10^3/uL; Monocyte% 5.5 % (0-10); NRBC Flagged by Analyzer 0 % (0-5); Neutrophil # 3.52 X10^3/uL (2.7-7.7); Neutrophil % 69.7 % (47-70); Platelet Count 209 K/mm3 (150-450); RBC Distribution Width CV 14.7 % (11.6-14.6); RBC Distribution Width SD 50.5 fl (35.1-43.9); Red Blood Count 4.24 M/mm3 (4.6-6.2); White Blood Count 5.1 K/mm3 (4.4-11.0)
[2021-08-10 08:09] LABS: ALB/GLOB Ratio 0.6 RATIO (0.9-2.4); AST(SGOT) 51 U/L (15-37); Alanine Aminotransfer ALT/SGPT 31 U/L (16-61); Albumin, Serum 2.6 g/dL (3.2-5.0); Alkaline Phosphatase 86 U/L (45-117); Anion Gap 7 (5-15); BUN 42 mg/dL (7-18); BUN/Creat Ratio 24.3 RATIO (10-20); Calcium,Total 8.5 mg/dL (8.5-10.1); Chloride 104 mmol/L (98-107); Creatinine, Serum 1.73 mg/dL (0.70-1.30); EST Glomerular Filtration Rate 41 mL/min (>60); Est Glom Filt Rate - Afr Amer 49 mL/min (>60); Estimated Creatinine Clearance 31.76 ml/min; Globulin 4.3 g/dL (2.2-4.2); Glucose 172 mg/dL (74-106); Potassium 3.9 mmol/L (3.5-5.1); Protein, Total 6.9 g/dL (6.4-8.2); Sodium Level 140 mmol/L (136-145)
--- NOTE | 2021-08-10 08:25 | PCS.PANDOC ---
PANDEMIC DOCUMENTATION INITIATED: Date: 04/28/2021 Time: 190
[2021-08-10] MEDS: Enoxaparin 30 MG/0.3 ML Syringe SC (08:38)
[2021-08-10] MEDS: Carbidopa/Levodopa 25/100 Tablet PO ×3 (08:39→16:57)
[2021-08-10] MEDS: Multivitamins,Ther W-Minerals Tablet 1 TABLET PO (08:39)
[2021-08-10] MEDS: Allopurinol 300 MG Tablet PO (08:39)
[2021-08-10] MEDS: Aspirin 81 MG TAB.CHEW PO (08:39)
[2021-08-10] MEDS: dexAMETHasone 4 MG/ML Vial 6 MG IV (08:41)
[2021-08-10] MEDS: 0.9% Saline Lock 10 ML Syringe IV (08:41)
[2021-08-10] MEDS: hydrALAZINE 20 MG/ML Vial 10 MG IV (08:57)
[2021-08-10] MEDS: 0.9% Normal Saline 1,000 ML 100 ML IV (12:34)
--- NOTE | 2021-08-10 17:52 | NURSING ---
Pt was sitting in chair for dinner. Sat up in chair for lunch as well. Pt assisted back into bed but in prone position. Right before getting in bed, pt used Incentive Spirometer again. Sp02 is 95% at 5L NC currently while prone.
[2021-08-10] MEDS: Metoprolol(XL)Succ 50 MG Tablet PO (20:32)
[2021-08-10] MEDS: Albuterol 2.5 MG/3 ML VIAL.NEB. INHALATION (20:57)
[2021-08-11] VITALS (26 sets, daily range): BP systolic 133–190; BP diastolic 78–98; PULSE 69–99; RESP 18–30; TEMP 36.4–36.7; O2SAT 91–95
--- NOTE | 2021-08-11 06:30 | PN.HOSP_ITS ---
Subjective Subjective Patient with significant desaturations overnight with any ambulation with oxygenation down to 60% with episodes of PVC and tachycardia associated, transient improving however patient with significant increased oxygenation requirement and increased respiratory distress eventually requiring transition to air Vo. Patient denies nausea, emesis, abdominal pain, chest pain or dyspnea despite worsened respiratory appearance. Objective Data Objective Data Vital Signs: Vital Signs Temp Pulse Resp BP Pulse Ox 97.5 F L 93 18 133/78 H 95 08/11/21 00:29 08/11/21 04:16 08/11/21 00:29 08/11/21 00:29 08/11/21 00:29 Oxygen Flow Rate (L/min) 6 Oxygen Delivery Method High Flow Weight: 230 lb 2.601 oz Body Mass Index (BMI) 37.1 Intake & Output: Intake and Output for Last 24 Hours 08/09/21 08/10/21 08/11/21 23:59 23:59 23:59 Intake Total 2236.67 / 2436.67 1593.33 / 1593.33 Output Total 800 / 800 Balance 1436.67 / 1636.67 1593.33 / 1593.33 Lab / Micro Data Result Diagrams: 08/11/21 06:52 08/11/21 06:52 Labs: Laboratory Results - last 24 hr 08/10/21 07:07: WBC 5.1, RBC 4.24 L, Hgb 12.9 L, Hct 39.7 L, MCV 93.6, MCH 30.4, MCHC 32.5, RDW Std Deviation 50.5 H, RDW Coeff of Louis 14.7 H, Plt Count 209, MPV 10.1, Immature Gran % (Auto) 0.800, Neut % (Auto) 69.7, Lymph % (Auto) 23.8, Mon o % (Auto) 5.5, Eos % (Auto) 0.0, Baso % (Auto) 0.2, Absolute Neuts (auto) 3.5, Absolute Lymphs (auto) 1.20, Nucleated RBC % 0 08/10/21 07:07: Sodium 140, Potassium 3.9, Chloride 104, Carbon Dioxide 29.0, Anion Gap 7, BUN 42 H, Creatinine 1.73 H, Estim Creat Clear Calc 31.76, Est GFR (MDRD) Af Amer 49 L, Est GFR (MDRD) Non-Af 41 L, BUN/Creatinine Ratio 24.3 H, Glucose 172 H, Calcium 8.5, Total Bilirubin 0.40, AST 51 H, ALT 31, Alkaline Phosphatase 86, Total Protein 6.9, Albumin 2.6 L, Globulin 4.3 H, Albumin/Globulin Ratio 0.6 L Micro: Microbiology 08/10/21 06:45 Urine, Clean Catch Legionella Antigen - Final 08/10/21 06:45 Urine, Clean Catch Streptococcus pneumoniae Antigen (M - Final 08/09/21 14:35 Nasal Secretion SARS-CoV-2 Antigen (Rapid) - Final SARS-CoV-2 (COVID 19) Physical Exam Narrative Physical Examination: General: Awake, alert, oriented x 3 and cooperative, seated upright in the medical surgical bed, fatigued, increased work of breathing and accessory muscle usage, evidence of increased respiratory distress. Skin: Normal color, normal turgor, no icterus, no cyanosis except bilateral lower extremities venous stasis skin changes. HEENT: AT/NC, EOMI, PERRLA, MMM. Lungs: Remains diffusely diminished, greater bases, increased respiratory rate and accessory muscle usage, worse in distress, no rales, ronchi or wheezing. Heart: Regular rate with regular rhythm; no gallop, rub audible. Abdomen: Soft, obese, NTTP, no obvious distention but habitus makes exam difficult, normalized bowel sounds. Extremities: No cyanosis, clubbing, or edema. See skin. Neurological: Patient awake, alert, oriented as noted, cognitive function intact; pupils equally reactive to light and accommodation, cranial nerves II- XII grossly normal, moving all 4 extremities, no focal deficits, strength severely global decrease secondary to acute presentation. Psychiatric: Affect appears more fatigued, worsened respiratory distress evident, no acute evidence of depressive or anxiety feelings. Assessment & Plan Assessment/Plan (1) Pneumonia due to COVID-19 virus: (2) LLOYD (acute kidney injury): (3) Hypoxia: PLAN: The patient is a 80 y/o M w/ PMHx: Chronic combined Systolic/Diastolic CHF, HTN, HLD, PAF, Parkinson's disease, Obesity who presents to the [facility] ED on 08/09/21 with history of unvaccinated COVID status with onset on 08/07/21 while at a very large [employer] gathering notable cough and dyspnea which has progressively worsened prompting ED evaluation. #1. Acute Hypoxic Respiratory Failure secondary to Acute Bilateral Pneumonia secondary to Acute Viral Syndrome, COVID-19 with unvaccinated status: Patient admitted to [place] telemetry, maintained on COVID precautions, maintained on oxygen with wean as tolerated to room air however did require 08/11/2021 transition to air Vo, PRN albuterol, HOB, IS parameters w/ pending sputum cultures, awaiting respiratory viral panel, negative urine antigens, cycled cardiac enzymes with initial 99-->down to 80, likely secondary demand ischemia, continue supportive care including q 2 hour turning including prone given no prone bed availability and judicious hydration, closely monitor for worsening status for ARDS and multiorgan failure, patient had been initiated and is continued on IV decadron x 10 doses, upon presentation patient with LLOYD with CrCl < 30 thus patient was not candidate for remdesivir, 08/10/2021 creatinine clearance has improved to 31.76 with BUN/creatinine 42/1.73 therefore remdesivir initiated, 08/11/2021 BUN/creatinine 49/1.50 with creatinine clearance 36.63, will continue to closely trend. Given respiratory status decline with now initiation of airvo will consult infectious disease for consideration of barcitinib regimen. If patient does transition to BiPAP we will also consult pulmonary medicine. #2. Acute kidney injury: Secondary to acute presentation as noted #1 with poor oral intake. Admission BUN/Cr 41/2.11, prior baseline creatinine noted to be primarily 1.1-1.2. Patient was very judiciously hydrated given underlying CHF history concurrently, held nephrotoxic medicines, repeat 08/11/21 BUN/Cr 49/1.50, improving, CrCl > 30 still with ongoing remdesivir. Will continue to home nephrotoxic regimen but if renal function improves further will add back lasix especially given #1. #3. Indeterminate cardiac enzyme: EKG in ED with sinus rhythm with no acute evidence of ischemia, CXR w/ Covid pneumonia, CTPA with no evidence of pulmonary embolism or dissection with bilateral Covid pneumonia, initial trop 99-->down to 80 likely secondary to acute demand. Placed on a monitored bed with trending as noted. We will continue patient metoprolol in addition to aspirin. Not on statin therapy. #4. Hypokalemia: Admission K+ 3.1, magnesium level requested, supplementation given, repeat level 08/11/21 K 4.3. #5. Chronic combined diastolic/systolic CHF: Currently appears compensated, chest x-ray with Covid pneumonia, CTPA with Covid pneumonia appearance with no acute evidence of PE, judiciously hydrating given #1, #2, temporarily holding Lasix and lisinopril given acute kidney injury although has been improving as noted above, will continue patient home metoprolol regimen with hold parameters as needed, not on statin therapy. #6. Hypertension: Continue home regimen including verapamil, metoprolol with hold parameters as needed. Will resume patient Lasix and lisinopril once renal function at baseline, PRN hydralazine. #7. Hyperlipidemia: Not on regimen, defer to outpatient. #8. PAF: Patient does not chronically anticoagulated, continue patient's metoprolol and verapamil regimen with hold parameters as needed. #9. Parkinson's disease: We will maintain on fall precautions, PT and OT requested, continue patient Sinemet regimen. #10. Gout: We will continue patient home allopurinol regimen. #11. Obesity: Weight loss and lifestyle changes encouraged. #12. DVT prophylaxis: SCDs, renally dose Lovenox per Covid protocol. #13. CODE status: No healthcare power of cloth cutting inspector nor living will in place. was present for initial discussions. Full Code status. Charges/Coding Visit Charges Inpatient E&M: 21434 Subs Hosp L3
[2021-08-11 07:22] LABS: Absolute Lymphocyte Count 1.31 X10^3/uL (0.83-4.51); Absolute Neutrophil Count 15.5 X10^3/uL (2.0-7.7); Basophil# 0.03 X10^3/uL; Basophil% 0.2 % (0-1); Hematocrit 40.5 % (40-54); Hemoglobin 13.3 g/dL (13.0-16.5); Lymphocyte # 1.31 X10^3/ul (0.83-4.51); Lymphocyte % 7.3 % (19-41); Mean Corp Hgb Conc 32.8 g/dL (32-36); Mean Corpuscular Hgb 30.6 pg (27.0-32.0); Mean Corpuscular Volume 93.1 fL (80-94); Mean Platelet Vol. 10.3 fl (6.2-12.0); Monocyte# 0.97 X10^3/uL; Monocyte% 5.4 % (0-10); NRBC Flagged by Analyzer 0 % (0-5); Neutrophil # 15.49 X10^3/uL (2.7-7.7); Neutrophil % 86.2 % (47-70); Platelet Count 270 K/mm3 (150-450); RBC Distribution Width CV 14.6 % (11.6-14.6); RBC Distribution Width SD 50.4 fl (35.1-43.9); Red Blood Count 4.35 M/mm3 (4.6-6.2)
[2021-08-11 07:59] LABS: ALB/GLOB Ratio 0.6 RATIO (0.9-2.4); AST(SGOT) 41 U/L (15-37); Alanine Aminotransfer ALT/SGPT 15 U/L (16-61); Albumin, Serum 2.6 g/dL (3.2-5.0); Alkaline Phosphatase 88 U/L (45-117); Anion Gap 6 (5-15); BUN 49 mg/dL (7-18); BUN/Creat Ratio 32.7 RATIO (10-20); Calcium,Total 8.4 mg/dL (8.5-10.1); Chloride 106 mmol/L (98-107); EST Glomerular Filtration Rate 48 mL/min (>60); Est Glom Filt Rate - Afr Amer 58 mL/min (>60); Estimated Creatinine Clearance 36.63 ml/min; Globulin 4.4 g/dL (2.2-4.2); Glucose 145 mg/dL (74-106); Potassium 4.3 mmol/L (3.5-5.1); Sodium Level 140 mmol/L (136-145)
[2021-08-11] MEDS: Multivitamins,Ther W-Minerals Tablet 1 TABLET PO (08:22)
[2021-08-11] MEDS: Metoprolol(XL)Succ 50 MG Tablet PO ×2 (08:22→20:33)
[2021-08-11] MEDS: Aspirin 81 MG TAB.CHEW PO (08:23)
[2021-08-11] MEDS: Allopurinol 300 MG Tablet PO (08:23)
[2021-08-11] MEDS: Verapamil SR 240 MG Tablet 120 MG PO (08:23)
[2021-08-11] MEDS: Carbidopa/Levodopa 25/100 Tablet PO ×3 (08:23→16:16)
[2021-08-11] MEDS: dexAMETHasone 4 MG/ML Vial 6 MG IV (08:24)
[2021-08-11] MEDS: Enoxaparin 30 MG/0.3 ML Syringe SC (08:24)
[2021-08-11] MEDS: 0.9% Saline Lock 10 ML Syringe IV ×3 (08:24→13:55)
--- NOTE | 2021-08-11 09:35 | CASEMGMT ---
CELESTE TURNER Assessment: Face to Face with pt for initial transition planning/care coordination assessment. CELESTE TURNER introduced self and role at [facility], pt voices understanding and consents to assessment. Pt is A/O x4 and answers all questions appropriately at this time. Pt sitting up in bed with O2 on in no distress. Care providers, pharmacy, and demographics verified/updated. Admitting Dx: acute hypoxia, COVID PNA PCP:[facility] Specialists:Yemi, cardio; Justin, neuro; Bijan, spine surgeon Preferred Pharmacy: [facility] Insurance: [employer] Prescription Benefit: yes LW/HPOA: Pt denies having a LW/DPOA and denies need for info regarding AD. LNOK: Keiko Orozco, ; Yarely eGller dtr Living Arrangements: Pt lives with in a split level house with 3 steps to enter with 2 rails. Pt reports he bathes himself and his assists him in getting dressed. Transportation: Pt drives self and denies concerns with transportation. DME/HHC/SNF: Pt has a handicapped accessible bathroom on one level with shower, shower stools and grab bars. The upstairs bathroom has handicapped accessible tub with a toilet riser and grab bars. Pt also has a motorized scooter, cane and walker on every floor. Pt denies having HHC in the past and has been in [facility] TCU. Pt states his is negative. He is able to quarantine using a separate bedroom and bathroom. He has family who can provide him with groceries and supplies. Pt was tested for COVID at [facility]. Discussed local in network DME companies, pt has no preference should he need home O2. Pt states no concerns with going home at time of dc. Pt states no further concerns/needs. CM to follow. Advised pt to ask CM if any further question/concerns/needs arise, voices understanding. Pt Goal: Home Plan: Home, will follow for O2 and therapy.
[2021-08-11] MEDS: hydrALAZINE 20 MG/ML Vial 10 MG IV ×2 (11:12→20:40)
[2021-08-11] MEDS: Metoprolol Tartrate 5 MG/5 ML Vial IV (13:55)
--- NOTE | 2021-08-11 15:56 | NURSING ---
both patients and daughter mari updated. informed of contact info for patient daughter whom is an SPORTS ATTORNEY at [employer] Nilam Sanches [phone]
--- NOTE | 2021-08-11 16:11 | NURSING ---
discussed POC with patient. discussed update to family. pt verbalized and this time his and daughter Yarely are the only two that needs to be called updated/medications. states can give information to his daughter Nilam whom he mentioned earlier as a nurse but not necessary. states he has not talk with daughter Nilam for 2 years. No call placed to this daughter. pt's work of breathing improved since repositioning on left side. pt's bed moved for comfort to view television. airvo maintained. spo2 up to 95%
[2021-08-12] VITALS (22 sets, daily range): BP systolic 68–180; BP diastolic 38–108; PULSE 61–88; RESP 12–37; TEMP 36.6–36.8; O2SAT 90–97
[2021-08-12] MEDS: hydrALAZINE 20 MG/ML Vial 10 MG IV ×2 (03:30→14:23)
--- NOTE | 2021-08-12 06:23 | PN.HOSP_ITS ---
Subjective Subjective Patient overnight with significantly worsened respiratory status with near maxed out settings on air Vo with ongoing increased work of breathing accessory muscle usage. Given patient worsened status infectious disease and pulmonary medicine consulted with initiation of barcitinib per Infectious dis. Pulmonary medicine did administer Lasix 40 mg IV x1 as well. Patient denies chills, nausea, emesis, abdominal pain, chest pain. Objective Data Objective Data Vital Signs: Vital Signs Temp Pulse Resp BP Pulse Ox 97.8 F 80 24 H 151/92 H 90 08/12/21 06:12 08/12/21 06:12 08/12/21 06:12 08/12/21 06:12 08/12/21 06:12 Oxygen Flow Rate (L/min) 50 Oxygen Delivery Method Airvo Weight: 230 lb 13.184 oz Body Mass Index (BMI) 37.1 Intake & Output: Intake and Output for Last 24 Hours 08/10/21 08/11/21 08/12/21 23:59 23:59 23:59 Intake Total 2236.67 / 2436.67 2543.33 / 2843.33 400 / 400 Output Total 800 / 800 550 / 700 150 / 150 Balance 1436.67 / 1636.67 1993.33 / 2143.33 250 / 250 Lab / Micro Data Result Diagrams: 08/12/21 07:50 08/12/21 07:50 Labs: Laboratory Results - last 24 hr 08/11/21 06:52: WBC 18.0 H, RBC 4.35 L, Hgb 13.3, Hct 40.5, MCV 93.1, MCH 30.6, MCHC 32.8, RDW Std Deviation 50.4 H, RDW Coeff of Louis 14.6, Plt Count 270, MPV 10.3, Immature Gran % (Auto) 0.900, Neut % (Auto) 86.2 H, Lymph % (Auto) 7.3 L, [place] % (Auto) 5.4, Eos % (Auto) 0.0, Baso % (Auto) 0.2, Absolute Neuts (auto) 15.5 H, Absolute Lymphs (auto) 1.31, Nucleated RBC % 0 08/11/21 06:52: Sodium 140, Potassium 4.3, Chloride 106, Carbon Dioxide 28.0, Anion Gap 6, BUN 49 H, Creatinine 1.50 H, Estim Creat Clear Calc 36.63, Est GFR (MDRD) Af Amer 58 L, Est GFR (MDRD) Non-Af 48 L, BUN/Creatinine Ratio 32.7 H, Glucose 145 H, Calcium 8.4 L, Total Bilirubin 0.30, AST 41 H, ALT 15 L, Alkaline Phosphatase 88, Total Protein 7.0, Albumin 2.6 L, Globulin 4.4 H, Albumin/Globulin Ratio 0.6 L Micro: Microbiology 08/10/21 18:00 Sputum, Expectorated/Coughed Gram Stain - Final 08/10/21 18:00 Sputum, Expectorated/Coughed Respiratory Culture - Preliminary Appears to be normal respiratory mich. Further studies to follow. 08/10/21 06:45 Urine, Clean Catch Legionella Antigen - Final 08/10/21 06:45 Urine, Clean Catch Streptococcus pneumoniae Antigen (M - Final 08/09/21 14:35 Nasal Secretion SARS-CoV-2 Antigen (Rapid) - Final SARS-CoV-2 (COVID 19) Physical Exam Narrative Physical Examination: General: Awake, alert, oriented x 3 and cooperative, seated upright in the medical surgical bed, fatigued, worsened appearance, increased work of breathing and accessory muscle usage, evidence of increased respiratory distress. Skin: Normal color, normal turgor, no icterus, no cyanosis except bilateral lower extremities venous stasis skin changes. HEENT: AT/NC, EOMI, PERRLA, MMM. Lungs: Remains diffusely diminished, greater bases, increased respiratory rate and accessory muscle usage, worse in distress, transition now to air Vo, no rales, ronchi or wheezing. Heart: Regular rate with regular rhythm; no gallop, rub audible. Abdomen: Soft, obese, NTTP, no obvious distention but habitus makes exam difficult, normalized bowel sounds. Extremities: No cyanosis, clubbing, or edema. See skin. Neurological: Patient awake, alert, oriented as noted, cognitive function intact; pupils equally reactive to light and accommodation, cranial nerves II- XII grossly normal, moving all 4 extremities, no focal deficits, strength severely global decrease secondary to acute presentation. Psychiatric: Affect appears more dyspneic, currently on air Vo, evidence of respiratory distress ongoing, no acute evidence of depressive or anxiety feelings. Assessment & Plan Assessment/Plan (1) Pneumonia due to COVID-19 virus: (2) LLOYD (acute kidney injury): (3) Hypoxia: PLAN: The patient is a 80 y/o M w/ PMHx: Chronic combined Systolic/Diastolic CHF, HTN, HLD, PAF, Parkinson's disease, Obesity who presents to the [facility] ED on 08/09/21 with history of unvaccinated COVID status with onset on 08/07/21 while at a very large Thanksgiving gathering notable cough and dyspnea which has progressively worsened prompting ED evaluation. #1. Acute Hypoxic Respiratory Failure secondary to Acute Bilateral Pneumonia secondary to Acute Viral Syndrome, COVID-19 with unvaccinated status: Patient admitted to [facility] telemetry, maintained on COVID precautions, maintained on oxygen with wean as tolerated to room air however did require 08/11/2021 transition to air Vo, PRN albuterol, HOB, IS parameters w/ pending sputum cultures, awaiting respiratory viral panel, negative urine antigens, cycled cardiac enzymes with initial 99-->down to 80, likely secondary demand ischemia, continue supportive care including q 2 hour turning including prone given no prone bed availability and judicious hydration, closely monitor for worsening status for ARDS and multiorgan failure, patient had been initiated and is continued on IV decadron x 10 doses, upon presentation patient with LLOYD with CrCl < 30 thus patient was not candidate for remdesivir, 08/10/2021 creatinine clearance has improved to 31.76 with BUN/creatinine 42/1.73 therefore remdesivir initiated with continued close renal function monitoring. 08/11/2021 respiratory status worsened with ID consultation for initiation of barcitinib. Given 08/12/21 evidence higher near max usage airvo pulmonary medicine consulted with pulse dose Lasix initiated. If further worsened and transitions to continuous BiPAP may necessitate ICU transfer. #2. Acute kidney injury: Secondary to acute presentation as noted #1 with poor oral intake. Admission BUN/Cr 41/2.11, prior baseline creatinine noted to be primarily 1.1-1.2. Patient was very judiciously hydrated given underlying CHF history concurrently, usually held nephrotoxic medicines with continued repeat renal function improving, 08/12/2021 BUN/creatinine 40/1.18. Will resume patient's Lasix and lisinopril regimen given this improvement. Patient with pulse dose IV Lasix per pulmonary 08/12/2021. #3. Indeterminate cardiac enzyme: EKG in ED with sinus rhythm with no acute evidence of ischemia, CXR w/ Covid pneumonia, CTPA with no evidence of pulmonary embolism or dissection with bilateral Covid pneumonia, initial trop 99-->down to 80 likely secondary to acute demand. Placed on a monitored bed with trending as noted. We will continue patient metoprolol in addition to aspirin. Not on statin therapy. #4. Hypokalemia: Admission K+ 3.1, magnesium level requested, supplementation given, repeat level 08/12/21 K 4.4. #5. Chronic combined diastolic/systolic CHF: Currently appears compensated, chest x-ray with Covid pneumonia, CTPA with Covid pneumonia appearance with no acute evidence of PE, judiciously hydrated given #1 #2. Initially held Lasix and lisinopril however renal function has significantly improved thus will restart 08/12/2021. IV pulse dose Lasix admitted 08/12/2021 therefore will restart oral 08/13/2021. Patient not on statin therapy. #6. Hypertension: Continued on home verapamil, metoprolol regimen, given renal function improvement will resume Lasix and lisinopril 08/12/2021. As needed IV hydralazine. #7. Hyperlipidemia: Not on regimen, defer to outpatient. #8. PAF: Patient does not chronically anticoagulated, continue patient's metoprolol and verapamil regimen with hold parameters as needed. #9. Parkinson's disease: We will maintain on fall precautions, PT and OT requested, continue patient Sinemet regimen. #10. Gout: We will continue patient home allopurinol regimen. #11. Obesity: Weight loss and lifestyle changes encouraged. #12. DVT prophylaxis: SCDs, renally dose Lovenox per Covid protocol. #13. CODE status: No healthcare power of ip technology transactions attorney nor living will in place. present for initial discussions. Full Code status. Charges/Coding Visit Charges Inpatient E&M: 11592 Subs Hosp L3
[2021-08-12 08:18] LABS: Absolute Lymphocyte Count 1.37 X10^3/uL (0.83-4.51); Absolute Neutrophil Count 15.5 X10^3/uL (2.0-7.7); Basophil# 0.07 X10^3/uL; Basophil% 0.4 % (0-1); Hematocrit 42.6 % (40-54); Hemoglobin 13.7 g/dL (13.0-16.5); Lymphocyte # 1.37 X10^3/ul (0.83-4.51); Lymphocyte % 7.5 % (19-41); Mean Corp Hgb Conc 32.2 g/dL (32-36); Mean Corpuscular Hgb 29.8 pg (27.0-32.0); Mean Corpuscular Volume 92.6 fL (80-94); Mean Platelet Vol. 10.2 fl (6.2-12.0); Monocyte# 1.01 X10^3/uL; Monocyte% 5.5 % (0-10); NRBC Flagged by Analyzer 0 % (0-5); Neutrophil # 15.51 X10^3/uL (2.7-7.7); Neutrophil % 84.3 % (47-70); Platelet Count 311 K/mm3 (150-450); RBC Distribution Width SD 50.5 fl (35.1-43.9); White Blood Count 18.4 K/mm3 (4.4-11.0)
[2021-08-12] MEDS: Aspirin 81 MG TAB.CHEW PO (08:31)
[2021-08-12] MEDS: Carbidopa/Levodopa 25/100 Tablet PO ×3 (08:31→16:46)
[2021-08-12 09:03] LABS: ALB/GLOB Ratio 0.6 RATIO (0.9-2.4); AST(SGOT) 50 U/L (15-37); Alanine Aminotransfer ALT/SGPT 23 U/L (16-61); Albumin, Serum 2.6 g/dL (3.2-5.0); Alkaline Phosphatase 100 U/L (45-117); Anion Gap 8 (5-15); BUN 40 mg/dL (7-18); BUN/Creat Ratio 33.9 RATIO (10-20); Calcium,Total 8.5 mg/dL (8.5-10.1); Chloride 108 mmol/L (98-107); Creatinine, Serum 1.18 mg/dL (0.70-1.30); EST Glomerular Filtration Rate 63 mL/min (>60); Est Glom Filt Rate - Afr Amer 77 mL/min (>60); Estimated Creatinine Clearance 46.56 ml/min; Globulin 4.3 g/dL (2.2-4.2); Glucose 132 mg/dL (74-106); Potassium 4.4 mmol/L (3.5-5.1); Protein, Total 6.9 g/dL (6.4-8.2); Sodium Level 143 mmol/L (136-145)
[2021-08-12] MEDS: Verapamil SR 240 MG Tablet 120 MG PO (10:24)
[2021-08-12] MEDS: Enoxaparin 30 MG/0.3 ML Syringe SC (10:24)
[2021-08-12] MEDS: dexAMETHasone 4 MG/ML Vial 6 MG IV (10:24)
[2021-08-12] MEDS: Metoprolol(XL)Succ 50 MG Tablet PO (10:25)
[2021-08-12] MEDS: Multivitamins,Ther W-Minerals Tablet 1 TABLET PO (10:25)
[2021-08-12] MEDS: Allopurinol 300 MG Tablet PO (10:25)
[2021-08-12 10:50] LABS: BNP,B-Type NATRIURETIC PEPTIDE 488.2 pg/mL (0-100)
[2021-08-12 11:32] LABS: D-Dimer Quantitative (DVT/PE) 1.57 FEU/ug/m (0.27-0.49)
[2021-08-12 11:50] LABS: Procalcitonin 0.11 ng/mL (0.00-0.09)
--- NOTE | 2021-08-12 12:00 | CON.PCM.ID_ITS ---
Assessment & Plan Assessment/Plan (1) COVID-19: PLAN: Sx started 08/07. Recommended get tested. Isolate for 20 days from 08/07, recommend vaccine. He is unvaccinated. On dex and remdesivir. Reviewed EUA and risks/benefits, we agree to start baricitinib. Will check labs now given worsened condition. CT neg for PE on admit. With severity of illness, would do intermediate dose lovenox. Will follow, thank you (2) Acute hypoxemic respiratory failure: (3) LLOYD (acute kidney injury): HPI Consult Data Date of Consult: 08/12/21 HPI Narrative HPI Narrative: BARON MCCABE, is a 80 M who presented 08/09 with sx since 08/07. Unvaccinated. not tested, asymptomatic. Pt c/o MARINELLI, cough, SOB, fatigue. No change in taste/smell. Admitted, on airvo, started on dex/remdesivir. Full ROS performed and neg except as noted above. [facility] Medical History LLOYD (acute kidney injury) Arrhythmia Bilateral leg weakness Chronic combined systolic and diastolic CHF (congestive heart failure) Congenital heart anomaly Debility Essential hypertension Fall Fever Gout Lower extremity weakness Lumbar spinal stenosis Multiple premature ventricular complexes Obesity Parkinsons disease Paroxysmal atrial fibrillation Sepsis SIRS (systemic inflammatory response syndrome) Home Medications multivitamin with folic acid 1 tab PO DAILY 01/23/20 [History Last Taken Unknown] lisinopril 20 mg tablet 20 mg PO BID tab 11/12/20 [History Last Taken Unknown] metoprolol succinate 50 mg tablet,extended release 24 hr 50 mg PO BID tab 11/12/20 [History Last Taken Unknown] furosemide [Lasix] 40 mg PO BID #14 tab 02/21/21 [Rx Last Taken Unknown] allopurinol 100 mg tablet 300 mg PO DAILY tab 03/12/21 [History Last Taken U nknown] carbidopa ER 25 mg-levodopa 100 mg tablet,extended release 1 tab PO TID 07/04/21 [History Last Taken Unknown] verapamil 120 mg tablet,extended release 120 mg PO DAILY tab 07/28/21 [History Last Taken Unknown] Allergy/AdvReac Type Severity Reaction Status Date / Time procaine [From Novocain] Allergy Unknown unknown Verified 08/09/21 14:21 acetaminophen [From Parker] Allergy PT UNSURE Verified 08/09/21 14:21 OF REACTION bacitracin Allergy PT UNSURE Verified 08/09/21 14:21 [From Neosporin OF REACTION ([id number])] hydrocodone [From Parker] Allergy PT UNSURE Verified 08/09/21 14:21 OF REACTION neomycin Allergy PT UNSURE Verified 08/09/21 14:21 [From Neosporin OF REACTION ([id number])] Penicillins [PCN] Allergy Rash Verified 08/09/21 14:21 polymyxin B Allergy PT UNSURE Verified 08/09/21 14:21 [From Neosporin OF REACTION ([id number])] sulfamethoxazole Allergy PT UNSURE Verified 08/09/21 14:21 [From Bactrim] OF REACTION trimethoprim [From Bactrim] Allergy PT UNSURE Verified 08/09/21 14:21 OF REACTION oxycodone AdvReac PT UNSURE Verified 08/09/21 14:21 OF REACTION Family History (Updated 08/09/21 @ 18:[address] Regina Monreal MD) Father Cancer prostate Mother Dementia Surgical History History of amputation of toe History of cardioversion (1989) History of foot surgery History of hernia repair History of left heart catheterization (1989) Previous back surgery Social History (Updated 08/09/21 @ 18:[address] Regina Monreal MD) household members: spouse Smoking Status: Former smoker how long ago did patient quit smoking: Quit > 30 years prior, smoked ~ 1 pack/week. alcohol intake: never substance use type: does not use caffeine: Yes (4 drinks daily) Physical Exam Const alert and oriented x3 Constitutional Narrative: ill appearing General Appearance: cooperative Exam Limitations: no limitations HEENT normocephalic and head/scalp atraumatic Eyes PERRL and EOMs intact bilaterally Neck supple and No nodes Resp Auscultation: diminished lung sounds Cardio regular rate and regular rhythm GI normal to inspection, nondistended, normoactive bowel sounds Extremity no clubbing, cyanosis or edema Skin no rashes or lesions noted Neuro CN's II-XII intact bilaterally Lab / Micro Data Result Diagrams: 08/12/21 07:50 08/12/21 07:50 Labs: Laboratory Results - last 24 hr 08/12/21 03:15: C-React Prot Ext Range 42.40 H 08/12/21 03:15: B-Natriuretic Peptide 488.2 H 08/12/21 07:50: WBC 18.4 H, RBC 4.60, Hgb 13.7, Hct 42.6, MCV 92.6, MCH 29.8, MCHC 32.2, RDW Std Deviation 50.5 H, RDW Coeff of Louis 15.0 H, Plt Count 311, MPV 10.2, Immature Gran % (Auto) 2.300 H, Neut % (Auto) 84.3 H, Lymph % (Auto) 7.5 L , [place] % (Auto) 5.5, Eos % (Auto) 0.0, Baso % (Auto) 0.4, Absolute Neuts (auto) 15.5 H, Absolute Lymphs (auto) 1.37, Nucleated RBC % 0 08/12/21 07:50: Sodium 143, Potassium 4.4, Chloride 108 H, Carbon Dioxide 27.0, Anion Gap 8, BUN 40 H, Creatinine 1.18, Estim Creat Clear Calc 46.56, Est GFR (MDRD) Af Amer 77, Est GFR (MDRD) Non-Af 63, BUN/Creatinine Ratio 33.9 H, Gluco se 132 H, Calcium 8.5, Total Bilirubin 0.40, AST 50 H, ALT 23, Alkaline Phosphatase 100, Total Protein 6.9, Albumin 2.6 L, Globulin 4.3 H, Albumin/Globulin Ratio 0.6 L 08/12/21 11:04: D-Dimer Quant (PE/DVT) 1.57 H* 08/12/21 11:04: Procalcitonin 0.11 H Micro: Microbiology 08/10/21 18:00 Sputum, Expectorated/Coughed Gram Stain - Final 08/10/21 18:00 Sputum, Expectorated/Coughed Respiratory Culture - Preliminary 08/09/21 16:47 Blood Culture (Wb) - Left Hand Blood Culture - Preliminary No growth in 48 hours. 08/09/21 14:35 Blood Culture (Wb) - Anticubital Right Blood Culture - Preliminary No growth in 48 hours.
[2021-08-12] MEDS: 0.9% Saline Lock 10 ML Syringe IV ×2 (14:24→16:54)
--- NOTE | 2021-08-12 16:27 | CON.PCM.CC_ITS ---
Assessment & Plan Assessment/Plan (1) Acute hypoxemic respiratory failure: (2) Pneumonia due to COVID-19 virus: (3) Chronic combined systolic and diastolic CHF (congestive heart failure): (4) Essential hypertension: PLAN: RECOMMENDATIONS: 1. Continue remdesivir (08/14/2021), Decadron (08/19/2021) and baricitinib (08/25/2021) 2. Wean supplemental oxygen as tolerated 3. Aggressive diuresis to maintain euvolemia 4. Encourage incentive spirometer, Acapella and prone positioning as t olerated 5. Monitor for complications of therapy such as hyperglycemia and infections 6. Out of bed as tolerated IMPRESSIONS: 1. Acute hypoxic respiratory failure secondary to COVID-19 Patient currently unvaccinated and receiving recommended therapies. This is complicated by patient's underlying congestive heart failure. Patient has no t been continued on his baseline diuretic therapy. We will challenge with diuretics today. Patient should continue BiPAP therapy with sleep, but okay to attempt Airvo during the day. Wean oxygen as tolerated. Did encourage prone positioning, Acapella and incentive spirometer, but patient appears to be precontemplative. 2. Chronic combined CHF Patient with increased cardiac demand secondary to problem #1. Patient did have acute kidney injury, so lisinopril has been held. Would dose with diuretics as renal function allows. Okay to continue with rate control if necessary. 3. Unvaccinated status/advanced age/hypertension/hyperlipidemia/Parki nson's/gout/obesity Complicates care, management, recovery and prognosis. Continue Kushal carvalho's medications. Patient appears to be resistant to prone positioning secondary to body habitus. HPI Consult Data Date of Consult: 08/12/21 HPI Narrative HPI Narrative: BARON MCCABE is a 80 M, with past medical history listed below, who presented to [facility] 08/09/2021 secondary to progressive shortness of breath. Patient reports he started to have increased shortness of breath 1 to 2 days before Thanksgiving. Patient states he had a normal appetite at Thanksgiving and had not had any significant worsening in his lower extremity swelling. Patient does have a history of nonischemic cardiomyopathy and aortic valve replacement. Patient reportedly follows with Dr. Bragg at baseline and does not wear supplemental oxygen. Patient has not been vaccinated against COVID-19. In the ER, patient was noted to be 99.3 ?F. Patient was tachypneic at 22 breaths/min, but noted to be 70% on room air. Patient was placed on 4 L nasal cannula with improvement. EKG showed normal sinus rhythm. Patient had some improvement with interventions in ER, but was requiring 6 L nasal cannula to maintain saturations. Attempts to wean were unsuccessful, so the patient was admitted to the floor for further evaluation. Patient was noted to have acute kidney injury and COVID-19 positive testing. Over the course of the hospitalization, patient's oxygenation has continued to worsen, so a pulmonary consult was obtained. Patient was requiring BiPAP this morning, but has been going in between BiPAP and Airvo for oxygenation. Patient overall feels subjectively unchanged compared to presentation. Patient denies any nausea, vomiting or diarrhea at this time. Patient has never required pulmonary interventions previously. Patient has never had supplemental oxygen or inhalers. Patient does report a 4-pack-year smoking history and has never had a pulmonary function test. Patient believes his lower extremity swelling is at its baseline. Patient does report a cough that is mildly productive. Patient does have decreased mobility at home and uses a lift chair. Patient states he feels most comfortable sitting upright. Patient does report snoring at baseline, but is never been formally diagnosed with obstructive sleep apnea. Review of systems otherwise negative from a constitutional, HEENT, respiratory, cardiovascular, GI, genitourinary, musculoskeletal, skin, neurologic, psychiatric and hematologic system unless stated above. [facility] Medical History LLOYD (acute kidney injury) Arrhythmia Bilateral leg weakness Chronic combined systolic and diastolic CHF (congestive heart failure) Congenital heart anomaly Debility Essential hypertension Fall Fever Gout Lower extremity weakness Lumbar spinal stenosis Multiple premature ventricular complexes Obesity Parkinsons disease Paroxysmal atrial fibrillation Sepsis SIRS (systemic inflammatory response syndrome) Home Medications multivitamin with folic acid 1 tab PO DAILY 01/23/20 [History Last Taken Un known] lisinopril 20 mg tablet 20 mg PO BID tab 11/12/20 [History Last Taken Unknown] metoprolol succinate 50 mg tablet,extended release 24 hr 50 mg PO BID tab 11/12/20 [History Last Taken Unknown] furosemide [Lasix] 40 mg PO BID #14 tab 02/21/21 [Rx Last Taken Unknown] allopurinol 100 mg tablet 300 mg PO DAILY tab 03/12/21 [History Last Taken Unknown] carbidopa ER 25 mg-levodopa 100 mg tablet,extended release 1 tab PO TID 07/04/21 [History Last Taken Unknown] verapamil 120 mg tablet,extended release 120 mg PO DAILY tab 07/28/21 [History Last Taken Unknown] Allergy/AdvReac Type Severity Reaction Status Date / Time procaine [From Novocain] Allergy Unknown unknown Verified 08/09/21 14:21 acetaminophen [From Lott] Allergy PT UNSURE Verified 08/09/21 14:21 OF REACTION bacitracin Allergy PT UNSURE Verified 08/09/21 14:21 [From Neosporin OF REACTION ([id number])] hydrocodone [From Lott] Allergy PT UNSURE Verified 08/09/21 14:21 OF REACTION neomycin Allergy PT UNSURE Verified 08/09/21 14:21 [From Neosporin OF REACTION ([id number])] Penicillins [PCN] Allergy Rash Verified 08/09/21 14:21 polymyxin B Allergy PT UNSURE Verified 08/09/21 14:21 [From Neosporin OF REACTION ([id number])] sulfamethoxazole Allergy PT UNSURE Verified 08/09/21 14:21 [From Bactrim] OF REACTION trimethoprim [From Bactrim] Allergy PT UNSURE Verified 08/09/21 14:21 OF REACTION oxycodone AdvReac PT UNSURE Verified 08/09/21 14:21 OF REACTION Family History (Updated 08/09/21 @ 18:[address] Regina Moneral MD) Father Cancer prostate Mother Dementia Surgical History History of amputation of toe History of cardioversion (1989) History of foot surgery History of hernia repair History of left heart catheterization (1989) Previous back surgery Social History (Updated 08/09/21 @ 18:[address] Regina Monreal MD) household members: spouse Smoking Status: Former smoker how long ago did patient quit smoking: Quit > 30 years prior, smoked ~ 1 pack/week. alcohol intake: never substance use type: does not use caffeine: Yes (4 drinks daily) ROS ROS Narrative See HPI Physical Exam Const alert and oriented x3 General Appearance: cooperative and ill appearing Positive for acutely Exam Limitations: no limitations Nutritional Appearance: obese HEENT normocephalic and head/scalp atraumatic Eyes PERRL and EOMs intact bilaterally Neck supple and No nodes Chest inspection of chest normal Chest: symmetrical chest wall rise; Negative for crepitus Resp Auscultation: diminished lung sounds Cardio regular rate, regular rhythm, S1 normal heart sound and S2 normal heart sound Heart Sounds: murmur systolic II/ soft early GI normal to inspection, nondistended, normoactive bowel sounds Extremity General Extremity: edema bilateral (Trace) lower extremity; Negative for clubbing or cyanosis Skin no rashes or lesions noted Neuro CN's II-XII intact bilaterally, moves all extremities and no focal motor deficits Psych mental status grossly normal, thought process normal and cooperative Lab / Micro Data Result Diagrams: 08/12/21 07:50 08/12/21 07:50 Labs: Laboratory Results - last 24 hr 08/12/21 03:15: C-React Prot Ext Range 42.40 H 08/12/21 03:15: B-Natriuretic Peptide 488.2 H 08/12/21 07:50: WBC 18.4 H, RBC 4.60, Hgb 13.7, Hct 42.6, MCV 92.6, MCH 29.8, MCHC 32.2, RDW Std Deviation 50.5 H, RDW Coeff of Louis 15.0 H, Plt Count 311, MPV 10.2, Immature Gran % (Auto) 2.300 H, Neut % (Auto) 84.3 H, Lymph % (Auto) 7.5 L , [place] % (Auto) 5.5, Eos % (Auto) 0.0, Baso % (Auto) 0.4, Absolute Neuts (auto) 15.5 H, Absolute Lymphs (auto) 1.37, Nucleated RBC % 0 08/12/21 07:50: Sodium 143, Potassium 4.4, Chloride 108 H, Carbon Dioxide 27.0, Anion Gap 8, BUN 40 H, Creatinine 1.18, Estim Creat Clear Calc 46.56, Est GFR (MDRD) Af Amer 77, Est GFR (MDRD) Non-Af 63, BUN/Creatinine Ratio 33.9 H, Glucose 132 H, Calcium 8.5, Total Bilirubin 0.40, AST 50 H, ALT 23, Alkaline Phosphatase 100, Total Protein 6.9, Albumin 2.6 L, Globulin 4.3 H, Albumin/Globulin Ratio 0.6 L 08/12/21 11:04: D-Dimer Quant (PE/DVT) 1.57 H* 08/12/21 11:04: Procalcitonin 0.11 H Micro: Microbiology 08/10/21 18:00 Sputum, Expectorated/Coughed Gram Stain - Final 08/10/21 18:00 Sputum, Expectorated/Coughed Respiratory Culture - Prelimin selina 08/09/21 16:47 Blood Culture (Wb) - Left Hand Blood Culture - Preliminary No growth in 48 hours. 08/09/21 14:35 Blood Culture (Wb) - Anticubital Right Blood Culture - Preliminary No growth in 48 hours. Charges/Coding Visit Charges Inpatient E&M: 54284 Init Hosp L3
[2021-08-12] MEDS: Furosemide 40 MG/4 ML Vial IV (16:54)
--- NOTE | 2021-08-12 20:30 | NURSING ---
Pt found resting in chair. Upon assessment pt having difficulty talking with right facial droop, right arm flaccid. Stroke team called.
--- NOTE | 2021-08-12 20:41 | CT_ITS ---
We are attempting to reach an attending provider to discuss findings. An addendum with communication details will be sent when the communication is complete. EXAMINATION : Head CT w/out contrast HISTORY : stroke COMPARISON : 6 01/23/2020. TECHNIQUE : Multiple contiguous axial images were obtained from the skull base to the vertex without intravenous contrast. A radiation dose optimization technique was used for this scan. FINDINGS : There is no evidence for acute intracranial hemorrhage, mass effect, or midline shift. There is no extra-axial fluid collection. There are periventricular white matter changes consistent with chronic microvascular ischemic disease. There is sulcal widening and ventricular enlargement consistent with cerebral atrophy. There is normal souza-white differentiation, without CT evidence of acute ischemia or infarct. The skull base and calvarium are unremarkable. The orbits are unremarkable. The paranasal sinuses are clear. The mastoid air cells are well-aerated. The soft tissues are unremarkable. CT/STROKE Brain/Head without Cont IMPRESSION: No acute intracranial abnormality. Chronic involutional and ischemic changes of the brain. Electronically Signed: Sher Portillo MD at 21:19 EST Tel , Service support ,
--- NOTE | 2021-08-12 20:42 | CM.ED ---
SW Note Referral Source: Stroke Alert Referral Reason: Stroke Alert SW responded to stroke alert with patient. No family present. SW advised staff to contact social welfare administrator if needs arise. Staff verbalized understanding. Ceci RODRIGES
--- NOTE | 2021-08-12 20:57 | CT_ITS ---
We are attempting to reach an attending provider to discuss findings. An addendum with communication details will be sent when the communication is complete. EXAM: CT Angiography Head and Neck With Intravenous Contrast CLINICAL INDICATION: 80 years old, Male; stroke TECHNIQUE: [place]/head and neck CT angiography protocol performed with intravenous contrast. This CT exam was performed using one or more of the following dose reduction techniques: automated exposure control, adjustment of the mA and/or kV according to patient size, and/or use of iterative reconstruction technique. This report was created using [employer] report generation technology. MIP reconstructed images were created and reviewed. CONTRAST: IV 100mL [id number]-[id number] COMPARISON: None. FINDINGS: Artifacts: Motion artifact. HEAD: Right anterior cerebral artery: Unremarkable. No significant stenosis at the visualized segments. Anterior communicating artery is present. No aneurysm. Right middle cerebral artery: Unremarkable. No significant stenosis at the visualized segments. No aneurysm. Right posterior cerebral artery: Unremarkable. No occlusion or significant stenosis. No aneurysm. Left anterior cerebral artery: Unremarkable. No significant stenosis at the visualized segments. No aneurysm. Left middle cerebral artery: There is an abrupt occlusion of the distal left M1 segment of the MCA. No flow is seen in the MCA distal to this occlusion. No aneurysm. Left posterior cerebral artery: Unremarkable. No occlusion or significant stenosis. No aneurysm. Basilar artery: Unremarkable. No significant stenosis. No aneurysm. Great vessels of aortic arch: Unremarkable. Normal anatomy, patent. Other vasculature: No vascular malformation. NECK: Right common carotid artery: Portions of the right CCA is not seen due to artifact. No significant stenosis. No dissection or occlusion. Right internal carotid artery: Atherosclerotic plaque in the right carotid bulb causing no significant stenosis. No dissection or occlusion. Right external carotid artery: Unremarkable. No occlusion. Right vertebral artery: There appears to be a high-grade stenosis in the origin of the right vertebral artery due to atherosclerotic plaque. No dissection or occlusion. Left common carotid artery: Unremarkable. No significant stenosis. No dissection or occlusion. Left internal carotid artery: Extensive atherosclerotic plaque in the left carotid bulb causing an approximate 70% stenosis. No dissection or occlusion. Left external carotid artery: Unremarkable. No occlusion. Left vertebral artery: Unremarkable. No significant stenosis. No dissection or occlusion. Lung apices: Dense consolidative infiltrates in both lungs worrisome for pneumonia. Soft tissues: Unremarkable. CAROTID STENOSIS REFERENCE USING NASCET CRITERIA: % ICA stenosis = (1 - narrowest ICA diameter/diameter of distal cervical ICA) x 100. Mild - <50% stenosis. Moderate - 50-69% stenosis. Severe - 70-94% stenosis. Near occlusion - 95-99% stenosis. Occluded - 100% stenosis. CT/CTA Head AND Neck W/ Contrast IMPRESSION: 1. There is an abrupt occlusion of the distal left M1 segment of the MCA. No flow is seen in the MCA distal to this occlusion. 2. There appears to be a high-grade stenosis in the origin of the right vertebral artery due to atherosclerotic plaque. Evaluation is limited due to excessive motion artifact. 3. Extensive atherosclerotic plaque in the left carotid bulb causing an approximate 70% stenosis. Evaluation is limited due to excessive motion artifact. 4. Dense consolidative infiltrates in both lungs worrisome for pneumonia. Electronically Signed: Raciel Lino MD at 21:35 EST Tel , Service support ,
--- NOTE | 2021-08-12 21:15 | NURSING ---
Keiko called to question about recent surgery due shaving of pubis area, reports no recent surgery.
--- NOTE | 2021-08-12 21:20 | NURSING ---
Pts chema on phone, dicussed tpa adminstationa per Dr Nadeem MYRICK neurology, Pt ok for tpa.
--- NOTE | 2021-08-12 21:21 | NURSING ---
Dr Portillo from radiology relayed nothing acute showing on CT head
--- NOTE | 2021-08-12 21:30 | NURSING ---
called back to inform of recent back surgery in past 3 months, Dr Haines notified.
--- NOTE | 2021-08-12 21:33 | NURSING ---
Responded to stroke alert at 2024. LKW 2014. Blood sugar 207. This RN performed NIH, significant findings included altered LOC, visual changes, left facial droop, R arm and leg flaccid, sensory loss in R arm and leg (no response to painful stimuli). Dr. Haines at bedside. Nursing power press supervisor and RNs transported pt to CT. This RN called [facility] and faxed face sheet as well. [facility] to beam in on ED robot in [place].
--- NOTE | 2021-08-12 21:36 | PCM.HOSP.N ---
Hospitalist Note Stroke alert was called for patient found right-sided weakness, language deficit/loss of his speech and altered mental status after 15 minutes of last evaluation by RN about 8:15 PM. Patient was noted to CT scan for CT head and thereafter CT angiogram head and neck were also done. [facility] neurologist was called and I talked to him. Patient on DVT prophylactic dose and baby aspirin but not on anticoagulation. Earlier patient admitted for severe COVID-19 pneumonia on 70% FiO2 air Vo which was increased to 100% FiO2 BiPAP during a stroke alert. On exam patient found right upper extremity and lower extremity weakness with facial droop, language deficit and found appropriate for TPA. He has history of paroxysmal A. fib but not on anticoagulation. Overall assessment was consistent with left MCA syndrome and tPA was ordered. Family was called and gave consent for TPA. At time of TPA, CTA result was pending. There is recommendation for a phone LVO should be airlifted for tertiary care for thrombectomy.
--- NOTE | 2021-08-12 21:54 | NURSING ---
Dr Haines on phone with Keiko, updating on CT results, and need to transport by air to [facility] due to occlusions.
[2021-08-12 22:01] LABS: Bedside Glucose 207 mg/dL (70-110)
--- NOTE | 2021-08-12 22:30 | PRO.PCM_ITS ---
Assessment & Plan Assessment/Plan (1) Acute hypoxemic respiratory failure: (2) Pneumonia due to COVID-19 virus: (3) Ischemic stroke: PLAN: Patient on 100% FiO2 BiPAP. Decision was made for intubation/ventilator with [facility] neurologist, prior to transfer. Patient was given 20 mg IV etomidate. Patient sedated and did not require succinylcholine. With rapid sequence method, Gleido scope, 4mm curved blade was passed through base of tongue and cord was identified. Under vision, 7.5 mm ET tube inserted. Color change was noticed in colorimeter. Air entry auscultated on both sides of chest. Chest x-ray ordered. Last vitals before intubation respiratory rate 26 to 35/min, heart rate 71. Blood pressure 146/85. Patient will need IV propofol and fentanyl drip. Total time of the visit including total time spent in counseling or coordination of care, (more than 50% of the total time, spent in obtaining medical i nformation from nurses and other ancillary care providers,explaining to the patient about labs, imaging, diagnosis and management), discussion with [facility] neurologist, decision about intubation, talking to patient's , review of labs and imaging is 60 minutes Procedures Hospitalists Procedures: 62098 Insert Emergency Airway
--- NOTE | 2021-08-12 22:44 | NURSING ---
Pt. to be intubated by Dr. Haines - 221608/12/21 20mg of Etomidate given - 2217 7.5 ET tube inserted with measurement of 23 at the lip, positive color change, bilateral breath sounds, Chest xray to be ordered -2224 Propofol gtt started and verbal order from Dr. Haines to start fentanyl -2239 OG inserted
--- NOTE | 2021-08-12 22:50 | RAD_ITS ---
EXAM: XR Chest, 1 View CLINICAL INDICATION: 80 years old, Male; intubation TECHNIQUE: Frontal view of the chest. This report was created using [employer] report generation technology. COMPARISON: XR Chest dated 08/09/2021 FINDINGS: Lungs and pleural spaces: There are infiltrates throughout the right lung and in the left mid and lower lung which are similar to prior study. No pneumothorax. No effusion. Heart: Unremarkable. Cardiac silhouette not enlarged. Mediastinum: Central airways and mediastinal contour are unremarkable. Bones/joints: Unremarkable. Soft tissues: Unremarkable. Tubes, lines and devices: Enteric tube tip in the gastric antrum. The endotracheal tube (ETT) is in satisfactory position with tip 3.8 cm above the halima. RAD/Chest 1 View (Portable) IMPRESSION: 1. Enteric tube tip in the gastric antrum. 2. There are infiltrates throughout the right lung and in the left mid and lower lung which are similar to prior study. Electronically Signed: Raciel Lino MD at 23:43 EST Tel , Service support ,
--- NOTE | 2021-08-12 23:55 | DS.PCM_ITS ---
Providers Date of Admission: 08/09/21 Primary Care Physician: Dr. Charli Delvalle MD Consultations 08/11/21 16:15 Consult: Infectious Disease Routine Consulting Provider: Shon Gates Reason for Consult: COVID PNA, Resp failure, worsening, on airvo now. EMERGENT Consult: No MD Notified: Yes Date Notified: 08/12/21 Time Notified: 04:01 Method of Notification: Answering Service 08/12/21 06:24 Consult: Track Welder / Pulmonary Medicine Routine Consulting Provider: Pulmonary Medicine efra Girard Reason for Consult: COVID PNA, Resp failure, worsening EMERGENT Consult: No MD Notified: Yes Date Notified: 08/12/21 Time Notified: 06:24 Method of Notification: Verbal 08/12/21 22:41 Consult: Track Welder / Pulmonary Medicine Routine Consulting Provider: Pulmonary Medicine efra Girard Reason for Consult: stroke for alteplase EMERGENT Consult: Yes MD Notified: Yes Date Notified: 08/12/21 Time Notified: 21:32 Method of Notification: Provider Initiated Reason For Visit: ACUTE HYPOXIA, COVID PNA Diagnosis Discharge Diagnosis (1) Acute hypoxemic respiratory failure: Status: Acute Code(s): J96.01 - Acute respiratory failure with hypoxia (2) Pneumonia due to COVID-19 virus: Status: Acute Code(s): U07.1 - COVID-19; J12.82 - Pneumonia due to coronavirus disease 2019 (3) Ischemic stroke: Status: Acute Code(s): I63.9 - Cerebral infarction, unspecified Medications at Discharge Home Medications multivitamin with folic acid 1 tab PO DAILY 01/23/20 lisinopril 20 mg tablet 20 mg PO BID tab 11/12/20 metoprolol succinate 50 mg tablet,extended release 24 hr 50 mg PO BID tab 11/03 furosemide [Lasix] 40 mg PO BID #14 tab 02/21/21 allopurinol 100 mg tablet 300 mg PO DAILY tab 03/12/21 carbidopa ER 25 mg-levodopa 100 mg tablet,extended release 1 tab PO TID 07/04/21 verapamil 120 mg tablet,extended release 120 mg PO DAILY tab 07/28/21 Hospital Course Operations None Procedures EKG Summary of Care Provided Minutes Spent on Discharge: 35 Hospital Course: DISCHARGE NOTE: Discharge Diagnoses: #1. Acute Hypoxic Respiratory Failure secondary to Acute Bilateral Pneumonia secondary to Acute Viral Syndrome, COVID-19 with unvaccinated status #2. 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 Acute kidney injury, Secondary to acute presentation as noted #1 with poor oral intake #4. Indeterminate cardiac enzyme, likely secondary to demand secondary to #1. #5. Chronic combined diastolic/systolic CHF #6. Hypertension #7. Hyperlipidemia #8. PAF #9. Parkinson's disease #10. Gout #11. Obesity Discharge Summary: The patient is a 80 y/o M w/ PMHx: Chronic combined Systolic/Diastolic CHF, HTN, HLD, PAF, Parkinson's disease, Obesity who presented to the [facility] ED on 08/09/21 with history of unvaccinated COVID status with onset on 08/07/21 while at a very large [employer] gathering notable cough and dyspnea which has progressively worsened prompting ED evaluation. Patient admitted to [facility] telemetry, maintained on COVID precautions, maintained on oxygen with wean as tolerated to room air however did require 08/11/2021 transition to air Vo, PRN albuterol, HOB, IS parameters w/ negative sputum culture, negative urine antigens, cycled cardiac enzymes with initial 99-->down to 80, likely secondary demand ischemia, continue supportive care including q 2 hour turning including prone given no prone bed availability and judicious hydration, patient had been initiated and is continued on IV decadron x 10 doses, upon presentation patient with LLOYD with CrCl < 30 thus patient was not candidate for remdesivir, 08/10/2021 creatinine clearance has improved to 31.76 with BUN/creatinine 42/1.73 therefore remdesivir initiated with continued close renal function monitoring. 08/11/2021 respiratory status worsened with ID consultation for initiation of barcitinib. Given 08/12/21 evidence higher near max usage airvo pulmonary medicine consulted with pulse dose Lasix initiated. Patient with concurrent acute kidney injury secondary to acute Covid presentation with admission BUN/Cr 41/2.11, prior baseline creatinine noted to be primarily 1.1-1.2. Patient was very judiciously hydrated given underlying CHF history concurrently, usually held nephrotoxic medicines with continued repeat renal function improving, 08/12/2021 BUN/creatinine 40/1.18. Given improvement patient was resumed on home oral Lasix and lisinopril regimen. On 08/12/2021 at approximately 8:15 PM patient with sudden onset right-sided weakness, language deficits with loss of speech and altered mentation potentially for approximately 15 minutes with stroke call with immediate transition to CT scan as well as CTA head and neck. [facility] neurology was contacted. Reviewed patient's situation including ongoing DVT prophylaxis as well as baby aspirin. Patient's presentation per neurology consistent with left MCA syndrome with initially TPA ordered however family did report spinal surgery within the last 3 months therefore this was deferred and CTA head and neck resulted with evidence of an LVO therefore patient was transitioned via air flight to tertiary facility [facility] for thrombectomy consideration. Weight / BMI Weight Weight: 230 lb 13.184 oz Body Mass Index (BMI) 37.1 ABG / Lab / Microbiology Data Result Diagrams: 08/12/21 07:50 08/12/21 07:50 Laboratory: Laboratory Results - last 24 hr 08/12/21 20:29: POC Glucose 207 H Microbiology: Microbiology 08/10/21 18:00 Sputum, Expectorated/Coughed Gram Stain - Final 08/10/21 18:00 Sputum, Expectorated/Coughed Respiratory Culture - Final 08/09/21 16:47 Blood Culture (Wb) - Left Hand Blood Culture - Preliminary No growth in 48 hours. 08/09/21 14:35 Blood Culture (Wb) - Anticubital Right Blood Culture - Preliminary No growth in 48 hours. 08/10/21 06:45 Urine, Clean Catch Legionella Antigen - Final 08/10/21 06:45 Urine, Clean Catch Streptococcus pneumoniae Antigen (M - Final 08/09/21 14:35 Nasal Secretion SARS-CoV-2 Antigen (Rapid) - Final SARS-CoV-2 (COVID 19) Radiography Diagnostic Testing: Radiology Impression Brain CT 08/12/21 20:41 IMPRESSION: No acute intracranial abnormality. Chronic involutional and ischemic changes of the brain. Electronically Signed: Sher Portillo MD at 21:19 EST Tel , Service support , ADDENDUM: 08/12/212137 IMPRESSION: No acute intracranial abnormality. Chronic involutional and ischemic changes of the brain. N.B. : The above Results were Read Back by Sher Portillo MD to Yarely Martin RN, and understanding confirmed on 08/12/2021 21:31:55 (ET). Electronically Signed: Sher Portillo MD at 21:19 EST Tel , Service support , Head/Neck CTA 08/12/21 20:57 IMPRESSION: 1. There is an abrupt occlusion of the distal left M1 segment of the MCA. No flow is seen in the MCA distal to this occlusion. 2. There appears to be a high-grade stenosis in the origin of the right vertebral artery due to atherosclerotic plaque. Evaluation is limited due to excessive motion artifact. 3. Extensive atherosclerotic plaque in the left carotid bulb causing an approximate 70% stenosis. Evaluation is limited due to excessive motion artifact. 4. Dense consolidative infiltrates in both lungs worrisome for pneumonia. Electronically Signed: Raciel Lino MD at 21:35 EST Tel , Service support , ADDENDUM: 08/12/21 2153 IMPRESSION: 1. There is an abrupt occlusion of the distal left M1 segment of the MCA. No flow is seen in the MCA distal to this occlusion. 2. There appears to be a high-grade stenosis in the origin of the right vertebral artery due to atherosclerotic plaque. Evaluation is limited due to excessive motion artifact. 3. Extensive atherosclerotic plaque in the left carotid bulb causing an approximate 70% stenosis. Evaluation is limited due to excessive motion artifact. 4. Dense consolidative infiltrates in both lungs worrisome for pneumonia. N.B. : The above Results were Read Back by Raciel Lino MD to Alba Prather RN, and understanding confirmed on 08/12/2021 21:46:43 (ET). Electronically Signed: Raciel Lino MD at 21:35 EST Tel , Service support , Chest X-Ray 08/12/21 22:50 IMPRESSION: 1. Enteric tube tip in the gastric antrum. 2. There are infiltrates throughout the right lung and in the left mid and lower lung which are similar to prior study. Electronically Signed: Raciel Lino MD at 23:43 EST Tel , Service support , Meaningful Use Info Meaningful Use Diagnoses (Choose all that apply): Ischemic CVA CVA Therapy Assessed for PT,OT and/or ST?: No Reason therapy not assessed?: Palliative Care (Patient transition stat to tertiary facility with evaluation for thrombectomy following stroke onset.) Ischemic Stroke Antithrombotic order at d/c?: No Reason antithrombotic not ordered: Palliative Care (Patient transitioned immediately to tertiary facility for consideration thrombectomy following immediate onset stroke.) Dx of Atrial fib/flutter?: Yes Anticoagulant at discharge?: No Reason anticoagulant not ordered: Palliative Care (Patient had not been anticoagulated with history of paroxysmal atrial fibrillation prior, transferred to tertiary facility following immediate stroke onset.) Statins at discharge?: No Reason Statin not ordered: Palliative Care (Patient with immediate transition to tertiary facility for thrombectomy consideration following immediate stroke onset.) Primary Dx Acute Ischemic CVA?: Yes IV tPA ordered during stay?: No Reason IV t-PA not ordered: Medical Contraindication (Patient did initially have TPA ordered however with family discussions had surgical intervention on the spine less than 3 months prior, deferred with transition for thrombectomy consideration to tertiary facility.) Discharge Plan Admission Admit Date/Time: 08/09/21 17:42 Attending Provider: Regina Monreal Primary Care Provider: Charli Delvalle Consulting Providers: Kapil Peres ; Luis Vegas ; Vaishali Mcgowan NP ; Shon Cuevas Discharge Orders/Prescriptions Prescriptions: No Action allopurinol 100 mg tablet 300 mg PO DAILY RF: 0 carbidopa-levodopa 25-100 mg tablet extended release 1 tab PO TID RF: 0 multivitamin with folic acid 1 TABLET tablet 1 tab PO DAILY RF: 0 metoprolol succinate 50 mg tablet extended release 24 hr 50 mg PO BID RF: 0 lisinopril 20 mg tablet 20 mg PO BID RF: 0 furosemide [Lasix] 40 mg tablet 40 mg PO BID Qty: 14 RF: 0 verapamil 120 mg tablet extended release 120 mg PO DAILY RF: 0 Referrals / Follow Up: Charli Delvalle MD [Primary Care Provider] - Charges/Coding Visit Charges Inpatient E&M: 67947 Disch Hosp
--- NOTE | 2021-08-13 00:28 | NURSING ---
Pt. leaving with air transport crew at 2330. Report given to crew.
== END 2021-08-12 23:30 | disposition short-term general hospital (02) | DRG 208 ==
LOC: ED 17:04 → MS3 18:07 → ICU 08-12 21:58
PROVIDERS: Internal Medicine Infectious Disease; Admitting Provider Family Medicine; Emergency Provider Emergency Medicine; PCP Family Medicine; Visit Provider Family Medicine
DX: U07.1 COVID-19 (principal); J12.82 Pneumonia due to coronavirus disease 2019; J96.01 Acute respiratory failure with hypoxia; I63.512 Cerebral infarction due to unspecified occlusion or stenosis of left middle cerebral artery; N17.9 Acute kidney failure, unspecified; I50.42 Chronic combined systolic (congestive) and diastolic (congestive) heart failure; I24.8 Other forms of acute ischemic heart disease; G81.91 Hemiplegia, unspecified affecting right dominant side; I11.0 Hypertensive heart disease with heart failure; E78.5 Hyperlipidemia, unspecified; I48.0 Paroxysmal atrial fibrillation; G20 Parkinson's disease; M10.9 Gout, unspecified; E66.9 Obesity, unspecified; E87.6 Hypokalemia; R29.810 Facial weakness; R47.89 Other speech disturbances; R41.89 Other symptoms and signs involving cognitive functions and awareness; Z79.899 Other long term (current) drug therapy; Z87.891 Personal history of nicotine dependence; Z68.37 Body mass index [BMI] 37.0-37.9, adult
CPT/HCPCS: 31500; 36415; 70450; 70496; 70498; 71045; 71275; 80053; 82550; 82728; 82962; 83615; 83735; 83880; 84145; 84484; 85025; 85379; 85384; 86140; 87040; 87070; 87205; 87426; 87449; 93005; 94002; 94640; 94660; 94668; 97110; 97162; 97166; 97530; 99251; 99285; J7030; J7050; Q9967; A4216; G0463; J1940